=== PATIENT | female | born 1965 | race Two or more races ===

== ENCOUNTER 2024-10-09 12:30 | Inpatient (IN) | payer OTHER, SELFPAY ==
[2024-10-09] VITALS (8 sets, daily range): BP systolic 124–156; BP diastolic 83–106; PULSE 78–151; RESP 18–26; TEMP 36.9–38.3; O2SAT 92–97; BMI 77.2; BMI 66.6
--- NOTE | 2024-10-09 12:59 | XR_ITS ---
Examination: Foot, left, 3 views Technique: AP, oblique, lateral views foot, 3 views Date and time of exam: 4 1337 hrs. Indications: Foot pain this week no trauma Findings: Moderate osteopenia The films are severely overpenetrated No fracture No cortical bone destruction Mild to moderate osteoarthritis first metatarsophalangeal joint Prominent soft tissue swelling dorsum of the foot 4 mm plantar bony calcaneal spur Impression: Prominent soft tissue swelling dorsum of the foot No cortical bone obstruction or foreign body
--- NOTE | 2024-10-09 12:59 | XR_ITS ---
Examination: Duplex scan of the lower extremity, unilateral left complete Date and time of exam: October 09, 2024 1415 hrs. Indications: Left leg swelling and pain beginning 3 days ago Technique: Duplex scan of the extremity veins using B-mode/grayscale imaging and Doppler spectral analysis and color flow Attention is directed to internal echogenicity, compression and augmentation involving these veins, color flow assessment, spectral analysis Findings: Major deep venous structures in the extremity demonstrate normal course and caliber. There is no evidence of deep vein thrombosis. Normal color flow and spectral analysis Impression: Negative for DVT..
--- NOTE | 2024-10-09 12:59 | PD.EDRME ---
Rapid Medical Screening Exam RME Arrival date/time: 10/09/24 12:30 Chief Complaint: Extremity Problem,Nontraumatic Time Seen by Provider: 10/09/24 12:36 Vital signs: Vital Signs Temperature 98.6 F 10/09/24 12:32 Pulse Rate 122 H 10/09/24 12:32 Respiratory Rate 18 10/09/24 12:32 Blood Pressure 126/89 H 10/09/24 12:32 Pulse Oximetry (%) 96 10/09/24 12:32 Oxygen Delivery Method Room Air 10/09/24 12:32 RME Narrative: LLE pain, redness, swelling x3 days. Hx lymphedema BLE
[2024-10-09 13:36] LABS: Basophils # (Auto) 0.1 Thou/mm3 (0.0-0.2); Basophils % (Auto) 1 % (0-2.5); Eosinophils % (Auto) 0 % (0-10); Hematocrit 38.6 % (36.0-46.0); Hemoglobin 12.7 g/dL (12.0-16.0); Immature Granulocytes % (Auto) 1 % (0-0); Immature Granulocytes Auto 0.25 Thou/mm3 (0.00-0.00); Lymphocytes # (Auto) 1.8 Thou/mm3 (1.0-4.8); Lymphocytes % (Auto) 9 % (10-50); Mean Corpuscular HGB Conc 32.9 g/dl (31.0-37.0); Mean Corpuscular Hemoglobin 29.5 pg (25.0-35.0); Mean Corpuscular Volume 90 fL (80-100); Monocytes # (Auto) 0.8 Thou/mm3 (0.0-0.8); Monocytes % (Auto) 4 % (0-12); Neutrophils # (Auto) 17.7 Thou/mm3 (1.8-7.7); Neutrophils % (Auto) 86 % (37-80); Nucleated Red Blood Cell # 0.04 Thou/mm3 (0.00-0.00); Nucleated Red Blood Cell % 0 /100 WBC (0); Platelet Count 152 Thou/mm3 (140-440); RDW Standard Deviation 43.7 fL (36.4-46.3); Red Blood Count 4.31 Miln/mm3 (4.00-5.20); White Blood Count 20.7 Thou/mm3 (3.6-11.0)
[2024-10-09 13:42] LABS: B-Type Natriuretic Peptide 227 pg/mL (0-100)
[2024-10-09 13:43] LABS: Alanine Aminotransferase 25 U/L (10-49); Albumin, Serum 4.2 gm/dL (3.5-5.0); Albumin/Globulin Ratio 1.4 (1.2-2.2); Alkaline Phosphatase 127 U/L (46-116); Anion Gap 4 (7-16); Aspartate Amino Transferase 21 U/L (0-34); BUN/Creatinine Ratio 14 Ratio (12-20); Blood Urea Nitrogen 13 mg/dL (9-23); C-Reactive Protein 28.3 mg/dL (0.0-0.9); Calcium 9.1 mg/dL (8.3-10.6); Calcium (Corrected) 9.1 mg/dL (8.5-10.1); Carbon Dioxide 28.5 mMol/L (20.0-31.0); Chloride 96 mMol/L (98-107); Creatinine (Component) 0.9 mg/dL (0.6-1.3); Estimated Creatinine Clearance 121.6 mL/min (>60); Globulin 2.9 gm/dL (2.3-3.5); Glucose 203 mg/dL (74-106); Osmolality,Calculated 263 (275-295); Potassium 3.8 mMol/L (3.4-5.1); Sed Rate (ESR) 93 mm/hr (0-30); Sodium 128 mMol/L (136-145); Total Protein 7.1 gm/dL (5.7-8.2); eGFR > 60 See Note
--- NOTE | 2024-10-09 15:02 | PD.EDEXREM ---
ED Extremity Problem RME/HPI General Chief complaint: Extremity Problem,Nontraumatic Stated complaint: LEFT LEG PAIN/SWELLING x 3 DAYS, DENIES INJURY Time Seen by Provider: 10/09/24 12:36 Arrival date/time: 10/09/24 12:30 RME / HPI RME / HPI Narrative: 58-year-old female patient with significant history of bilateral lymphedema, congestive heart failure, hypertension, came in with family for evaluation regarding sudden onset of worsening right lower leg swelling and redness for the last 3 days, getting worse for the last 2 days. Patient also complained of worsening cough, dyspnea on exertion, and orthopnea,. Patient denies any trauma to the leg. Denies any other complaints except for pain also. No medications taken prior to arrival. Related Data Allergies Allergy/AdvReac Type Severity Reaction Status Date / Time No Known Allergies Allergy Verified 10/09/24 12:33 Review of Systems Review of Systems Narrative Review of Systems: Review of system reviewed and within normal limits except mentioned in HPI ED Exam Narrative Physical exam: VITAL SIGNS: Reviewed. GENERAL APPEARANCE: Alert and interactive, follows commands, no acute distress, HEAD AND FACE: Non-traumatic. ENT: PERRL, pink conjunctivitis, eyelid no trauma, Mucous membrane moist. NECK: Supple, nontender, no nuchal rigidity. CHEST: No tenderness, no crepitus, no paradoxical movement, no retractions. LUNGS: Clear, well ventilated, symmetric, no rales, no wheezing, no ronchi, no stridor, good breath sounds bilaterally. HEART: Regular rate, regular rhythm, no murmur, no gallops. ABDOMEN: Soft, positive bowel sounds, nondistended, no guarding, nontender, no rebound, no masses, RECTAL: Deferred. GENITAL: Deferred. NEUROLOGICAL: Gross motor function intact sensory function intact, Appropriate for age. MUSCULOSKELETAL: low back nontender, full range of motion. EXTREMITIES: Right lower leg swelling, redness, tenderness no skin breakdown noted no cyanosis noted, +3 edema bilateral lower extremity SKIN: Color pink, dry, no rash, no lacerations, no abrasions, no contusions. LYMPHATICS: Deferred. Course Quality Measures none Orders Category Date Time Status Bedside COVID-19 Antigen Test NOW Care 10/09/24 17:12 Active COVID-19 Screening Questionnaire NOW Care 10/09/24 15:46 Active Decision to Admit X1 Care 10/09/24 15:[address] lower leg LT wo con Stat Exams 10/09/24 16:31 Completed US venous duplex LE LT Stat Exams 10/09/24 12:59 Completed XR foot comp LT min 3V Stat Exams 10/09/24 12:59 Completed BNP [B-Type Natriuretic Peptide] Stat Lab 10/09/24 13:16 Completed Blood Culture (Lab) Stat Lab 10/09/24 15:30 Received CBC Stat Lab 10/09/24 13:16 Completed CMP [Comprehensive Metabolic Panel] Stat Lab 10/09/24 13:16 Completed CRP [C-Reactive Protein] Stat Lab 10/09/24 13:16 Completed ESR [Sed Rate (ESR)] Stat Lab 10/09/24 13:16 Completed Lactate (Lactic Acid) Stat Lab 10/09/24 15:27 Completed Procalcitonin Stat Lab 10/09/24 15:27 Completed Vancomycin,Trough Timed Lab 10/11/24 09:00 Ordered Furosemide Inj [Lasix Inj] Med 10/09/24 15:01 Discontinued 40 mg IVP X1 ONE Piper/Tazo 3.375 gm [Zosyn] Med 10/09/24 15:02 Discontinued 3.375 gm in 50 ml IV X1 Vancomycin Inj 1,000 mg Med 10/09/24 17:09 Discontinued Sodium Chloride 0.9% 250 ml [Ns] 250 ml IV X1 Vancomycin Inj 1,000 mg Med 10/10/24 10:00 Active Vancomycin Inj 750 mg Sodium Chloride 0.9% 500 ml [Ns] 500 ml IV Q12H Vancomycin Inj 2,000 mg Med 10/09/24 17:45 Discontinued Sodium Chloride 0.9% 500 ml [Ns] 500 ml IV X1 Vancomycin Pharmacy to Dose Med 10/10/24 09:00 Active 1 each IV QDAY PRN Vital Signs Vital signs: Vital Signs Temperature 98.6 F 10/09/24 12:32 Pulse Rate 122 H 10/09/24 12:32 Respiratory Rate 18 10/09/24 12:32 Blood Pressure 126/89 H 10/09/24 12:32 Pulse Oximetry (%) 96 10/09/24 12:32 Oxygen Delivery Method Room Air 10/09/24 12:32 Extremity Problem MDM Narrative MDM Narrative:: 58-year-old female patient with significant history of bilateral lymphedema, congestive heart failure, hypertension, came in with family for evaluation regarding sudden onset of worsening right lower leg swelling and redness for the last 3 days, getting worse for the last 2 days. Patient also complained of worsening cough, dyspnea on exertion, and orthopnea,. Patient denies any trauma to the leg. Denies any other complaints except for pain also. No medications taken prior to arrival. Laboratory workup is significant for leukocytosis of 20.7. Sodium was noted to be 128, CT scan of the lower extremity showed Extensive edema in the left lower extremity Soft tissue defect lower leg adjacent to the distal fibula with periosteal new bone involving the fibula at this site consistent with early osteomyelitis Recommend MRI lower leg without contrast follow-up Patient ultrasound of the lower extremities negative for DVT Patient received IV Zosyn. Spoke with Dr. Hall, hospitalist, admitted the patient. Patient data External records reviewed:: None Clinical information provided by:: patient and family Social determinants that could affect healthcare access:: none Patient has the following chronic illnesses:: Hypertension, chronic lymphedema bilateral lower extremity How is presenting disease/condition affected by chronic disease/condition?: exacerbated by Evaluation data The following diagnostics were reviewed and interpreted by me:: lab results and radiology exam(s) Lab and/or radiology exams considered but not ordered:: None Interpretation Summary: CT scan of the lower extremity showed Extensive edema in the left lower extremity Soft tissue defect lower leg adjacent to the distal fibula with periosteal new bone involving the fibula at this site consistent with early osteomyelitis Recommend MRI lower leg without contrast follow-up CBC significant for leukocytosis. Pro-Ryan was noted to be 0.72. Ultrasound of the lower extremity negative for DVT. Medications / Prescriptions Medications or Prescriptions considered but not ordered:: None Medication administrations:: Medication Administration History Acetaminophen (Acetaminophen 325 Mg Tablet) 650 mg PO Q6H PRN PRN Reason: Fever >101.5 Stop: 11/08/24 18:28 Last Admin: 10/09/24 19:45 Dose: 650 mg Documented By: MATTHEW Enoxaparin Sodium (Enoxaparin Sod Inj 60 Mg/0.6 Ml Syringe) 60 mg SC BID [facility] Stop: 10/23/24 20:59 Last Admin: 10/09/24 21:21 Dose: 60 mg Documented By: MATTHEW Vancomycin HCl 1,000 mg/Vancomycin HCl 750 mg/ Sodium Chloride 500 mls @ 172 mls/hr IV Q12H [facility] Stop: 10/17/24 09:59 Piperacillin/Tazobactam/Dextrose (Zosyn) 50 mls @ 12.5 mls/hr IV Q8HR [facility] Stop: 10/17/24 05:59 Sodium Chloride (Ns) 1,000 mls @ 100 mls/hr IV .Q10H ONE Stop: 10/10/24 06:02 Last Admin: 10/09/24 20:46 Dose: 100 mls/hr Documented By: MATTHEW Magnesium Hydroxide (Milk Of Magnesia Susp 30 Ml Udc) 30 ml PO QDAY PRN; Protocol PRN Reason: CONSTIPATION Stop: 11/08/24 18:28 Ondansetron HCl (Ondansetron Inj 2 Mg/Ml Inj 2 Ml) 4 mg IV Q6H PRN; Protocol PRN Reason: NAUSEA OR VOMITING Stop: 11/08/24 18:28 Pharmacy Consult (Vancomycin Pharmacy To Dose 1 Each Each) 1 each IV QDAY PRN PRN Reason: PROTOCOL Stop: 11/09/24 08:59 Discontinued Medications Furosemide (Furosemide Inj 10 Mg/Ml 4ml Vial) 40 mg IVP X1 ONE Stop: 10/09/24 15:02 Last Admin: 10/09/24 17:12 Dose: 40 mg Documented By: NOAH Piperacillin/Tazobactam/Dextrose (Zosyn) 3.375 gm in 50 mls @ 100 mls/hr IV X1 ONE Stop: 10/09/24 15:31 Last Infusion: 10/09/24 19:22 Dose: Infused Documented By: Admin: 10/09/24 17:12 Dose: 100 mls/hr Documented By: NOAH Vancomycin HCl 1,000 mg/ (Sodium Chloride) 250 mls @ 150 mls/hr IV X1 ONE Stop: 10/09/24 18:48 Last Admin: 10/09/24 19:25 Dose: Not Given Documented By: MATTHEW Non-Admin Reason: Cancelled by Provider Vancomycin HCl 2,000 mg/ (Sodium Chloride) 500 mls @ 150 mls/hr IV X1 ONE Stop: 10/09/24 21:04 Last Admin: 10/09/24 20:06 Dose: 10 mg/min, 150 mls/hr Documented By: MATTHEW Sodium Chloride (Ns) 1,000 mls @ 125 mls/hr IV .Q8H [facility] Stop: 11/08/24 19:07 Last Admin: 10/09/24 19:22 Dose: Not Given Documented By: DB Non-Admin Reason: Cancelled by Provider Patient received vancomycin, IV Zosyn, Consultations Consultation(s) initiated? (list below): No Diagnosis Extremity Problem Differential Diagnosis: cellulitis, deep venous thrombosis of upper extremity and lower extremity edema Most likely diagnosis given after review of the tests above:: Lower leg cellulitis Admission Indicated Admission indicated?: indicated Admission Request Was there a request for admission?: Yes Admission Attestation Admission request attestation: Discussed case with [hall] from Hospitalist service regarding admission. Discussed patients ED course, exam findings, labs, and radiology results. The Hospitalist [agrees, to accept the patient for admission. Disposition Plan Disposition Plan: Admit Discharge Plan Plan Patient Disposition: Admit Acute Care w/in Hospital Problem List Clinical Impression: Lower extremity edema, Cellulitis
[2024-10-09 15:54] LABS: Lactate (Lactic Acid) 1.6 mMol/L (0.4-2.0)
[2024-10-09 16:22] LABS: Procalcitonin 0.72 ng/ml (0.0-0.49)
--- NOTE | 2024-10-09 16:31 | XR_ITS ---
Examination: CT left lower today, without contrast. 2-D sagittal reconstructions. 2-D coronal reconstructions. 3-D reconstructions. Date and time of exam:October 09, 2024 1953 hrs. Indications: Left leg swelling and pain beginning 3 days ago CTDI: vol (mGy):15.6 DLP: (mGycm):1022 Technique: Multiple 1.25 mm axial sections of the left lower leg without intravenous contrast have been obtained. 2-D sagittal and coronal reconstructions have been obtained. 3-D reconstructions have been obtained. Low dose protocols were performed. One or more of the following dose reduction techniques were used; automated exposure control, adjustment of the mA and/or KV according to patient size, use of iterative reconstruction technique. Findings: Edema in the subcutaneous fatty tissue No patellar dislocation Moderate osteopenia No cortical bone destruction Skin thickening No soft tissue abscess Soft tissue defect adjacent to the distal fibula with periosteal new bone at this site, axial image 197 Impression: Extensive edema in the left lower extremity Soft tissue defect lower leg adjacent to the distal fibula with periosteal new bone involving the fibula at this site consistent with early osteomyelitis Recommend MRI lower leg without contrast follow-up
[2024-10-09] MEDS: FUROSEMIDE INJ 10 MG/ML 4ML VIAL 40 MG IVP (17:12)
[2024-10-09] MEDS: PIPER/TAZO 3.375 GM 3.375 GM/50 ML BAG IV (17:12)
--- NOTE | 2024-10-09 18:31 | ECHO_ITS ---
Transthoracic Echo Report Ht (in): 64 Wt (lb): 450 Exam Location: Echo Lab Status: Emergency [employer] Service Attendant: Leigh Ann Treviño Indications: Procedure Performed: BP: / HR: Technical Quality: Technically difficult study MEASUREMENTS (Male / Female) Normal Values 2D ECHO LV Diastolic Diameter PLAX 5.9 cm 4.2 - 5.9 / 3.9 - 5.3 cm LV Systolic Diameter PLAX 4.2 cm IVS Diastolic Thickness 1.3 cm 0.6 - 1.0 / 0.6 - 0.9 cm LVPW Diastolic Thickness 1.1 cm 0.6 - 1.0 / 0.6 - 0.9 cm LV Relative Wall Thickness 0.4 LVOT Diameter 1.9 cm M-MODE Aortic Root Diameter MM 2.3 cm LA Systolic Diameter MM 4.6 cm LA Ao Ratio MM 2.0 AV Cusp Separation MM 1.7 cm DOPPLER AV Peak Velocity 122.0 cm/s AV Peak Gradient 6.0 mmHg AV Mean Gradient 3.0 mmHg AV Velocity Time Integral 21.7 cm LVOT Peak Velocity 107.0 cm/s LVOT Peak Gradient 4.6 mmHg LVOT Velocity Time Integral 18.1 cm AV Area Cont Eq vti 2.4 cm? AV Area Cont Eq pk 2.5 cm? MR Peak Velocity 461.5 cm/s MR Peak Gradient 85.2 mmHg LV E' Lateral Velocity 9.1 cm/s LV E' Septal Velocity 6.7 cm/s TR Peak Velocity 296.5 cm/s TR Peak Gradient 35.2 mmHg FINDINGS Left Ventricle Normal left ventricular size, wall thickness, systolic function with no obvious regional wall motion abnormalities. Normal left ventricular diastolic filling pattern for age. The ejection fraction is v isually estimated at 55 %. Right Ventricle The right ventricle is normal in size and systolic function. The estimated right ventricular systoli c pressure, 47 mmHg. RAP 5. Left Atrium The left atrium is normal by two-dimensional, color flow and Doppler imaging with no structural abnormalities, no thrombus formation present. Right Atrium The right atrium is normal by two-dimensional imaging, color flow and Doppler imaging with no struct ural abnormalities, no thrombus formation present. Atrial Septum The interatrial septum appears normal with no evidence of a shunt. Aorta The aorta is normal by two-dimensional, color flow and Doppler interrogation. Mitral Valve The mitral valve is normal by two-dimensional, color flow and Doppler interrogation. There is modera te mitral valve regurgitation, stenosis or prolapse. Aortic Valve The aortic valve is trileaflet and normal by two-dimensional, color flow and Doppler interrogation. There is no significant aortic valve regurgitation. Tricuspid Valve The tricuspid valve is normal by two-dimensional, color flow and Doppler interrogation. There is mod erate tricuspid valve regurgitation. Pulmonic Valve The pulmonic valve is not well visualized. There is no significant pulmonic valve regurgitation. Vessels The pulmonary artery appears normal. The inferior vena cava pulmonary and hepatic veins appear gucci l. Pericardium The pericardium is normal by two-dimensional imaging. There is no significant pericardial effusion. CONCLUSIONS Indication: Hypertension Suboptimal images due to body habitus. Normal LV size and function with an estimated EF of 50 to 55%. Mild LVH Diastolic dysfunction indeterminate Normal RV size and function. Estimated RVSP, 47 mmHg. RAP 5. At least moderate PAH Mild MR and moderate TR. Rest of the valve structures not visualized appropriately well. Luis Valdezumansoniaa (Electronically Signed) Final Date: 12 October 2024 21:41
--- NOTE | 2024-10-09 18:33 | ESHP_ITS ---
Documentation for date of: 10/09/24 [facility] History of Present Illness Chief complaint: Pain and swelling of left leg History of present illness: A 58-year-old female who is morbidly obese, history of hypertension on losartan and hydrochlorothiazide presented to the hospital with chief complaints of pain, swelling and redness of left lower extremity since 1 week. Patient was apparently normal 1 week back, then noticed mild pain in the left toes but despite that patient was going to her work. Later after 3 days, patient noticed redness and swelling of left great, second and third toe which gradually extended up to the knee over last 3 days and she was unable to ambulate and go to work. Patient could not get to the hospital as she was unable to ambulate by herself and she did not get a ride. On the day of admission, she called his son who came by and drove her to the hospital. Patient had history of chronic on and off ulcerations of lower extremities that heals on its own without any intervention. Denies fever, shortness of breath, abdominal pain, burning micturition, no swelling noted in the other extremity, trauma. Reported that she is having shortness of breath without orthopnea, PND and cough over years from now. ED Course: -Initial vitals were blood pressure 126/89 mmHg, pulse rate 122 bpm, respiratory rate 18/min, temperature 98.6 ?F, SpO2 96% with room air. -Labs significant for WBC 20.7, Hb 12.7, platelets 152. ESR is 93, sodium 128, BUN 13, creatinine 0.9, lactate 1.6, CRP 28.3, BNP 227, procalcitonin 0.72. -Venous Doppler done is negative for DVT. Foot x-ray showed prominent swelling without any bony destruction noted. -In the ED, patient was given 40 Mg of Lasix, Zosyn. -Patient was admitted for sepsis secondary to cellulitis. Past medical history: Hypertension Past surgical history: Left leg fracture at the age of 1 Social history: Denies smoking, alcohol, other illicit drug abuse. Review of Systems Review of Systems Narrative Review of Systems: Constitutional: No Weight Change, No Fever, No Chills, No Night Sweats, Fatigue, Malaise ENT/Mouth: No Hearing Changes, No Ear Pain, No Nasal Congestion, No Sinus Pain, No Hoarseness, No sore throat, No Rhinorrhea, No Swallowing Difficulty Eyes: No Eye Pain, No Swelling, No Redness, No Foreign Body, No Discharge, No Vision Changes Cardiovascular: No Chest Pain, SOB, No PND, No Dyspnea on Exertion, No Orthopnea, No Edema, No Palpitations Respiratory: Cough, No Sputum, No Wheezing, Dyspnea Gastrointestinal: No Nausea, No Vomiting, No Diarrhea, No Constipation, No Pain, No Heartburn, No Anorexia, No Dysphagia, No Hematochezia, No Melena, No Flatulence, No Jaundice Genitourinary: No Dysuria, No Urinary Frequency, No Hematuria, No Urinary Incontinence, No Urgency, No Flank Pain, No Urinary Flow Changes, No Hesitancy Musculoskeletal: No Arthralgias, No Myalgias, No Joint Swelling, No Joint Stiffness, No Back Pain, No Neck Pain, No Injury History Skin: Skin Lesions -multiple small ulcers noted on bilateral lower extremities, Pruritis, swelling and erythema noted on left lower extremity Neuro: No Weakness, No Numbness, No Paresthesias, No Loss of Consciousness, No Syncope, No Dizziness, No Headache, No Coordination Changes, No Recent Falls Exam Vital Signs Temp Pulse Resp BP Pulse Ox O2 Del Method 100.6 F H 151 H 20 156/106 H 97 Room Air 10/09/24 16:04 10/09/24 17:12 10/09/24 16:04 10/09/24 17:12 10/09/24 16:04 10/09/24 16:04 Narrative Exam General: Awake. Morbidly obese HEENT: Normocephalic, atraumatic, mucous membranes moist. Heart: Regular rate and rhythm, no murmurs. Lungs: Clear to auscultation with no wheezing or crackles. Abdomen: Soft, nondistended, nontender, positive bowel sounds. ?No guarding or rebound tenderness. Neurologic: Alert and oriented x3, no gross neurological deficit, and patient able to move all 4 extremities. Extremities: Swelling and erythema noted on left lower extremity. Multiple ulcers noted on bilateral lower extremity Skin: No rash or ecchymoses. Results: Labs 10/10/24 04:38 10/10/24 13:40 Labs: Short CBC 10/09/24 Range/Units 13:16 WBC 20.7 H (3.6-11.0) Thou/mm3 Hgb 12.7 (12.0-16.0) g/dL Hct 38.6 (36.0-46.0) % Plt Count 152 (140-440) Thou/mm3 BMP 10/09/24 13:16 Sodium 128 L Potassium 3.8 Chloride 96 L Carbon Dioxide 28.5 BUN 13 Creatinine 0.9 Glucose 203 H Calcium 9.1 Liver Function 10/09/24 Range/Units 13:16 Total Bilirubin 1.0 (0.3-1.2) mg/dL AST 21 (0-34) U/L ALT 25 (10-49) U/L Alkaline Phosphatase 127 H (46-116) U/L Albumin 4.2 (3.5-5.0) gm/dL Quality Measures Quality Measures VTE prophylaxis Medications Home Medications and Allergies Home Medications ?Medication ?Instructions ?Recorded ?Confirmed ?Type losartan 100 1 tab PO QDAY 10/09/24 10/09/24 History mg-hydrochlorothiazide 12.5 mg tablet Allergies Allergy/AdvReac Type Severity Reaction Status Date / Time No Known Allergies Allergy Verified 10/09/24 12:33 Visit Medications Acetaminophen (Acetaminophen 325 Mg Tablet) 650 mg PO Q6H PRN PRN Reason: Fever >101.5 Stop: 11/08/24 18:28 Enoxaparin Sodium (Enoxaparin Sod Inj 40 Mg/0.4 Ml Syringe) 60 mg SC QDAY CASSY Stop: 10/24/24 08:59 Vancomycin HCl 2,000 mg/ (Sodium Chloride) 500 mls @ 150 mls/hr IV X1 ONE Stop: 10/09/24 21:04 Vancomycin HCl 1,000 mg/Vancomycin HCl 750 mg/ Sodium Chloride 500 mls @ 172 mls/hr IV Q12H CASSY Stop: 10/17/24 09:59 Magnesium Hydroxide (Milk Of Magnesia Susp 30 Ml Udc) 30 ml PO QDAY PRN; Protocol PRN Reason: CONSTIPATION Stop: 11/08/24 18:28 Ondansetron HCl (Ondansetron Inj 2 Mg/Ml Inj 2 Ml) 4 mg IV Q6H PRN; Protocol PRN Reason: NAUSEA OR VOMITING Stop: 11/08/24 18:28 Pharmacy Consult (Vancomycin Pharmacy To Dose 1 Each Each) 1 each IV QDAY PRN PRN Reason: PROTOCOL Stop: 11/09/24 08:59 Discontinued Medications Furosemide (Furosemide Inj 10 Mg/Ml 4ml Vial) 40 mg IVP X1 ONE Stop: 10/09/24 15:02 Last Admin: 10/09/24 17:12 Dose: 40 mg Piperacillin/Tazobactam/Dextrose (Zosyn) 3.375 gm in 50 mls @ 100 mls/hr IV X1 ONE Stop: 10/09/24 15:31 Last Admin: 10/09/24 17:12 Dose: 100 mls/hr Vancomycin HCl 1,000 mg/ (Sodium Chloride) 250 mls @ 150 mls/hr IV X1 ONE Stop: 10/09/24 18:48 Assessment & Plan Plan A 58-year-old female who is morbidly obese, history of hypertension on losartan and hydrochlorothiazide presented to the hospital with chief complaints of pain, swelling and redness of left lower extremity since 1 week and admitted in the hospital for sepsis secondary to left lower extremity cellulitis. # Sepsis # Secondary to left lower extremity cellulitis # To rule out abscess # Leukocytosis -Came with complaint of lower extremity swelling, pain, redness since 5 days. -At the time of admission patient is found to have a temperature of 101 ?F, blood pressure 156/106 mmHg, pulse rate 150 bpm. SpO2 97% with room air -On examination, tenderness, localized rise of temperature with induration is noted in left lower extremity extending up to the knee. -Bilateral peripheral pulses are felt. -Labs showed WBC 20.7, ESR 93, CRP 28.3. Procalcitonin is 0.72 -Patient fits into sepsis criteria = fever 101 ?F, WBC 20.7, pulse rate 150+ cellulitis -Venous Doppler of bilateral lower extremity is negative for DVT -Foot x-ray showed soft tissue swelling without signs of osteomyelitis. Plan -Bolus is not given as the patient appears to be euvolemic, mucous membranes are moist with good capillary refill -started on maintenance fluids @ 100ml/hr -Blood cultures were sent. -Vancomycin and zosyn is started [10/09 - -HbA1c, TSH is ordered. -CT of bilateral lower extremities is ordered. -Acetaminophen as needed is added # Hyponatremia Likely due to decreased oral intake vs thiazide -Sodium at the time of admission is 128 and osmolality is 263 -Patient is using losartan and hydrochlorothiazide combination. -Patient appears euvolemic as of now plan -Stopped Hydrochlorthiazide -Ordered urine sodium -Will continue to monitor electrolytes and replete accordingly. # History of hypertension -Patient is using losartan and hydrochlorothiazide combination -Will monitor blood pressures for now and add medications as needed Hospital Maintenance: Dispo: MedSurg DVT ppx: Lovenox 60 Mg subcutaneous twice daily in view of high BMI GI ppx: Not needed Diet: Regular IV lines: Peripheral Code status: Full code Patient plan of care was discussed with the attending physician, Dr. Isabel Zamudio, PGY1 Attending Provider Attestation/Addendum I, Marlen Hall DO, attest that I was physically present for the almazan portions of the service and evaluated the patient with the resident and I reviewed and discussed the case with the resident and agree with the resident's findings and plans of care as documented above Patient is a 58-year-old female with past medical history of class III obesity, hypertension, CHF who presented to the ED with worsening lower extremity swelling and pain that began about 1 week ago. Patient states that the pain had woken her up in the middle the night last week initially starting in her third toe on the left foot with numbness and tingling radiating upwards. Patient suffers from lymphedema in bilateral lower extremities. 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 Patient has some excoriations that are healing at various stages on her distal vazquez with some weeping due to scratching of her lower extremity. Patient also had some well- healed excoriations on her right lower extremity. Left lower extremity is visibly much more edematous than the right. Her foot and vazquez area has about 3+ pitting edema. There is erythema that is ascending up to her medial thigh region. There is a well-healed scar on the lateral region of the distal extremity due to a fracture in her childhood. Patient reports having some subjective chills, but denies any fevers. She also denies any shortness of breath, chest pain, nausea, vomiting, dysuria, diarrhea. She denies any recent trauma of her lower extremity prior to the start of her symptoms. 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 She does take losartan HCTZ at home otherwise. In the ED, patient was found to have a blood pressure 126/89, tachycardia with heart rate of 122, for Tmax of 100.6. Labs reveal leukocytosis to 20.7, ESR 93, sodium 128, glucose 203, CRP at 28.3 and procalcitonin 0.72. The posterior aspect of her lower extremity is significantly tender, edematous, warm. Patient is unable to lift her left leg due to pain and swelling. There is no crepitus noted on her legs or hyperpigmentation. It is noted that there are some popped blisters on the dorsal aspect of her left foot. There is significant edema around her ankles of the left lower extremity. A venous Doppler ultrasound was done of the left lower extremity that shows no evidence of DVT. A foot x-ray shows prominent soft tissue swelling of the dorsum of the foot. There is low suspicion for necrotizing fasciitis at this time as lactic acid is 1.6 and patient is hemodynamically stable. She had gone Lasix in the ED due to significant lower extremity swelling. However, patient is septic secondary to cellulitis. Will give her gentle IV fluids, started on vancomycin and Zosyn. Will follow-up on blood cultures. Will admit to med/telemetry for further workup and medical management of the sepsis of her left lower extremity. A CT of the left lower extremity has been ordered and pending to rule out any abscesses. However, patient reports no purulent drainage, only water from the excoriations. Will check an A1c as patient is noted to have a glucose of 200. Patient denies any history of diabetes. Will monitor volume status closely due to reported CHF. Will order an echocardiogram. Patient denies any symptoms of sleep apnea. Patient might have heart failure with preserved ejection fraction secondary to her morbid obesity. Patient will need wound care due to her wounds. Ultimately, patient needs to have compression wrapping due to significant lymphedema.
--- NOTE | 2024-10-09 19:09 | PD.ADDCONS ---
Documented by User: Lorie Caceres 10/09/24 19:21 Addendum Consultation Addendum Date of report being addended: 10/09/24 Narrative: 58 year old female with past medical history significant for bilateral lymphedema, congestive heart failure, and hypertension presents to the Emergency Department with complaint of right lower leg pain, swelling and redness for the last 3 days, getting worse for the last 2 days. Please refer to the emergency department record for history and examination from initial visit.? 1900: I got called to do procedure, 20 G IV placement in right AC (see procedure note below). ED Procedures Procedure Comment Ultrasound-guided placement of 20-gauge intravenous catheter in the right antecubital vein (AC) Indication: Need for intravenous access for medication administration/fluid resuscitation. Informed Consent: The procedure was explained to the patient, including risks such as bleeding, infection, and vascular injury. Verbal consent was obtained. Complications: None noted during the procedure. Documented by User: Tanna Rodriguez MD 10/29/24 07:06 Addendum Consultation Addendum Narrative: 58 year old female with past medical history significant for bilateral lymphedema, congestive heart failure, and hypertension presents to the Emergency Department with complaint of right lower leg pain, swelling and redness for the last 3 days, getting worse for the last 2 days. Please refer to the emergency department record for history and examination from initial visit.? 1900: IV access unobtainable after multiple attempts. Plan for US guided peripheral IV placement by me. (see procedure note below). ED Procedures Procedure Comment Ultrasound-guided placement of peripheral IV catheter Indication: Need for intravenous access for medication administration/fluid resuscitation. Identified vein using US 20-gauge intravenous catheter placed in right antecubital vein (AC) Informed Consent: The procedure was explained to the patient, including risks such as bleeding, infection, and vascular injury. Verbal consent was obtained. Complications: Tolerated well. No complications.
[2024-10-09] MEDS: ACETAMINOPHEN 325 MG TABLET 650 MG PO (19:45)
--- NOTE | 2024-10-09 20:02 | XR_ITS ---
Examination: AP chest single view Technique one AP portable upright chest single view Exam date and time: October 09, 2024 2019 hrs. Indications: Fluid overload with shortness of breath today. Findings: Mild to moderate CHF Moderate enlargement cardiac contour Prominent vascular congestion with perihilar edema Impression: Mild to moderate CHF
[2024-10-09] MEDS: Vancomycin Inj 2,000 MG in SODIUM CHLORIDE 0.9% 500 ML 500 ML 150 MG IV (20:06)
[2024-10-09] MEDS: SODIUM CHLORIDE 0.9% 1000 ML 1,000 ML 100 ML IV (20:46)
[2024-10-09 21:02] LABS: INR 1.1 (0.9-1.3); Partial Thromboplastin Time 28.5 Seconds (22.0-36.0)
[2024-10-09] MEDS: ENOXAPARIN SOD INJ 60 MG/0.6 ML SYRINGE SC (21:21)
[2024-10-10] VITALS (13 sets, daily range): BP systolic 94–130; BP diastolic 71–87; PULSE 89–152; RESP 13–23; TEMP 36.3–37.2; O2SAT 91–98; BMI 66.6
--- NOTE | 2024-10-10 02:48 | PC.NURSE ---
Dr morris notified of pts HR sustaining in the 150's for 1 minute then dropping and sustaining in the 120's. All other vital signs stable and patient asymptomatic. No new orders at this time
--- NOTE | 2024-10-10 03:30 | PC.NURSE ---
Dr morris notified of pt Hr to the 150's again, pt still asymptomatic and other vital signs stable. Baldomero states she will place order for a fluid bolus
[2024-10-10] MEDS: SODIUM CHLORIDE 0.9% 500 ML 500 ML 999 ML IV (03:40)
[2024-10-10] MEDS: PIPER/TAZO 3.375 GM 50 ML IV ×3 (05:10→22:05)
[2024-10-10 06:19] LABS: Basophils # (Auto) 0.1 Thou/mm3 (0.0-0.2); Basophils % (Auto) 1 % (0-2.5); Eosinophils % (Auto) 0 % (0-10); Hemoglobin 12.1 g/dL (12.0-16.0); Immature Granulocytes % (Auto) 2 % (0-0); Immature Granulocytes Auto 0.45 Thou/mm3 (0.00-0.00); Lymphocytes # (Auto) 2.2 Thou/mm3 (1.0-4.8); Lymphocytes % (Auto) 10 % (10-50); Mean Corpuscular HGB Conc 32.7 g/dl (31.0-37.0); Mean Corpuscular Hemoglobin 29.3 pg (25.0-35.0); Mean Corpuscular Volume 90 fL (80-100); Monocytes # (Auto) 0.9 Thou/mm3 (0.0-0.8); Monocytes % (Auto) 4 % (0-12); Neutrophils % (Auto) 84 % (37-80); Nucleated Red Blood Cell # 0.02 Thou/mm3 (0.00-0.00); Nucleated Red Blood Cell % 0 /100 WBC (0); Platelet Count 172 Thou/mm3 (140-440); RDW Standard Deviation 43.8 fL (36.4-46.3); Red Blood Count 4.13 Miln/mm3 (4.00-5.20); White Blood Count 22.7 Thou/mm3 (3.6-11.0)
[2024-10-10 06:34] LABS: Sodium,Urine Random < 10.0 mMol/L (20.0-110.0)
[2024-10-10 06:41] LABS: Alanine Aminotransferase 19 U/L (10-49); Albumin, Serum 3.8 gm/dL (3.5-5.0); Albumin/Globulin Ratio 1.3 (1.2-2.2); Alkaline Phosphatase 143 U/L (46-116); Anion Gap 10 (7-16); Aspartate Amino Transferase 19 U/L (0-34); BUN/Creatinine Ratio 13 Ratio (12-20); Bilirubin,Total 0.9 mg/dL (0.3-1.2); Blood Urea Nitrogen 10 mg/dL (9-23); Calcium 8.7 mg/dL (8.3-10.6); Calcium (Corrected) 8.9 mg/dL (8.5-10.1); Carbon Dioxide 27.2 mMol/L (20.0-31.0); Cardiac Risk Estimate 4.2 RATIO (3.7-5.6); Chloride 97 mMol/L (98-107); Cholesterol 96 mg/dL (132-200); Creatinine (Component) 0.8 mg/dL (0.6-1.3); Estimated Creatinine Clearance 123.4 mL/min (>60); Globulin 2.9 gm/dL (2.3-3.5); Glucose 128 mg/dL (74-106); HDL Cholesterol 23 mg/dL (40-60); LDL Cholesterol,Calculated 58 mg/dL (0-130); Magnesium 1.7 mg/dL (1.6-2.6); Osmolality,Calculated 269 (275-295); Sodium 134 mMol/L (136-145); Thyroid Stimulating Hormone 2.22 uIU/mL (0.55-4.78); Total Protein 6.7 gm/dL (5.7-8.2); Triglycerides 75 mg/dL (30-150); eGFR > 60 See Note
[2024-10-10 06:48] LABS: Glucose Estimated Average 151 mg/dL (80-131); Hemoglobin A1C 6.9 % Hgb (4.8-6.0)
--- NOTE | 2024-10-10 09:28 | EKG_ITS ---
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
[2024-10-10] MEDS: POTASSIUM CHLORIDE 20 mEq TABCR 40 MEQ PO (10:15)
[2024-10-10] MEDS: LOSARTAN POTASSIUM 25 MG TABLET 50 MG PO (10:15)
[2024-10-10] MEDS: FUROSEMIDE INJ 10 MG/ML 4ML VIAL 40 MG IVP (10:16)
[2024-10-10] MEDS: ACETAMINOPHEN 325 MG TABLET 650 MG PO (10:16)
[2024-10-10] MEDS: Magnesium Sulfate 2 GM Ivpb 2 GM/50 ML BAG IV (10:17)
[2024-10-10] MEDS: ENOXAPARIN SOD INJ 60 MG/0.6 ML SYRINGE SC ×2 (10:17→20:31)
[2024-10-10] MEDS: Vancomycin Inj 1,000 MG, Vancomycin Inj 750 MG in SODIUM CHLORIDE 0.9% 500 ML 500 ML 172 MG IV ×2 (10:45→21:45)
--- NOTE | 2024-10-10 11:29 | XR_ITS ---
Examination: CTA chest with intravenous contrast 2-D reconstructions 3-D reconstructions, vascular Date and time of exam: October 10, 2024 1651 hrs. Indications: Shortness of breath chest pain onset today CTDI: vol (mGy) 59.1 DLP: (mGycm) 571 Technique: Multiple axial sections of the thorax have been obtained. 3 mm slice thickness, from below the hemidiaphragms to above the apices of the lungs. Mediastinal and lung density settings have been obtained. 2-D sagittal and coronal reconstructions. 3-D angiographic renderings, 3-D volume renderings, 3D post processing, vascular maximum intensity projections obtained. Contrast administered is 100 cc Isovue-370 intravenous. Low dose protocols were performed. One or more of the following dose reduction techniques were used; automated exposure control, adjustment of the mA and/or KV according to patient size, use of iterative reconstruction technique. Findings: No thoracic aortic aneurysmal dilatation Pulmonary artery segments are not enlarged No pulmonary artery emboli No paratracheal tracheobronchial or bronchopulmonary adenopathy Prominent vascular congestion with subtle pulmonary edema in the lung bowen Fatty liver Spleen is not enlarged Suspicious for gallstones Impression: Negative for pulmonary artery emboli Mild CHF Recommend hepatobiliary sonography follow-up to confirm gallstones
[2024-10-10] MEDS: INSULIN LISPRO (AdmeLOG) 1 UNIT/0.01 ML UNIT SC ×2 (11:54→20:32)
[2024-10-10] MEDS: POTASSIUM CHLORIDE 20 mEq TABCR PO (11:54)
--- NOTE | 2024-10-10 12:06 | PC.SS ---
Zahra Heath is 24-year-old female admitted to Med-Surg for Cellulitis. SS conducted bedside contact with the patient to complete initial assessment and to discuss discharge planning. Patient confirmed demographic information. Patient identifies her son Reji Heath [phone] as her surrogate decision maker her other son Steve Coughlin as her POC [phone]. Patient resides at home with alone. Pt states she is able to complete all ADL?s independently, no need for any source of DME but has a walker and cane. Pts PCP is Dr. Upton (last visit was 3 weeks ago) and her pharmacy of choice is [facility] [place]. DC options discussed and pt wishes to return home. Pts family will provide transportation upon DC. No further intervention required at this time, sr. social media & mobile manager would be available to address any further concerns. DC Plan: Home PCP: Won
--- NOTE | 2024-10-10 12:59 | ESPR_ITS ---
Documentation for date of: 10/10/24 Subjective Subjective Interval history: Patient seen at bedside. Ordered CTA Chest to r/o PE as patient is tachycardic. DVT ruled on on LE US. On Vanc+Zosyn for LE cellulitis, WBC 20 -> 22, fever documented yesterday 101, no fevers over the last 24 hours Counseled on imaging finding of osteomyelitis. Will consult orthopedic surgery for further evaluation. Exam Vital Signs Temp Pulse Resp BP Pulse Ox O2 Del Method O2 Flow Rate 97.3 F 122 H 16 121/73 96 Nasal Cannula 2 10/10/24 11:52 10/10/24 11:52 10/10/24 11:52 10/10/24 11:52 10/10/24 11:52 10/10/24 11:52 10/10/24 11:52 Narrative Exam Constitutional Alert, oriented x4, obese (BMI 66) HEENT Vision grossly intact. Patent nares. Trachea midline. Respiratory Chest normal on inspection, soft crackles on auscultation bilaterally. Cardiovascular S1 and S2 audible, RRR. No murmurs or carotid bruit. No gross JVD. Abdominal Soft and non tender to palpation in all quadrants. BS + Genitourinary No bladder tenderness, no flank pain. Normal to palpation. Musculoskeletal Extremities tone within normal limits. B/L LE edema upto knees, LT LE cellulitis Neurological CN II - XII grossly intact. Unable to assess LE motor, sensation grossly intact. Normal UE Skin Warm, dry and intact. B/L crusted lesions on the distal LE, L>R Psychiatric Patient has a good affect, is cooperative. Objective Labs 10/10/24 04:38 10/10/24 13:40 Labs: Laboratory Results - last 24 hr 10/09/24 10/09/24 10/10/24 13:16 15:27 04:38 WBC 20.7 H 22.7 H RBC 4.31 4.13 Hgb 12.7 12.1 Hct 38.6 37.0 MCV 90 90 MCH 29.5 29.3 MCHC 32.9 32.7 RDW Std Deviation 43.7 43.8 Plt Count 152 172 Neut % (Auto) 86 H 84 H Lymph % (Auto) 9 L 10 [place] % (Auto) 4 4 Eos % (Auto) 0 0 Baso % (Auto) 1 1 Neut # (Auto) 17.7 H 19.0 H Lymph # (Auto) 1.8 2.2 [place] # (Auto) 0.8 0.9 H Eos # (Auto) 0.0 0.0 Baso # (Auto) 0.1 0.1 Immature Gran # (Auto) 0.25 H 0.45 H Absolute Nucleated RBC 0.04 H 0.02 H Immature Gran % 1 H 2 H Nucleated RBC % 0 0 ESR 93 H PT 12.0 INR 1.1 APTT 28.5 Sodium 128 L 134 L Potassium 3.8 3.0 L D Chloride 96 L 97 L Carbon Dioxide 28.5 27.2 Anion Gap 4 L 10 BUN 13 10 Creatinine 0.9 0.8 Estim Creat Clear Calc 121.6 123.4 eGFR > 60 > 60 BUN/Creatinine Ratio 14 13 Glucose [address] H [address] Glu mg/dL 151 H Hemoglobin A1c 6.9 H Calculated Osmolality 263 L 269 L Lactic Acid 1.6 Calcium 9.1 8.7 Corrected Calcium 9.1 8.9 Magnesium 1.7 Total Bilirubin 1.0 0.9 AST 21 19 ALT 25 19 Alkaline Phosphatase 127 H 143 H C-Reactive Prot, Quant 28.3 H B-Natriuretic Peptide 227 H Total Protein 7.1 6.7 Albumin 4.2 3.8 Globulin 2.9 2.9 Albumin/Globulin Ratio 1.4 1.3 Triglycerides 75 Cholesterol 96 L LDL Cholesterol, Calc 58 HDL Cholesterol 23 L Cholesterol/HDL Ratio 4.2 Procalcitonin 0.72 H TSH 2.22 Ur Random Sodium 10/10/24 06:00 WBC RBC Hgb Hct MCV MCH MCHC RDW Std Deviation Plt Count Neut % (Auto) Lymph % (Auto) [place] % (Auto) Eos % (Auto) Baso % (Auto) Neut # (Auto) Lymph # (Auto) [place] # (Auto) Eos # (Auto) Baso # (Auto) Immature Gran # (Auto) Absolute Nucleated RBC Immature Gran % Nucleated RBC % ESR PT INR APTT Sodium Potassium Chloride Carbon Dioxide Anion Gap BUN Creatinine Estim Creat Clear Calc eGFR BUN/Creatinine Ratio Glucose Estimated Ave Glu mg/dL Hemoglobin A1c Calculated Osmolality Lactic Acid Calcium Corrected Calcium Magnesium Total Bilirubin AST ALT Alkaline Phosphatase C-Reactive Prot, Quant B-Natriuretic Peptide Total Protein Albumin Globulin Albumin/Globulin Ratio Triglycerides Cholesterol LDL Cholesterol, Calc HDL Cholesterol Cholesterol/HDL Ratio Procalcitonin TSH Ur Random Sodium < 10.0 L Quality Measures Quality Measures none Assessment & Plan Assessment Current Active Medications: Generic Name Dose Route Start Last Admin Trade Name Freq PRN Reason Stop Dose Admin Acetaminophen 650 mg 10/10/24 09:29 10/10/24 10:16 Acetaminophen 325 Mg Tablet PO 11/08/24 18:28 650 mg Q6H PRN Administration Fever >100.1 Dextrose 50 ml 10/10/24 09:23 Dextrose 50%-Water Inj 50 Ml Syringe IV 11/09/24 09:22 Q15MIN PRN BG <50 OR BG <70 & pt unresponsive Enoxaparin Sodium 60 mg 10/09/24 21:00 10/10/24 10:17 Enoxaparin Sod Inj 60 Mg/0.6 Ml Syringe SC 10/23/24 20:59 60 mg BID CASSY Administration Glucagon 1 mg 10/10/24 09:23 Glucagon Inj 1 Mg Vial IM Q15MIN PRN BG <70, and no IV access Vancomycin HCl 1,000 mg/ 500 mls @ 172 mls/hr 10/10/24 10:00 10/10/24 10:45 Vancomycin HCl 750 mg/ Sodium IV 10/17/24 09:59 172 mls/hr Chloride Q12H CASSY Administration Piperacillin/Tazobactam/Dextrose 50 mls @ 12.5 mls/hr 10/10/24 06:00 10/10/24 05:10 Zosyn IV 10/17/24 05:59 12.5 mls/hr Q8HR CASSY Administration Insulin Human Lispro 0 unit 10/10/24 11:30 10/10/24 11:54 Insulin Lispro (Admelog) 1 Unit/0.01 Ml Unit SC 11/09/24 11:29 2 unit AC CASSY Administration Protocol Losartan Potassium 50 mg 10/10/24 09:30 10/10/24 10:15 Losartan Potassium 25 Mg Tablet PO 11/09/24 09:29 50 mg QDAY CASSY Administration Magnesium Hydroxide 30 ml 10/09/24 18:29 Milk Of Magnesia Susp 30 Ml Udc PO 11/08/24 18:28 QDAY PRN CONSTIPATION Protocol Morphine Sulfate 2 mg 10/10/24 11:29 Morphine Sulf Inj 10 Mg/Ml Vial IVP 10/15/24 11:28 Q4HR PRN PAIN SCALE 7-10 (Severe Ondansetron HCl 4 mg 10/09/24 18:29 Ondansetron Inj 2 Mg/Ml Inj 2 Ml IV 11/08/24 18:28 Q6H PRN NAUSEA OR VOMITING Protocol Oxycodone/Acetaminophen 1 tab 10/10/24 11:26 Oxycodone/Apap 5/325 Tablet PO 10/15/24 11:25 Q6HR PRN Pain 4-6 Pharmacy Consult 1 each 10/10/24 09:00 Vancomycin Pharmacy To Dose 1 Each Each IV 11/09/24 08:59 QDAY PRN PROTOCOL Plan Ms Heath is a 58-year-old female who is morbidly obese, history of hypertension on losartan and hydrochlorothiazide presented to the hospital with chief complaints of pain, swelling and redness of left lower extremity since 1 week and admitted in the hospital for sepsis secondary to left lower extremity cellulitis. 1. LT distal fibula osteomyelitis 2. LT lower extremity cellulitis 3. Leukocytosis - Came with complaint of lower extremity swelling, pain, redness x 5 days. Labs : WBC 20.7 -> 22.7 - ESR 93, CRP 28.3, Procal 0.72 - At admission : temperature 101 ?F, HR 150 bpm - On examination, tenderness, localized rise of temperature with induration is noted in left lower extremity extending up to the knee. Bilateral peripheral pulses are felt. - Patient fits into sepsis criteria = fever 101 ?F, WBC 20.7, pulse rate 150+ cellulitis - Foot x-ray LT LE: LT leg soft tissue swelling without signs of osteomyelitis. - CT of bilateral lower extremities: Extensive edema in the left lower extremity. Soft tissue defect lower leg adjacent to the distal fibula with periosteal new bone involving the fibula at this site consistent with early osteomyelitis. - Venous Doppler of B/L lower extremity: negative for DVT Plan: - C/n IV Vancomycin and Zosyn [10/09 - - PRN Acetaminophen q6H for fever >100.3 - Blood cultures sent, follow up results - Pain control: Tylenol (1-3) + Oxycodone 10/325 q4H (4-6) + IV Morphine 2 mg (7-10) - Consulted orthopedics Dr Lucia, pending recommendations 4. A.Fib w/ RVR, new onset 5. PE pending r/o 6. Primary hypertension - Patient is using losartan and hydrochlorothiazide combination - Home meds include losartan and hydrochlorothiazide combination - EKG: A. Fib with RVR , HR 140-160s - Type: New onset, paroxysmal - Intermittent episodes of palpitations with spontaneous return to sinus - CHADsVASc score = 4 ; 4.8% stroke risk annually - HASBLED score = 1 ; Low risk of major bleeding - Venous Doppler of B/L lower extremity: negative for DVT Plan: - Cardiology consulted, pending recommendations - Rate control: Diltiazem gtt 10 mg/hr (10/10 - - Anticoagulation: Lovenox 60 mg SC BID - CTA Chest ordered to r/o PE, patient is on therapeutic dose Lovenox at this time 7. Possible new onset CHF 8. Hypotonic Hyponatremia - improving - Likely due to decreased oral intake vs thiazide - Na 126 -> 134 , Osm 269 Plan: - Continue to HOLD Hydrochlorthiazide - Hold off on IVF - Received Lasix 40mg x2 since admission - ECHO ordered for further evaluation - Follow up urine sodium - Will consult cardiology if needed 9. T2 DM HbA1c = 6.9% on 10/10 Plan: Started on moderate SSI + Glargine 15 Units HS 10. Morbid Obesity 11. Obesity hypoventilation 12. Hx of smoking - BMI 66.6 , Wt 175.9 kg - Smoked for >20 pack years, quit 10 years ago Plan: - Patient will benefit from GLP1 therapy outpatient - Will need outpatient polysomnography for OHS eval and CPAP Hospital Maintenance: Dispo: MedSurg DVT ppx: Lovenox 60 Mg SC twice daily GI ppx: Not needed Diet: Regular IV lines: Peripheral Code status: Full code Plan of care discussed with attending Jordan Pastrana MD, PGY 2 Attending Provider Attestation/Addendum I have discussed and was present for the essential components of the history, physical examination, diagnosis, and treatment plan with the resident. I agree with the patient's care as documented by the resident and amended herein by me. Lauro Brewer DO.: Although this document has been carefully reviewed, there may still be some phonetic and other typographical errors. These errors are purely grammatical due to imperfections in the software program and should not be construed in any way to compromise the substance of the patient's medical care during this visit.
[2024-10-10 14:29] LABS: Potassium 3.7 mMol/L (3.4-5.1)
--- NOTE | 2024-10-10 15:52 | PC.SS ---
Rounding: Pending ID consult for cellulitis, on IV ABX
--- NOTE | 2024-10-10 18:22 | PC.NURSE ---
Pt just arrived to Tele unit to room 269 report received at bedside
[2024-10-10] MEDS: DILTIAZEM in D5W 125 MG 125 MG/125 ML BAG 10 MG IV (18:29)
[2024-10-10] MEDS: INSULIN GLARGINE (Lantus) 5 UNIT/0.05 ML (PER 5 UNITS) 10 UNIT SC (20:31)
--- NOTE | 2024-10-10 21:05 | ESCONSULT_ITS ---
HPI Consult details Reason for consultation narrative: Pain swelling left leg History of present illness: Patient is a 58-year-old who has had chronic lymphedema both lower extremities. She says her legs are like her mother's. She has had recurrent itching pruritus small ulcers both lower legs for quite some time. Approximately 5 days ago she developed pain in her left foot rapidly spreading to the left leg with marked increased swelling heat erythema Past Medical History Past Medical History NEUROLOGIC: Negative Neurological Disorders CARDIAC: Positive Cardiac Disorders (CHF), Congestive Heart Failure and Hypertension; Negative Hypercholesterolemia RESPIRATORY: Positive Asthma (SOB); Negative Respiratory Disorders or Chronic Obstructive Pulmonary Disease (COPD) GASTROINTESTINAL: Positive Gastrointestinal Disorders and Obesity; Negative Hepatitis GENITOURINARY: Negative Genitourinary Disorders or Renal Disease REPRODUCTIVE: Negative Pelvic Inflammatory Disease MUSCULOSKELETAL: Positive Musculoskeletal Disorders ENT: Negative History of ENT Problems ENDOCRINE: Negative Endocrine Disorders, Diabetes Mellitus Type 1 or Diabetes Mellitus Type 2 (pt denies h/x of diabetes) HEMATOLOGIC: Negative Blood Disorders or Sickle Cell Disease OTHER HISTORY: Negative Hospitalization, Autoimmune Disease, Down Syndrome, Developmental Delay, Shingles, Falls, Blood Transfusions, Blood Transfusion Reaction, Anesthesia Reactions, Organ Transplant, Chemotherapy, Radiation Therapy, Hyperbaric Therapy, MRSA, VRSA, Vancomycin-Resistant Enterococci, Human Immunodeficiency Virus (HIV), Chicken Pox, Measles, Mumps, Rubella ([place] Measles), Pertussis, Clostridium Difficile or Cancer Family History FAMILY HISTORY: Positive Family Cardiac Disorders and Family Endocrine Disorders; Negative Family Psychiatric Problems, Family Respiratory Disorders, Family Gastrointestinal Problems, Family Reproductive Disorders, Family Musculoskeletal Disorders, Family Cancer, Family Surgery or Family Anesthesia Reaction Surgical History SURGICAL: Negative Cardiac Surgery, Open Heart Surgery, Coronary Artery Bypass Graft, Valve Replacement, Vascular Surgery, Coronary Stent, Pacemaker, Angiogram, Auto Implanted Cardiovert Defib, Carotid Endarterectomy, Thyroidectomy, Ear Surgery, Abdominal Surgery, Nephrectomy, Joint Replacement, Neurologic Surgery, Brain Shunt, Mastectomy, Lumpectomy, Hysterectomy, Tubal Ligation, Section or Organ Transplant Social History SMOKING STATUS: Former smoker Meds Home Medications and Allergies Home Medications ?Medication ?Instructions ?Recorded ?Confirmed ?Type losartan 100 1 tab PO QDAY 10/09/24 10/09/24 History mg-hydrochlorothiazide 12.5 mg tablet Allergies Allergy/AdvReac Type Severity Reaction Status Date / Time No Known Allergies Allergy Verified 10/09/24 12:33 Exam Vital Signs Temp Pulse Resp BP Pulse Ox O2 Del Method O2 Flow Rate 97.6 F 122 H 23 H 94/74 98 Nasal Cannula 2 10/10/24 20:00 10/10/24 20:00 10/10/24 20:00 10/10/24 20:00 10/10/24 20:00 10/10/24 20:00 10/10/24 20:00 Temperature 97.6 pulse 122 Narrative Exam Patient is a very pleasant alert female who has extremely large legs present bilaterally. Marked edema present left lower extremity compared to right lower extremity with small superficial ulcers marked increase heat line of demarcation just below knee unable to feel pulses. Results - Ortho Labs 10/10/24 04:38 10/10/24 13:40 Labs: Short CBC 10/10/24 Range/Units 04:38 WBC 22.7 H (3.6-11.0) Thou/mm3 Hgb 12.1 (12.0-16.0) g/dL Hct 37.0 (36.0-46.0) % Plt Count 172 (140-440) Thou/mm3 BMP 10/10/24 10/10/24 04:38 13:40 Sodium 134 L Potassium 3.0 L D 3.7 D Chloride 97 L Carbon Dioxide 27.2 BUN 10 Creatinine 0.8 Glucose 128 H D Calcium 8.7 Liver Function 10/10/24 Range/Units 04:38 Total Bilirubin 0.9 (0.3-1.2) mg/dL AST 19 (0-34) U/L ALT 19 (10-49) U/L Alkaline Phosphatase 143 H (46-116) U/L Albumin 3.8 (3.5-5.0) gm/dL White count 22,000 Assessment & Plan Additional Assessment Additional comments: Severe cellulitis left lower extremity. Plan With this rapid advance I am concerned about strep. Will put in consult for Dr. Mcginnis, Dr. Bowman. Does have a dog at home. Family notes that every time they come over to see her she is itching and scratching. Both legs pruritic. I told him this could be a big deal. She has great blanca in [employer] and we prayed that he would give us wisdom. I told her we would get to other doctors involved. She does not have a family doctor. I asked her why she did not and she told me she goes to the emergency room or to walk-in clinics. I told her that after she is successfully through that she does need to get a family doctor.
[2024-10-10 22:06] LABS: Lactate (Lactic Acid) 1.2 mMol/L (0.4-2.0)
[2024-10-10] MEDS: oxyCODONE/APAP 5/325 TABLET 1 TAB PO (23:14)
[2024-10-11] VITALS (9 sets, daily range): BP systolic 120–141; BP diastolic 64–91; PULSE 74–104; RESP 16–24; TEMP 35.9–36.4; O2SAT 94–99; BMI 66.2
[2024-10-11] MEDS: DILTIAZEM in D5W 125 MG 125 MG/125 ML BAG 10 MG IV ×2 (05:06→17:43)
[2024-10-11] MEDS: PIPER/TAZO 3.375 GM 50 ML IV (05:12)
[2024-10-11 06:01] LABS: Basophils # (Auto) 0.1 Thou/mm3 (0.0-0.2); Basophils % (Auto) 0 % (0-2.5); Eosinophils # (Auto) 0.1 Thou/mm3 (0.0-0.5); Eosinophils % (Auto) 1 % (0-10); Hematocrit 37.3 % (36.0-46.0); Hemoglobin 11.7 g/dL (12.0-16.0); Immature Granulocytes % (Auto) 5 % (0-0); Immature Granulocytes Auto 1.02 Thou/mm3 (0.00-0.00); Lymphocytes % (Auto) 14 % (10-50); Mean Corpuscular HGB Conc 31.4 g/dl (31.0-37.0); Mean Corpuscular Hemoglobin 29.1 pg (25.0-35.0); Mean Corpuscular Volume 93 fL (80-100); Monocytes % (Auto) 5 % (0-12); Neutrophils # (Auto) 15.9 Thou/mm3 (1.8-7.7); Neutrophils % (Auto) 76 % (37-80); Nucleated Red Blood Cell % 0 /100 WBC (0); Platelet Count 248 Thou/mm3 (140-440); RDW Standard Deviation 46.2 fL (36.4-46.3); Red Blood Count 4.02 Miln/mm3 (4.00-5.20); White Blood Count 21.1 Thou/mm3 (3.6-11.0)
[2024-10-11 06:23] LABS: Alanine Aminotransferase 20 U/L (10-49); Albumin, Serum 3.5 gm/dL (3.5-5.0); Albumin/Globulin Ratio 1.1 (1.2-2.2); Alkaline Phosphatase 164 U/L (46-116); Anion Gap 6 (7-16); Aspartate Amino Transferase 15 U/L (0-34); BUN/Creatinine Ratio 18 Ratio (12-20); Bilirubin,Total 0.6 mg/dL (0.3-1.2); Blood Urea Nitrogen 14 mg/dL (9-23); Calcium 8.9 mg/dL (8.3-10.6); Calcium (Corrected) 9.3 mg/dL (8.5-10.1); Carbon Dioxide 30.1 mMol/L (20.0-31.0); Chloride 102 mMol/L (98-107); Creatinine (Component) 0.8 mg/dL (0.6-1.3); Estimated Creatinine Clearance 123.3 mL/min (>60); Globulin 3.1 gm/dL (2.3-3.5); Glucose 131 mg/dL (74-106); Osmolality,Calculated 278 (275-295); Potassium 3.8 mMol/L (3.4-5.1); Sodium 138 mMol/L (136-145); Total Protein 6.6 gm/dL (5.7-8.2); eGFR > 60 See Note
[2024-10-11] MEDS: INSULIN LISPRO (AdmeLOG) 1 UNIT/0.01 ML UNIT SC ×4 (07:41→21:28)
[2024-10-11] MEDS: FUROSEMIDE INJ 10 MG/ML 4ML VIAL 40 MG IVP (09:22)
[2024-10-11] MEDS: ENOXAPARIN SOD INJ 60 MG/0.6 ML SYRINGE SC ×2 (09:22→21:28)
--- NOTE | 2024-10-11 10:05 | PD.IDPROG ---
Subjective Subjective Interval history: asked to see. L leg cellulitis. edema. Exam Vital Signs Temp Pulse Resp BP Pulse Ox O2 Del Method O2 Flow Rate 97.5 F 86 18 128/84 96 Nasal Cannula 2 10/11/24 04:00 10/11/24 09:22 10/11/24 04:00 10/11/24 09:22 10/11/24 04:00 10/11/24 04:00 10/11/24 04:00 Narrative Exam lymphedema noted. on O2. newly started by staff no significant hypoxemia noted. Objective - Internal Medicine Labs 10/11/24 05:33 10/11/24 05:33 Labs: Laboratory Results - last 24 hr 10/10/24 10/10/24 10/11/24 13:40 21:40 05:33 WBC 21.1 H RBC 4.02 Hgb 11.7 L Hct 37.3 MCV 93 MCH 29.1 MCHC 31.4 RDW Std Deviation 46.2 Plt Count 248 D Neut % (Auto) 76 Lymph % (Auto) 14 [place] % (Auto) 5 Eos % (Auto) 1 Baso % (Auto) 0 Neut # (Auto) 15.9 H Lymph # (Auto) 3.0 [place] # (Auto) 1.0 H Eos # (Auto) 0.1 Baso # (Auto) 0.1 Immature Gran # (Auto) 1.02 H Absolute Nucleated RBC 0.00 Immature Gran % 5 H Nucleated RBC % 0 Sodium 138 Potassium 3.7 D 3.8 Chloride 102 Carbon Dioxide 30.1 Anion Gap 6 L BUN 14 Creatinine 0.8 Estim Creat Clear Calc 123.3 eGFR > 60 BUN/Creatinine Ratio 18 Glucose 131 H Calculated Osmolality 278 Lactic Acid 1.2 Calcium 8.9 Corrected Calcium 9.3 Total Bilirubin 0.6 AST 15 ALT 20 Alkaline Phosphatase 164 H D C-Reactive Prot, Quant 29.0 H Total Protein 6.6 Albumin 3.5 Globulin 3.1 Albumin/Globulin Ratio 1.1 L Assessment & Plan A&P Narrative L leg cellulitis hx of L leg surgery as a young woman hx of dm II, new hx of htn hx of lymphedema and obesity, BMI 66.2 noted control dm. use lymphedema prevention as best she can. support stockings bilaterally with athlete's foot cream to feet before stockings no rocephin 2 gm iv daily and po doxy 100 mg po bid for now. will check in again later this week. dx of osteo less clear as surgery on L leg was yrs ago. Time Spent With Patient Time: Total time spent is greater than 50% in coordination of care (as documented) at patient's floor/unit and/or counseling patient:
[2024-10-11 10:32] LABS: Vancomycin,Trough 13.6 mcg/mL (5.0-10.0)
--- NOTE | 2024-10-11 11:10 | ESCONSULT_ITS ---
HPI Data of Consult Requesting Physician: Clinton Brewer DO Admitting Provider: Marlen Hall DO Attending Provider: Clinton Brewer DO Primary Care Provider: Joe Upton MD Consult Narrative Reason for consult: A-fib with RVR and CHF exacerbation History of present illness: 58-year-old female with past medical history of essential hypertension, congestive heart failure, obesity, and chronic ulcers of lower extremities was admitted to hospital on 10/09/2024 due to sepsis likely secondary to left lower extremity cellulitis and A-fib with RVR. In ED patient came in with complaints of worsening left lower extremity swelling and redness for the last 3 days prior to admission. Initially patient was tachycardic, mildly hypertensive, and afebrile. Initial labs showed WBC 20.7, Hgb 12.7, sodium 128, potassium 3.8, chloride 96, BUN 13, creatinine 0.9, BNP 227, CRP 28.3, and procalcitonin 0.72. Initial imaging included left foot x-ray which showed soft tissue swelling, venous Doppler which was negative for any DVT, lower extremity CT which showed findings consistent with early osteomyelitis, chest x-ray which showed mild to moderate CHF. EKG which showed A-fib with RVR. During my assessment patient stated that her primary care physician with referred her to get a sleep study in October as well as a service learning coordinator referral in October. Patient stated that she has been short of breath since 3 years ago when she was diagnosed with COVID and since then she has been very short of breath. She also endorsed some orthopnea, palpitations, and lower extremity swelling on and off. Patient denies any chest pain at this time or any chest pain associated with the shortness of breath. Patient does not recall ever being told that she had A-fib. There is no echo on file as patient is new to our hospital. Patient was started on diltiazem drip. Cardiology was consulted due to A-fib with RVR and possible heart failure exacerbation. PMH: Essential hypertension, congestive heart failure, obesity, chronic ulcers of lower extremities FMH: Mother had an enlarged heart, father had bypass surgery Social Hx denies any drugs or alcohol, admits to smoking for 17 years and quit 20 years ago. 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 cc:: cc: Clinton Brewer, Review of Systems Review of Systems Narrative Review of Systems: Constitutional: Denies sweats, Denies weight loss/gain, Denies fever, Denies chills. HEENT: Denies hearing loss, Denies ear pain, Denies postnasal drip, Denies double vision, Denies blurry vision. Respiratory: Admits shortness of breath, Denies cough, Denies wheezing. Cardiovascular: Denies chest pain, Admits palpitations, Denies sudden loss of consciousness. GI: Denies blood in stool, Denies constipation, Denies abdominal pain, Denies difficulty swallowing, Denies nausea/vomit. : Denies urinary incontinence, Denies pain while urinating, Denies increased urinary frequency. MSK: Denies joint pain, Denies joint swelling, Denies numbness, Admits lower extremity swelling. Skin: Denies rash, Denies itching, Denies easy bruising. Neuro: Denies headaches, Denies dizziness, Denies seizures. Past Medical History Past Medical History Comments PMH COMMENT: PMH: Essential hypertension, congestive heart failure, obesity, chronic ulcers of lower extremities FMH: Mother had an enlarged heart, father had bypass surgery Social Hx denies any drugs or alcohol, admits to smoking for 17 years and quit 20 years ago. 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 Exam Vital Signs Temp Pulse Resp BP Pulse Ox O2 Del Method O2 Flow Rate 96.9 F 86 20 128/84 97 Nasal Cannula 2 10/11/24 08:00 10/11/24 09:22 10/11/24 08:00 10/11/24 09:22 10/11/24 08:00 10/11/24 08:00 10/11/24 08:00 Narrative Exam General: A/O x3, no acute distress, obese Eyes: PERRL, EOMI. Anicteric, vision grossly intact. Ears: No ear pain, no ear discharge, Hearing grossly intact. Nose: No nasal discharge. Mouth/Throat: Moist mucous membranes, no redness, no lesions. Neck: Neck supple, non-tender, no cervical lymphadenopathy. Lungs: Clear STEVE in upper lobes and decreased in Lower lobes likely due to body habitus, No accessory muscle use. Cardio: Normal S1/S2, regular rhythm, no murmurs, no JVD Abdomen: Soft, non-tender, no palpable masses, peristalsis present, no guarding or rebound. Extremities: Symmetrical, no significant deformities, 3+ peripheral edema , non-tender, peripheral pulses presents. Skin: No rashes, no lesions, warm to touch. multiple lesions in R and L LE. L LE swollen greater than R LE, L LE erythematous. Neuro: No focal neurological deficits. motor and sensory intact. Psych: Cooperative, appropriate mood and effect. Results Labs 10/11/24 05:33 10/11/24 05:33 Labs: Short CBC 10/11/24 Range/Units 05:33 WBC 21.1 H (3.6-11.0) Thou/mm3 Hgb 11.7 L (12.0-16.0) g/dL Hct 37.3 (36.0-46.0) % Plt Count 248 D (140-440) Thou/mm3 BMP 10/10/24 10/11/24 13:40 05:33 Sodium 138 Potassium 3.7 D 3.8 Chloride 102 Carbon Dioxide 30.1 BUN 14 Creatinine 0.8 Glucose 131 H Calcium 8.9 Liver Function 10/11/24 Range/Units 05:33 Total Bilirubin 0.6 (0.3-1.2) mg/dL AST 15 (0-34) U/L ALT 20 (10-49) U/L Alkaline Phosphatase 164 H D (46-116) U/L Albumin 3.5 (3.5-5.0) gm/dL Quality Measures Quality Measures none Medications Home Medications and Allergies Home Medications ?Medication ?Instructions ?Recorded ?Confirmed ?Type losartan 100 1 tab PO QDAY 10/09/24 10/09/24 History mg-hydrochlorothiazide 12.5 mg tablet Allergies Allergy/AdvReac Type Severity Reaction Status Date / Time No Known Allergies Allergy Verified 10/09/24 12:33 Visit Medications Acetaminophen (Acetaminophen 325 Mg Tablet) 650 mg PO Q6H PRN PRN Reason: Fever >100.1 Stop: 11/08/24 18:28 Last Admin: 10/10/24 10:16 Dose: 650 mg Dextrose (Dextrose 50%-Water Inj 50 Ml Syringe) 50 ml IV Q15MIN PRN PRN Reason: BG <50 OR BG <70 & pt unresponsive Stop: 11/09/24 09:22 Dextrose (Dextrose 50%-Water Inj 50 Ml Syringe) 50 ml IV Q15MIN PRN PRN Reason: BG <50 OR BG <70 & pt unresponsive Stop: 11/09/24 13:37 Enoxaparin Sodium (Enoxaparin Sod Inj 60 Mg/0.6 Ml Syringe) 60 mg SC BID [facility] Stop: 10/23/24 20:59 Last Admin: 10/11/24 09:22 Dose: 60 mg Glucagon (Glucagon Inj 1 Mg Vial) 1 mg IM Q15MIN PRN PRN Reason: BG <70, and no IV access Vancomycin HCl 1,000 mg/Vancomycin HCl 750 mg/ Sodium Chloride 500 mls @ 172 mls/hr IV Q12H [facility]; Protocol Stop: 10/17/24 09:59 Last Infusion: 10/11/24 01:30 Dose: Infused Piperacillin/Tazobactam/Dextrose (Zosyn) 50 mls @ 12.5 mls/hr IV Q8HR [facility] Stop: 10/17/24 05:59 Last Admin: 10/11/24 05:12 Dose: 12.5 mls/hr Diltiazem HCl (Diltiazem In D5w 125 Mg) 125 mg in 125 mls @ 10 mls/hr IV .[id number] [facility] Stop: 11/09/24 13:14 Last Admin: 10/11/24 05:06 Dose: 10 mg/hr, 10 mls/hr Insulin Glargine (Insulin Glargine (Lantus) 5 Unit/0.05 Ml (Per 5 Units)) 10 unit SC [facility] Stop: 11/09/24 20:59 Last Admin: 10/10/24 20:31 Dose: 10 unit Insulin Human Lispro (Insulin Lispro (Admelog) 1 Unit/0.01 Ml Unit) 0 unit SC [facility]; Protocol Stop: 11/09/24 16:59 Last Admin: 10/11/24 07:41 Dose: 2 unit Losartan Potassium (Losartan Potassium 25 Mg Tablet) 50 mg PO QDAY [facility] Stop: 11/09/24 09:29 Last Admin: 10/10/24 10:15 Dose: 50 mg Magnesium Hydroxide (Milk Of Magnesia Susp 30 Ml Udc) 30 ml PO QDAY PRN; Protocol PRN Reason: CONSTIPATION Stop: 11/08/24 18:28 Morphine Sulfate (Morphine Sulf Inj 10 Mg/Ml Vial) 2 mg IVP Q4HR PRN PRN Reason: PAIN SCALE 7-10 (Severe Stop: 10/15/24 11:28 Ondansetron HCl (Ondansetron Inj 2 Mg/Ml Inj 2 Ml) 4 mg IV Q6H PRN; Protocol PRN Reason: NAUSEA OR VOMITING Stop: 11/08/24 18:28 Oxycodone/Acetaminophen (Oxycodone/Apap 5/325 Tablet) 1 tab PO Q6HR PRN PRN Reason: Pain 4-6 Stop: 10/15/24 11:25 Last Admin: 10/10/24 23:14 Dose: 1 tab Pharmacy Consult (Vancomycin Pharmacy To Dose 1 Each Each) 1 each IV QDAY PRN PRN Reason: PROTOCOL Stop: 11/09/24 08:59 Discontinued Medications Acetaminophen (Acetaminophen 325 Mg Tablet) 650 mg PO Q6H PRN PRN Reason: Fever >101.5 Stop: 11/08/24 18:28 Last Admin: 10/09/24 19:45 Dose: 650 mg Furosemide (Furosemide Inj 10 Mg/Ml 4ml Vial) 40 mg IVP X1 ONE Stop: 10/09/24 15:02 Last Admin: 10/09/24 17:12 Dose: 40 mg Furosemide (Furosemide Inj 10 Mg/Ml 4ml Vial) 40 mg IVP X1 ONE Stop: 10/10/24 09:27 Last Admin: 10/10/24 10:16 Dose: 40 mg Furosemide (Furosemide Inj 10 Mg/Ml 4ml Vial) 40 mg IVP X1 ONE Stop: 10/11/24 08:43 Last Admin: 10/11/24 09:22 Dose: 40 mg Piperacillin/Tazobactam/Dextrose (Zosyn) 3.375 gm in 50 mls @ 100 mls/hr IV X1 ONE Stop: 10/09/24 15:31 Last Infusion: 10/09/24 19:22 Dose: Infused Vancomycin HCl 1,000 mg/ (Sodium Chloride) 250 mls @ 150 mls/hr IV X1 ONE Stop: 10/09/24 18:48 Last Admin: 10/09/24 19:25 Dose: Not Given Vancomycin HCl 2,000 mg/ (Sodium Chloride) 500 mls @ 150 mls/hr IV X1 ONE Stop: 10/09/24 21:04 Last Admin: 10/09/24 20:06 Dose: 10 mg/min, 150 mls/hr Sodium Chloride (Ns) 1,000 mls @ 125 mls/hr IV .Q8H [facility] Stop: 11/08/24 19:07 Last Admin: 10/09/24 19:22 Dose: Not Given Sodium Chloride (Ns) 1,000 mls @ 100 mls/hr IV .Q10H ONE Stop: 10/10/24 06:02 Last Infusion: 10/11/24 01:31 Dose: Infused Sodium Chloride (Ns) 500 mls @ 999 mls/hr IV .Q31M ONE Stop: 10/10/24 03:59 Last Infusion: 10/11/24 01:31 Dose: Infused Magnesium Sulfate (Magnesium Sulfate Ivpb) 2 gm in 50 mls @ 25 mls/hr IV X1 ONE Stop: 10/10/24 11:26 Last Infusion: 10/11/24 01:31 Dose: Infused Insulin Human Lispro (Insulin Lispro (Admelog) 1 Unit/0.01 Ml Unit) 0 unit SC AC [facility]; Protocol Stop: 11/09/24 11:29 Last Admin: 10/10/24 11:54 Dose: 2 unit Potassium Chloride (Potassium Chloride 20 Meq Tabcr) 40 meq PO X1 ONE Stop: 10/10/24 09:23 Last Admin: 10/10/24 10:15 Dose: 40 meq Potassium Chloride (Potassium Chloride 20 Meq Tabcr) 20 meq PO X1 ONE Stop: 10/10/24 11:31 Last Admin: 10/10/24 11:54 Dose: 20 meq Assessment & Plan Plan 58-year-old female with past medical history of essential hypertension, congestive heart failure, obesity, and chronic ulcers of lower extremities was admitted to hospital on 10/09/2024 due to sepsis likely secondary to left lower extremity cellulitis and A-fib with RVR. 1. A-fib with RVR ?Patient stated that she has been having some palpitations as of recently ? EKG showed A-fib with RVR ?[id number] score of 4 points indicating 4.8% risk of stroke per year. ?HAS-BLED score of 0, relatively low risk of major bleeding Plan: ?Recommend repeat EKG ?Recommend to start patient on metoprolol XL 100 mg daily if blood pressure allows and stop diltiazem drip 2 hours after starting metoprolol XL. ?Recommend to start patient on Eliquis 5 mg twice daily ?Recommend to keep potassium and magnesium above 4 and 2 respectively to avoid any further arrhythmias 2. Acute decompensated heart failure exacerbation? 3. Essential hypertension ?Patient has been experiencing shortness of breath, orthopnea, and lower extremity swelling ? Patient does have a history of CHF, but there is no echo on file as patient is new to the hospital ?BNP was 227 on admission Plan: ?Will hold off on diuresis for now until echo is back as patient is septic ?Will follow-up on echo ordered ? Strict ROBERTO's ? Low-sodium diet ? Daily weights ? Fluid restrictions ?Recommend to keep potassium and magnesium above 4 and 2 respectively to avoid any further arrhythmias 4. Sepsis likely secondary to left lower extremity cellulitis versus osteomyelitis ? Continue current management as per primary care team 5. DM2, newly diagnosed ? Continue current management as per primary care team 6. Hyponatremia ? Continue current management as per primary care team Continue rest of management as per primary team. We are grateful to be able to participate in Mrs. Heath's care. Thank you for the consult Plan of care discussed with attending Vice President Quality Improvement, Dr Sophie Mckeon MD PGY-1 Attending Provider Attestation/Addendum I have personally seen and examined the patient separately on the above date of service and discussed the plan of care with the resident. I reviewed the resident Dr. South consultation progress note and agree with the resident findings and plan in the note above and have also edited the documentation to reflect my findings and plan. 58-year-old female with morbid obesity with BMI greater than 66, chronic bilateral leg swelling with possible lymphedema along with chronic ulcers of bilateral lower extremities with active ulcers of the left foot now, history of congestive heart failure, questionable sleep apnea, history of COVID in 2021 presented to the emergency department for further evaluation of bilateral leg swelling along with redness of her left leg and also was found to be in atrial fibrillation with RVR. Patient does have atrial fibrillation with RVR on admission and was started on diltiazem drip. The rate is well-controlled 10 mg/h and recommend to start multiple XL 100 mg and stop the diltiazem drip in 2 hours after that. Continue Brilinta for anticoagulation and patient should be placed on Xarelto for anticoagulation as outpatient rather than Eliquis given weight is greater than 150 kg if no further procedures are planned. Recommend to repeat EKG to reevaluate the rhythm. Patient explained the need to lose weight as obesity is an independent risk factor for the atrial fibrillation Patient also presented with bilateral leg swelling and some shortness of breath which has been chronic. BNP was elevated at 226 and also patient has congestion noted on the CTA with possible CHF pattern. Recommend to continue diuresis with IV Lasix for now if blood pressure permissible. Strict input of recommend elevation and 2 g odium diet. Echocardiogram ordered to evaluate LV function RV function as well as diastolic function. Of note patient has already been ordered for a sleep test to rule out any sleep apnea and also has service learning coordinator appointment for next month in October and recommended to make sure to follow-up with cardiology for her A-fib as well as her CHF. Patient does have left lower extremity with small skin breaks or wounds and with left leg redness noted. CT of the lower leg was done which showed possible osteomyelitis of the fibula. Patient has WBC elevated and primary team started patient on IV antibiotics and further workup as per the primary team. 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 Luis Barrios M.D. Interventional Cardiology
[2024-10-11] MEDS: Vancomycin Inj 1,000 MG, Vancomycin Inj 750 MG in SODIUM CHLORIDE 0.9% 500 ML 500 ML 172 MG IV ×2 (11:46→22:56)
[2024-10-11] MEDS: oxyCODONE/APAP 5/325 TABLET 1 TAB PO (12:01)
[2024-10-11] MEDS: Milk Of Magnesia Susp 30 ML UDC PO (12:01)
--- NOTE | 2024-10-11 13:14 | ESCONSULT_ITS ---
RE: SARI TRUONG : 1965 DATE OF CONSULTATION: 10/11/2024 REFERRING PHYSICIAN: Clinton Brewer DO REASON FOR CONSULTATION: Cellulitis left leg and newly discovered diabetic who is heavyset. HISTORY OF PRESENT ILLNESS: The patient is a 58-year-old woman who does not have a primary. She plans to see the resident doctor who saw her in the ER, but that will only be temporary as those people usually move on. Her medical problems include newly discovered diabetes, hypertension, and denies other health problems. Her A1c is 6.9 on admission despite taking no medications other than losartan and hydrochlorothiazide for her hypertension. She has chronic lower extremity edema. She had surgery on her left leg as a child where her fibula was removed. It is described by radiology as having osteomyelitis in it, but it is really more of a cellulitis at this point, but it is not that impressive. She had a much red left leg according to family previously. She is rather heavyset at 58 years of age and 387 pounds with a BMI of 66.2. She is 5 feet 4 inches tall. ALLERGIES: VARIOUS TOPICAL TREATMENTS. IMMUNIZATIONS: Last tetanus is unknown. 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 She does not take flu shot every year, does not have COVID vaccination, does not have pneumococcal vaccines. FAMILY HISTORY: Positive for diabetes, hypertension, heart disease, or cancer. SOCIAL HISTORY: She lives alone. She is a director business systems, quit smoking 21 to 27 years ago and works as a director business systems. She also works at the [employer], she may be a director business systems for the [employer]. PHYSICAL EXAMINATION: The patient has mildly red left leg. There is no sinus tract draining from the prior surgery of the fibula, which usually would be at this point in time. Her labs are as noted. There looks more likely resolving cellulitis at this point in time. ASSESSMENT: 1. Cellulitis, left lower extremity. 2. Morbid obesity. 3. Diabetes, newly discovered. RECOMMENDATIONS: The patient may have diabetes more familial because it does run in the family and her left leg surgery as a child would tend to result in a sinus tract rather than a cellulitis. I am going to repeat her CRP tomorrow noting that it went up from 28 to 29 from the 14th to the 15th, but tomorrow would be the 17th if it is down sharply to single digits or less, then we are probably on the right track. In the meantime, therapy can be changed from vancomycin and Zosyn to a more typical approach of Rocephin 2 g a day and doxycycline 100 mg twice a day. Vancomycin and Zosyn is oddly more nephrotoxic than vancomycin alone, so not recommended for more than a couple of days, so I will try to get her off that as soon as she can. I will check on her superficially on Friday. DT: 10:: TT: 12:20:00 Ref: [id number] - TID: [id number] MTDD
--- NOTE | 2024-10-11 13:30 | ESCONSULT_ITS ---
<Statement entered by Eliseo Mcginnis MD - 10/13/24 09:30> pt seen with resident. all findings confirmed, see additional notes for details HPI Data of Consult Requesting Physician: Clinton Brewer DO Admitting Provider: Marlen Hall DO Attending Provider: Clinton Brewer DO Primary Care Provider: Joe Upton MD Consult Narrative Reason for consult: Left leg cellulitis History of present illness: Patient is a 58 year old female with history of morbid obesity and hypertension who presented to the ED with concerns of swelling and redness of left lower extremity for 1 week, was found to have leukocytosis of 20.7, CRP 28.3, and lactate 1.6, was admitted for sepsis secondary to left leg cellulitis. Left lower extremity CT was completed, revealing soft tissue defect adjacent to distal fibula with periosteal new bone involving the fibula consistent with early osteomyelitis. Given these findings and cellulitis, infectious disease team was consulted. Patient examined bedside, does not appear to be in acute distress but does endorse occasional chills that began roughly 1 week prior. Since admission, patient does report feeling better, endorsing improvement to the left leg erythema after undergoing antibiotic treatment. Patient endorses history of surgery to her left leg around age 1 following a fracture, also endorses chronic lower extremity edema but does not follow with a primary care provider stating she will go to urgent clinics when needed. PMH: morbid obesity, hypertension FH: T2DM, hypertension Social hx: Denies tobacco, alcohol, or illicit drug use. History of ~8 pack year history, quit 20+ years ago. 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 Last tetanus shot 15+ years, unsure of date. cc:: cc: Clinton Brewer DO Review of Systems Review of Systems Narrative Review of Systems: GENERAL: Denies fevers/chills or diaphoresis. HEENT: Denies headache or visual/hearing changes NEURO: Denies unusual weakness or difficulty speaking. CARDIO: Denies chest pain or palpitations. PULM: Denies SOB, coughing, or wheezing. GI: Denies abdominal pain, nausea, vomiting, diarrhea MSK/EXT/SKIN: Endorses mild pain on left leg Past Medical History Past Medical History Comments PMH COMMENT: PMH: morbid obesity, hypertension FH: T2DM, hypertension Social hx: Denies tobacco, alcohol, or illicit drug use. History of ~8 pack year history, quit 20+ years ago. 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 Last tetanus shot 15+ years, unsure of date. Exam Vital Signs Temp Pulse Resp BP Pulse Ox O2 Del Method O2 Flow Rate 96.9 F 86 20 128/84 97 Nasal Cannula 2 10/11/24 08:00 10/11/24 09:22 10/11/24 08:00 10/11/24 09:22 10/11/24 08:00 10/11/24 08:00 10/11/24 08:00 Narrative Exam General: AOx3, cooperative, morbidly obese HEENT: Atraumatic/normocephalic, TOYA, neck supple without masses Heart: RRR, S1 and S2 without clicks or murmurs Lungs: Clear on auscultation bilaterally Abdomen: Soft, nontender. Skin: Left leg more warm than right. Crusted lesions more present on left leg compared to right, erythema improved compared to pen margin markings, erythema noted on left foot dorsal region. Neuro: No focal neurological deficits noted Results Labs 10/11/24 05:33 10/11/24 05:33 Labs: Short CBC 10/11/24 Range/Units 05:33 WBC 21.1 H (3.6-11.0) Thou/mm3 Hgb 11.7 L (12.0-16.0) g/dL Hct 37.3 (36.0-46.0) % Plt Count 248 D (140-440) Thou/mm3 BMP 10/10/24 10/11/24 13:40 05:33 Sodium 138 Potassium 3.7 D 3.8 Chloride 102 Carbon Dioxide 30.1 BUN 14 Creatinine 0.8 Glucose 131 H Calcium 8.9 Liver Function 10/11/24 Range/Units 05:33 Total Bilirubin 0.6 (0.3-1.2) mg/dL AST 15 (0-34) U/L ALT 20 (10-49) U/L Alkaline Phosphatase 164 H D (46-116) U/L Albumin 3.5 (3.5-5.0) gm/dL Quality Measures Quality Measures VTE prophylaxis (Lovenox) Medications Home Medications and Allergies Home Medications ?Medication ?Instructions ?Recorded ?Confirmed ?Type losartan 100 1 tab PO QDAY 10/09/24 10/09/24 History mg-hydrochlorothiazide 12.5 mg tablet Allergies Allergy/AdvReac Type Severity Reaction Status Date / Time No Known Allergies Allergy Verified 10/09/24 12:33 Visit Medications Acetaminophen (Acetaminophen 325 Mg Tablet) 650 mg PO Q6H PRN PRN Reason: Fever >100.1 Stop: 11/08/24 18:28 Last Admin: 10/10/24 10:16 Dose: 650 mg Dextrose (Dextrose 50%-Water Inj 50 Ml Syringe) 50 ml IV Q15MIN PRN PRN Reason: BG <50 OR BG <70 & pt unresponsive Stop: 11/09/24 09:22 Dextrose (Dextrose 50%-Water Inj 50 Ml Syringe) 50 ml IV Q15MIN PRN PRN Reason: BG <50 OR BG <70 & pt unresponsive Stop: 11/09/24 13:37 Enoxaparin Sodium (Enoxaparin Sod Inj 60 Mg/0.6 Ml Syringe) 60 mg SC BID [facility] Stop: 10/23/24 20:59 Last Admin: 10/11/24 09:22 Dose: 60 mg Glucagon (Glucagon Inj 1 Mg Vial) 1 mg IM Q15MIN PRN PRN Reason: BG <70, and no IV access Vancomycin HCl 1,000 mg/Vancomycin HCl 750 mg/ Sodium Chloride 500 mls @ 172 mls/hr IV Q12H [facility]; Protocol Stop: 10/17/24 09:59 Last Admin: 10/11/24 11:46 Dose: 172 mls/hr Piperacillin/Tazobactam/Dextrose (Zosyn) 50 mls @ 12.5 mls/hr IV Q8HR [facility] Stop: 10/17/24 05:59 Last Admin: 10/11/24 05:12 Dose: 12.5 mls/hr Diltiazem HCl (Diltiazem In D5w 125 Mg) 125 mg in 125 mls @ 10 mls/hr IV .[id number] [facility] Stop: 11/09/24 13:14 Last Admin: 10/11/24 05:06 Dose: 10 mg/hr, 10 mls/hr Insulin Glargine (Insulin Glargine (Lantus) 5 Unit/0.05 Ml (Per 5 Units)) 10 unit SC HS [facility] Stop: 11/09/24 20:59 Last Admin: 10/10/24 20:31 Dose: 10 unit Insulin Human Lispro (Insulin Lispro (Admelog) 1 Unit/0.01 Ml Unit) 0 unit SC ACHS [facility]; Protocol Stop: 11/09/24 16:59 Last Admin: 10/11/24 11:46 Dose: 2 unit Losartan Potassium (Losartan Potassium 25 Mg Tablet) 50 mg PO QDAY [facility] Stop: 11/09/24 09:29 Last Admin: 10/10/24 10:15 Dose: 50 mg Magnesium Hydroxide (Milk Of Magnesia Susp 30 Ml Udc) 30 ml PO QDAY PRN; Protocol PRN Reason: CONSTIPATION Stop: 11/08/24 18:28 Last Admin: 10/11/24 12:01 Dose: 30 ml Morphine Sulfate (Morphine Sulf Inj 10 Mg/Ml Vial) 2 mg IVP Q4HR PRN PRN Reason: PAIN SCALE 7-10 (Severe Stop: 10/15/24 11:28 Ondansetron HCl (Ondansetron Inj 2 Mg/Ml Inj 2 Ml) 4 mg IV Q6H PRN; Protocol PRN Reason: NAUSEA OR VOMITING Stop: 11/08/24 18:28 Oxycodone/Acetaminophen (Oxycodone/Apap 5/325 Tablet) 1 tab PO Q6HR PRN PRN Reason: Pain 4-6 Stop: 10/15/24 11:25 Last Admin: 10/11/24 12:01 Dose: 1 tab Pharmacy Consult (Vancomycin Pharmacy To Dose 1 Each Each) 1 each IV QDAY PRN PRN Reason: PROTOCOL Stop: 11/09/24 08:59 Discontinued Medications Acetaminophen (Acetaminophen 325 Mg Tablet) 650 mg PO Q6H PRN PRN Reason: Fever >101.5 Stop: 11/08/24 18:28 Last Admin: 10/09/24 19:45 Dose: 650 mg Furosemide (Furosemide Inj 10 Mg/Ml 4ml Vial) 40 mg IVP X1 ONE Stop: 10/09/24 15:02 Last Admin: 10/09/24 17:12 Dose: 40 mg Furosemide (Furosemide Inj 10 Mg/Ml 4ml Vial) 40 mg IVP X1 ONE Stop: 10/10/24 09:27 Last Admin: 10/10/24 10:16 Dose: 40 mg Furosemide (Furosemide Inj 10 Mg/Ml 4ml Vial) 40 mg IVP X1 ONE Stop: 10/11/24 08:43 Last Admin: 10/11/24 09:22 Dose: 40 mg Piperacillin/Tazobactam/Dextrose (Zosyn) 3.375 gm in 50 mls @ 100 mls/hr IV X1 ONE Stop: 10/09/24 15:31 Last Infusion: 10/09/24 19:22 Dose: Infused Vancomycin HCl 1,000 mg/ (Sodium Chloride) 250 mls @ 150 mls/hr IV X1 ONE Stop: 10/09/24 18:48 Last Admin: 10/09/24 19:25 Dose: Not Given Vancomycin HCl 2,000 mg/ (Sodium Chloride) 500 mls @ 150 mls/hr IV X1 ONE Stop: 10/09/24 21:04 Last Admin: 10/09/24 20:06 Dose: 10 mg/min, 150 mls/hr Sodium Chloride (Ns) 1,000 mls @ 125 mls/hr IV .Q8H [facility] Stop: 11/08/24 19:07 Last Admin: 10/09/24 19:22 Dose: Not Given Sodium Chloride (Ns) 1,000 mls @ 100 mls/hr IV .Q10H ONE Stop: 10/10/24 06:02 Last Infusion: 10/11/24 01:31 Dose: Infused Sodium Chloride (Ns) 500 mls @ 999 mls/hr IV .Q31M ONE Stop: 10/10/24 03:59 Last Infusion: 10/11/24 01:31 Dose: Infused Magnesium Sulfate (Magnesium Sulfate Ivpb) 2 gm in 50 mls @ 25 mls/hr IV X1 ONE Stop: 10/10/24 11:26 Last Infusion: 10/11/24 01:31 Dose: Infused Insulin Human Lispro (Insulin Lispro (Admelog) 1 Unit/0.01 Ml Unit) 0 unit SC [facility]; Protocol Stop: 11/09/24 11:29 Last Admin: 10/10/24 11:54 Dose: 2 unit Potassium Chloride (Potassium Chloride 20 Meq Tabcr) 40 meq PO X1 ONE Stop: 10/10/24 09:23 Last Admin: 10/10/24 10:15 Dose: 40 meq Potassium Chloride (Potassium Chloride 20 Meq Tabcr) 20 meq PO X1 ONE Stop: 10/10/24 11:31 Last Admin: 10/10/24 11:54 Dose: 20 meq Assessment & Plan Plan Patient is a 58 year old female with history of morbid obesity and hypertension who presented to the ED with concerns of swelling and redness of left lower extremity for 1 week, was found to have leukocytosis of 20.7, CRP 28.3, and lactate 1.6, was admitted for sepsis secondary to left leg cellulitis. Left lower extremity CT was completed, revealing soft tissue defect adjacent to distal fibula with periosteal new bone involving the fibula consistent with early osteomyelitis. Given these findings and cellulitis, infectious disease team was consulted. Patient examined bedside, does not appear to be in acute distress but does endorse occasional chills that began roughly 1 week prior. Since admission, patient does report feeling better, endorsing improvement to the left leg erythema after undergoing antibiotic treatment. Patient endorses history of surgery to her left leg around age 1 following a fracture, also endorses chronic lower extremity edema but does not follow with a primary care provider stating she will go to urgent clinics when needed. #Left lower extremity cellulitis #Soft tissue defect #New-onset Diabetes Mellitus #History of morbid obesity and lymphedema - Left lower extremity CT: soft tissue defect adjacent to distal fibula with periosteal new bone involving the fibula consistent with early osteomyelitis - IV Vancomyzin and IV zoysn (10/09 - present) - Blood cultures negative on 24 hour prelminary read (10/09) - ESR 93 and CRP 28.3 (10/09) - A1c 6.9 Plan: - Imaging reviewed, soft tissue defect appears to be more consistent with cellulitis, possibly related to history of surgery on left lower extremity - Repeat CRP for 10/12 - Advise stopping vancomycin/zosyn and starting IV rocephin 2g qday with PO doxycycline 100mg BID - HIV and hepatitis panel ordered - Advise support stockings bilaterally with athletes foot cream - Advise close diabetes mellitus management #Atrial fibrillation with RvR #Primary hypertension #T2 Diabetes mellitus #Hx of morbid obesity - Management per primary team Patient case discussed with attending physician Dr. Rahel Padilla, DO PGY-3
[2024-10-11] MEDS: DOXYCYCLINE 100 MG TABLET PO (14:26)
--- NOTE | 2024-10-11 15:43 | ESPR_ITS ---
<Statement entered by Akanksha Junior MD - 10/11/24 20:16> Patient was seen and examined by me personally. I agree with most of the assessment and plan as discussed with the music intern physician, and my attending, Dr. Emmanuel. Vitals, labs reviewed. WBC mildly decreased; FBG acceptable on lantus/SSI. ID recs appreciated, patient currently on rocephin & doxycycline. May need PICC for buttermaker continuous churn abx on DC. MRI foot pending. Ortho, Gen Surg consulted for osteomyelitis, appreciate recs. Patient remains in a fib although RVR resolved while on diltiazem drip. Will discuss with cardiology on possibly changing to p.o. Akanksha Junior MD, PGY-3 Documentation for date of: 10/11/24 Subjective Subjective Interval history: Patient was seen and examined bedside. Reported that her pain and swelling of left lower extremity is declining. Continued on diltiazem drip for A-fib. [id number] score is 3 Dr Mcginnis was consulted and recommended ceftriaxone 2 g IV once daily and doxycycline 100 Mg twice daily MRI was ordered Exam Vital Signs Temp Pulse Resp BP Pulse Ox O2 Del Method O2 Flow Rate 96.7 F L 96 24 H 141/91 H 95 Nasal Cannula 2 10/11/24 12:00 10/11/24 12:00 10/11/24 12:00 10/11/24 12:00 10/11/24 12:00 10/11/24 12:00 10/11/24 12:00 Narrative Exam General: Awake. Morbidly obese HEENT: Normocephalic, atraumatic, mucous membranes moist. Heart: Regular rate and rhythm, no murmurs. Lungs: Clear to auscultation with no wheezing or crackles. Abdomen: Soft, nondistended, nontender, positive bowel sounds. ?No guarding or rebound tenderness. Neurologic: Alert and oriented x3, no gross neurological deficit, and patient able to move all 4 extremities. Extremities: Swelling and erythema decreased from the time of admission on left lower extremity. Multiple ulcers noted on bilateral lower extremity Skin: No rash or ecchymoses. Objective Labs 10/12/24 05:39 10/12/24 05:39 Labs: Laboratory Results - last 24 hr 10/10/24 10/11/24 10/11/24 21:40 05:33 09:11 WBC 21.1 H RBC 4.02 Hgb 11.7 L Hct 37.3 MCV 93 MCH 29.1 MCHC 31.4 RDW Std Deviation 46.2 Plt Count 248 D Neut % (Auto) 76 Lymph % (Auto) 14 [place] % (Auto) 5 Eos % (Auto) 1 Baso % (Auto) 0 Neut # (Auto) 15.9 H Lymph # (Auto) 3.0 [place] # (Auto) 1.0 H Eos # (Auto) 0.1 Baso # (Auto) 0.1 Immature Gran # (Auto) 1.02 H Absolute Nucleated RBC 0.00 Immature Gran % 5 H Nucleated RBC % 0 Sodium 138 Potassium 3.8 Chloride 102 Carbon Dioxide 30.1 Anion Gap 6 L BUN 14 Creatinine 0.8 Estim Creat Clear Calc 123.3 eGFR > 60 BUN/Creatinine Ratio 18 Glucose 131 H Calculated Osmolality 278 Lactic Acid 1.2 Calcium 8.9 Corrected Calcium 9.3 Total Bilirubin 0.6 AST 15 ALT 20 Alkaline Phosphatase 164 H D C-Reactive Prot, Quant 29.0 H Total Protein 6.6 Albumin 3.5 Globulin 3.1 Albumin/Globulin Ratio 1.1 L Vancomycin Trough 13.6 H Quality Measures Quality Measures VTE prophylaxis (Lovenox) Assessment & Plan Assessment Current Active Medications: Generic Name Dose Route Start Last Admin Trade Name Freq PRN Reason Stop Dose Admin Acetaminophen 650 mg 10/10/24 09:29 10/10/24 10:16 Acetaminophen 325 Mg Tablet PO 11/08/24 18:28 650 mg Q6H PRN Administration Fever >100.1 Dextrose 50 ml 10/10/24 09:23 Dextrose 50%-Water Inj 50 Ml Syringe IV 11/09/24 09:22 Q15MIN PRN BG <50 OR BG <70 & pt unresponsive Dextrose 50 ml 10/10/24 13:38 Dextrose 50%-Water Inj 50 Ml Syringe IV 11/09/24 13:37 Q15MIN PRN BG <50 OR BG <70 & pt unresponsive Doxycycline Hyclate 100 mg 10/11/24 14:15 10/11/24 14:26 Doxycycline 100 Mg Tablet PO 10/18/24 14:14 100 mg BID [facility] Administration Enoxaparin Sodium 60 mg 10/09/24 21:00 10/11/24 09:22 Enoxaparin Sod Inj 60 Mg/0.6 Ml Syringe SC 10/23/24 20:59 60 mg BID [facility] Administration Glucagon 1 mg 10/10/24 13:38 Glucagon Inj 1 Mg Vial IM Q15MIN PRN BG <70, and no IV access Vancomycin HCl 1,000 mg/ 500 mls @ 172 mls/hr 10/10/24 10:00 10/11/24 11:46 Vancomycin HCl 750 mg/ Sodium IV 10/17/24 09:59 172 mls/hr Chloride Q12H [facility] Administration Protocol Diltiazem HCl 125 mg in 125 mls @ 10 mls/hr 10/10/24 13:15 10/11/24 05:06 Diltiazem In D5w 125 Mg IV 11/09/24 13:14 10 mg/hr .[id number] [facility] 10 mls/hr Administration 10 MG/HR Ceftriaxone Sodium 2 gm/ 50 mls @ 100 mls/hr 10/11/24 21:00 Sodium Chloride IV 10/18/24 20:59 Q12HR [facility] Insulin Glargine 10 unit 10/10/24 21:00 10/10/24 20:31 Insulin Glargine (Lantus) 5 Unit/0.05 Ml (Per 5 Units) SC 11/09/24 20:59 10 unit HS [facility] Administration Insulin Human Lispro 0 unit 10/10/24 17:00 10/11/24 11:46 Insulin Lispro (Admelog) 1 Unit/0.01 Ml Unit SC 11/09/24 16:59 2 unit ACHS [facility] Administration Protocol Losartan Potassium 50 mg 10/10/24 09:30 10/10/24 10:15 Losartan Potassium 25 Mg Tablet PO 11/09/24 09:29 50 mg QDAY [facility] Administration Magnesium Hydroxide 30 ml 10/09/24 18:29 10/11/24 12:01 Milk Of Magnesia Susp 30 Ml Udc PO 11/08/24 18:28 30 ml QDAY PRN Administration CONSTIPATION Protocol Morphine Sulfate 2 mg 10/10/24 11:29 Morphine Sulf Inj 10 Mg/Ml Vial IVP 10/15/24 11:28 Q4HR PRN PAIN SCALE 7-10 (Severe Ondansetron HCl 4 mg 10/09/24 18:29 Ondansetron Inj 2 Mg/Ml Inj 2 Ml IV 11/08/24 18:28 Q6H PRN NAUSEA OR VOMITING Protocol Oxycodone/Acetaminophen 1 tab 10/10/24 11:26 10/11/24 12:01 Oxycodone/Apap 5/325 Tablet PO 10/15/24 11:25 1 tab Q6HR PRN Administration Pain 4-6 Plan A 58-year-old female who is morbidly obese, history of hypertension on losartan and hydrochlorothiazide presented to the hospital with chief complaints of pain, swelling and redness of left lower extremity since 1 week and admitted in the hospital for sepsis secondary to left lower extremity cellulitis. # Sepsis, resolved # Secondary to left lower extremity cellulitis # To rule out Osteomyelitis # Leukocytosis -Came with complaint of lower extremity swelling, pain, redness since 5 days. -At the time of admission patient is found to have a temperature of 101 ?F, blood pressure 156/106 mmHg, pulse rate 150 bpm. SpO2 97% with room air -On examination, tenderness, localized rise of temperature with induration is noted in left lower extremity extending up to the knee. -Bilateral peripheral pulses are felt. -Labs showed WBC 20.7, ESR 93, CRP 28.3. Procalcitonin is 0.72 -Patient fits into sepsis criteria = fever 101 ?F, WBC 20.7, pulse rate 150+ cellulitis -Venous Doppler of bilateral lower extremity is negative for DVT -Foot x-ray showed soft tissue swelling without signs of osteomyelitis. -CT of bilateral lower extremity -Soft tissue defect lower leg adjacent to the distal fibula with periosteal new bone involving the fibula at this site consistent with early osteomyelitis -Blood cultures -no growth after 24 hours Plan -Vancomycin and zosyn is started [10/09 - 10/10] -Dr Mcginnis was consulted and recommended ceftriaxone 2 g IV daily and doxycycline 100 Mg twice daily instead of Vanco and Zosyn -Acetaminophen as needed is added -Dr. Lucia was consulted and recommended no surgery as of now in view of current patient condition -Dr. Bowman was consulted and will appreciate her recommendations. # New onset atrial fibrillation with rapid ventricular rate -- NSR #? New onset CHF -Presented with bilateral lower extremity swelling and shortness of breath for over months from now -Chest x-ray showed bilateral moderate vascular congestion with CHF pattern -[id number] score is 4 Plan -Patient was started on diltiazem drip -Consulted cardiology and appreciate recommendations. # Newly diagnosed diabetes mellitus -HbA1c is 6.9 -Started on insulin sliding scale -Hypoglycemia protocol in place # Hyponatremia, resolved Likely due to decreased oral intake vs thiazide -Sodium at the time of admission is 128 and osmolality is 263 -Patient is using losartan and hydrochlorothiazide combination. -Patient appears euvolemic as of now -Sodium levels are within normal limits after the hospital admission -Stopped Hydrochlorthiazide -Will continue to monitor electrolytes and replete accordingly. # History of hypertension -Patient is using losartan and hydrochlorothiazide combination -Will monitor blood pressures for now and add medications as needed Hospital Maintenance: Dispo: tele DVT ppx: Lovenox 60 Mg subcutaneous twice daily in view of high BMI GI ppx: Not needed Diet: low carb consistent IV lines: Peripheral Code status: Full code Patient plan of care was discussed with the attending physician, Dr. Emmanuel and senior resident Dr. Sandi Zamudio, PGY1 Attending Provider Attestation/Addendum I reviewed labs, imaging, EKG, home medications and prior available records. Face to face evaluation was performed by me. I have personally examined the patient and discussed assessment and plan with the IM team. I reviewed the resident note and agree with the plan with exceptions as below. Sepsis Left lower extremity osteomyelitis Cellulitis of left lower extremity Leukocytosis, nonspecific Atrial fibrillation with RVR Morbid obesity Changed to vancomycin/Zosyn to Rocephin and doxycycline per ID recommendations Follow-up MRI of the left lower extremity without contrast Trend WBC Received IV diltiazem. Cardiology consulted. Echocardiogram ordered. [id number]- VASc score is 3.
--- NOTE | 2024-10-11 17:13 | PD.SURCONS ---
HPI Consult details History of present illness: 58F with HTN, morbid obesity and lymphedema admitted 10/09 with LLE cellulitis. Pt has had WBC in 20s, CT showing extensive edema and possible osteomyelitis, MRI pending Review of Systems Review of Systems ROS Unobtainable: All systems reviewed & no additional complaints except as documented Meds Home Medications and Allergies Home Medications ?Medication ?Instructions ?Recorded ?Confirmed ?Type losartan 100 1 tab PO QDAY 10/09/24 10/09/24 History mg-hydrochlorothiazide 12.5 mg tablet Allergies Allergy/AdvReac Type Severity Reaction Status Date / Time No Known Allergies Allergy Verified 10/09/24 12:33 Exam Vital Signs Temp Pulse Resp BP Pulse Ox O2 Del Method O2 Flow Rate 96.7 F L 87 24 H 141/91 H 95 Nasal Cannula 2 10/11/24 12:00 10/11/24 16:00 10/11/24 12:00 10/11/24 12:00 10/11/24 12:00 10/11/24 12:00 10/11/24 12:00 Constitutional Constitutional: no acute distress Routine Respiratory Exam Respiratory: Present no resp distress Routine Extremities Exam Comments: lymphedema of both lower extremities more pronounced on left; left lower leg improved erythema compared to previously made markings, no fluctuance or crepitus Results Results: Laboratory Laboratory results: results reviewed Results: Imaging Imaging narrative: CT foot reviewed Assessment & Plan Plan 58F with HTN, obesity and lymphedema presenting with LLE celluitis which has improved with antibiotics. Pt has no abscess or signs of necrosis, not requiring any surgical intervention Continue abx Please reconsult as needed
[2024-10-11] MEDS: cefTRIAXone 2 GM in SODIUM CHLORIDE 0.9% (P) 50 ML IV (21:28)
[2024-10-11] MEDS: INSULIN GLARGINE (Lantus) 5 UNIT/0.05 ML (PER 5 UNITS) 10 UNIT SC (21:30)
--- NOTE | 2024-10-11 22:14 | CONPN_ITS ---
Subjective Subjective Brief History: Patient is a 58-year-old who has had chronic lymphedema both lower extremities. She says her legs are like her mother's. She has had recurrent itching pruritus small ulcers both lower legs for quite some time. Approximately 5 days ago she developed pain in her left foot rapidly spreading to the left leg with marked increased swelling heat erythema Narrative: Much improved with less pain in left lower extremity Exam Vital Signs Temp Pulse Resp BP Pulse Ox O2 Del Method O2 Flow Rate 96.7 F L 101 H 16 120/87 H 94 L Nasal Cannula 2 10/11/24 20:00 10/11/24 20:00 10/11/24 20:00 10/11/24 20:00 10/11/24 20:00 10/11/24 20:00 10/11/24 16:00 Pulse of 101 with A-fib, blood pressure 120/87 Narrative Exam Redness down considerably. Swelling also down. I did not appreciate the length of the incision she had at age 1 it really extends from the proximal aspect of tibia approaching me it is keloid again on expection the swelling is down to the point where I can see where she probably had the osteomyelitis at age 1 the skin is puckered she is always had a dimple over the distal fibula and her entire life. Objective - Ortho Labs 10/11/24 05:33 10/11/24 05:33 Labs: Laboratory Results - last 24 hr 10/10/24 10/11/24 10/11/24 21:40 05:33 09:11 WBC 21.1 H RBC 4.02 Hgb 11.7 L Hct 37.3 MCV 93 MCH 29.1 MCHC 31.4 RDW Std Deviation 46.2 Plt Count 248 D Neut % (Auto) 76 Lymph % (Auto) 14 [place] % (Auto) 5 Eos % (Auto) 1 Baso % (Auto) 0 Neut # (Auto) 15.9 H Lymph # (Auto) 3.0 [place] # (Auto) 1.0 H Eos # (Auto) 0.1 Baso # (Auto) 0.1 Immature Gran # (Auto) 1.02 H Absolute Nucleated RBC 0.00 Immature Gran % 5 H Nucleated RBC % 0 Sodium 138 Potassium 3.8 Chloride 102 Carbon Dioxide 30.1 Anion Gap 6 L BUN 14 Creatinine 0.8 Estim Creat Clear Calc 123.3 eGFR > 60 BUN/Creatinine Ratio 18 Glucose 131 H Calculated Osmolality 278 Lactic Acid 1.2 Calcium 8.9 Corrected Calcium 9.3 Total Bilirubin 0.6 AST 15 ALT 20 Alkaline Phosphatase 164 H D C-Reactive Prot, Quant 29.0 H Total Protein 6.6 Albumin 3.5 Globulin 3.1 Albumin/Globulin Ratio 1.1 L Vancomycin Trough 13.6 H C-reactive protein 29.8 Assessment & Plan Assessment Additional comments: Remarkable improvement overnight. Dr Mcginnis's RN change antibiotics to Rocephin and doxycycline. I think that is an excellent choice. Because of the marked obesity I am looking forward to how long he would recommend for therapy I am guessing that the amount of bacteria present would be considerable considering the edema the severe swelling skin ulceration. To me it would look better to go longer than short length of time. I do not see anything that would make me concerned about osteomyelitis. As Dr Mcginnis rightly pointed out we would expect a sinus track and the location of the swelling and pain started in the toes and then spread rapidly proximally. Plan Cellulitis is resolving. The question is how long she should stay here. I rather see a little bit longer because of the severe obesity weight of 380 pounds. She has been working 12-hour shifts just recently at the [employer]. I told her she really should look into Social Security disability. I cannot imagine keeping her legs dependent for 12 hours with a 40-minute break. Looks like she is going to need some time off. She would like the residents to follow her. Dr Mcginnis is right hospital resident staff here is limited and unless they join our medical community. I hope we can get her set up with somebody in the community. Newly diagnosed diabetic. I do not see anything that needs orthopedic intervention. The CT scan looks like she does have some arthritis in her knee. She says her left knee is painful. Right knee not painful. Still very nice to get MR scan left ankle left foot. I hope it can be done tomorrow. Will to continue to follow her. I told her we would be happy to help her apply for [employer]. Would be happy to see her in my office next week. I told her I would see her tomorrow Documentation for date of: 10/11/24
[2024-10-12] VITALS (8 sets, daily range): BP systolic 111–148; BP diastolic 77–102; PULSE 76–101; RESP 19–33; TEMP 35.8–36.1; O2SAT 93–96
[2024-10-12] MEDS: oxyCODONE/APAP 5/325 TABLET 1 TAB PO (04:11)
[2024-10-12] MEDS: DILTIAZEM in D5W 125 MG 125 MG/125 ML BAG 10 MG IV (05:45)
[2024-10-12 06:32] LABS: Basophils # (Auto) 0.1 Thou/mm3 (0.0-0.2); Basophils % (Auto) 1 % (0-2.5); Eosinophils # (Auto) 0.1 Thou/mm3 (0.0-0.5); Eosinophils % (Auto) 1 % (0-10); Hematocrit 37.3 % (36.0-46.0); Hemoglobin 11.7 g/dL (12.0-16.0); Immature Granulocytes % (Auto) 5 % (0-0); Immature Granulocytes Auto 0.76 Thou/mm3 (0.00-0.00); Lymphocytes # (Auto) 2.6 Thou/mm3 (1.0-4.8); Lymphocytes % (Auto) 17 % (10-50); Mean Corpuscular HGB Conc 31.4 g/dl (31.0-37.0); Mean Corpuscular Hemoglobin 28.7 pg (25.0-35.0); Mean Corpuscular Volume 91 fL (80-100); Monocytes # (Auto) 0.8 Thou/mm3 (0.0-0.8); Monocytes % (Auto) 5 % (0-12); Neutrophils # (Auto) 10.9 Thou/mm3 (1.8-7.7); Neutrophils % (Auto) 72 % (37-80); Nucleated Red Blood Cell % 0 /100 WBC (0); Platelet Count 254 Thou/mm3 (140-440); RDW Standard Deviation 46.3 fL (36.4-46.3); Red Blood Count 4.08 Miln/mm3 (4.00-5.20); White Blood Count 15.3 Thou/mm3 (3.6-11.0)
[2024-10-12 07:30] LABS: Alanine Aminotransferase 18 U/L (10-49); Albumin, Serum 3.7 gm/dL (3.5-5.0); Albumin/Globulin Ratio 1.2 (1.2-2.2); Alkaline Phosphatase 192 U/L (46-116); Anion Gap 8 (7-16); Aspartate Amino Transferase 12 U/L (0-34); BUN/Creatinine Ratio 19 Ratio (12-20); Bilirubin,Total 0.4 mg/dL (0.3-1.2); Blood Urea Nitrogen 17 mg/dL (9-23); C-Reactive Protein 18.5 mg/dL (0.0-0.9); Calcium 8.6 mg/dL (8.3-10.6); Calcium (Corrected) 8.8 mg/dL (8.5-10.1); Carbon Dioxide 30.3 mMol/L (20.0-31.0); Chloride 98 mMol/L (98-107); Creatinine (Component) 0.9 mg/dL (0.6-1.3); Estimated Creatinine Clearance 111.8 mL/min (>60); Glucose 134 mg/dL (74-106); Osmolality,Calculated 275 (275-295); Potassium 3.5 mMol/L (3.4-5.1); Sodium 136 mMol/L (136-145); Total Protein 6.7 gm/dL (5.7-8.2); eGFR > 60 See Note
[2024-10-12] MEDS: INSULIN LISPRO (AdmeLOG) 1 UNIT/0.01 ML UNIT SC ×4 (07:47→20:46)
[2024-10-12 07:53] LABS: Hepatitis C Antibody Non Reactive (Non React)
[2024-10-12] MEDS: ENOXAPARIN SOD INJ 60 MG/0.6 ML SYRINGE SC (08:28)
[2024-10-12] MEDS: DOXYCYCLINE 100 MG TABLET PO (08:28)
[2024-10-12] MEDS: cefTRIAXone 2 GM in SODIUM CHLORIDE 0.9% (P) 50 ML IV ×2 (08:28→20:45)
--- NOTE | 2024-10-12 09:59 | PD.RESPRO ---
Documentation for date of: 10/12/24 Subjective Subjective Interval history: Patient was seen at bedside this morning. No overnight events. Patient was still in A-fib with heart rate in the 80s to 90s and the highest 1 being in the 121's overnight upon extension educator review. Patient does not have any cardiac complaints at this time and states that her breathing is a lot better. Potassium 3.5 and no magnesium today, recommend to keep potassium magnesium above 4 and 2 respectively to avoid any further arrhythmias. Recommend to start patient on metoprolol XL 100 mg daily and to stop diltiazem drip 2 hours after starting metoprolol. Recommend to start patient on Xarelto for anticoagulation given weight Recommend to repeat EKG to reevaluate rhythm. Can give patient Lasix if blood pressure permissible. Will follow-up on echo ordered. Exam Vital Signs Temp Pulse Resp BP Pulse Ox O2 Del Method O2 Flow Rate 97.0 F 86 19 111/86 H 94 L Nasal Cannula 2 10/12/24 08:00 10/12/24 08:00 10/12/24 08:00 10/12/24 08:00 10/12/24 08:00 10/12/24 08:00 10/12/24 08:00 Narrative Exam General: A/O x3, no acute distress, obese Eyes: PERRL, EOMI. Anicteric, vision grossly intact. Ears: No ear pain, no ear discharge, Hearing grossly intact. Nose: No nasal discharge. Mouth/Throat: Moist mucous membranes, no redness, no lesions. Neck: Neck supple, non-tender, no cervical lymphadenopathy. Lungs: Clear STEVE in upper lobes and decreased in Lower lobes likely due to body habitus, No accessory muscle use. Cardio: Normal S1/S2, regular rhythm, no murmurs, no JVD Abdomen: Soft, non-tender, no palpable masses, peristalsis present, no guarding or rebound. Extremities: Symmetrical, no significant deformities, 3+ peripheral edema , non-tender, peripheral pulses presents. Skin: No rashes, no lesions, warm to touch. multiple lesions in R and L LE. L LE swollen greater than R LE, L LE erythematous, slight improvement. Neuro: No focal neurological deficits. motor and sensory intact. Psych: Cooperative, appropriate mood and effect. Objective Labs 10/12/24 05:39 10/12/24 05:39 Labs: Laboratory Results - last 24 hr 10/11/24 10/12/24 09:11 05:39 WBC 15.3 H D RBC 4.08 Hgb 11.7 L Hct 37.3 MCV 91 MCH 28.7 MCHC 31.4 RDW Std Deviation 46.3 Plt Count 254 Neut % (Auto) 72 Lymph % (Auto) 17 [place] % (Auto) 5 Eos % (Auto) 1 Baso % (Auto) 1 Neut # (Auto) 10.9 H Lymph # (Auto) 2.6 [place] # (Auto) 0.8 Eos # (Auto) 0.1 Baso # (Auto) 0.1 Immature Gran # (Auto) 0.76 H Absolute Nucleated RBC 0.00 Immature Gran % 5 H Nucleated RBC % 0 Sodium 136 Potassium 3.5 Chloride 98 Carbon Dioxide 30.3 Anion Gap 8 BUN 17 Creatinine 0.9 Estim Creat Clear Calc 111.8 eGFR > 60 BUN/Creatinine Ratio 19 Glucose 134 H Calculated Osmolality 275 Calcium 8.6 Corrected Calcium 8.8 Total Bilirubin 0.4 AST 12 ALT 18 Alkaline Phosphatase 192 H D C-Reactive Prot, Quant 18.5 H Total Protein 6.7 Albumin 3.7 Globulin 3.0 Albumin/Globulin Ratio 1.2 Vancomycin Trough 13.6 H Hepatitis C Antibody Non Reactive Quality Measures Quality Measures VTE prophylaxis (Lovenox) Assessment & Plan Assessment Current Active Medications: Generic Name Dose Route Start Last Admin Trade Name Freq PRN Reason Stop Dose Admin Acetaminophen 650 mg 10/10/24 09:29 10/10/24 10:16 Acetaminophen 325 Mg Tablet PO 11/08/24 18:28 650 mg Q6H PRN Administration Fever >100.1 Dextrose 50 ml 10/10/24 09:23 Dextrose 50%-Water Inj 50 Ml Syringe IV 11/09/24 09:22 Q15MIN PRN BG <50 OR BG <70 & pt unresponsive Dextrose 50 ml 10/10/24 13:38 Dextrose 50%-Water Inj 50 Ml Syringe IV 11/09/24 13:37 Q15MIN PRN BG <50 OR BG <70 & pt unresponsive Doxycycline Hyclate 100 mg 10/11/24 14:15 10/12/24 08:28 Doxycycline 100 Mg Tablet PO 10/18/24 14:14 100 mg BID CASSY Administration Enoxaparin Sodium 60 mg 10/09/24 21:00 10/12/24 08:28 Enoxaparin Sod Inj 60 Mg/0.6 Ml Syringe SC 10/23/24 20:59 60 mg BID CASSY Administration Glucagon 1 mg 10/10/24 13:38 Glucagon Inj 1 Mg Vial IM Q15MIN PRN BG <70, and no IV access Vancomycin HCl 1,000 mg/ 500 mls @ 172 mls/hr 10/10/24 10:00 10/11/24 22:56 Vancomycin HCl 750 mg/ Sodium IV 10/17/24 09:59 172 mls/hr Chloride Q12H CASSY Administration Protocol Diltiazem HCl 125 mg in 125 mls @ 10 mls/hr 10/10/24 13:15 10/12/24 05:45 Diltiazem In D5w 125 Mg IV 11/09/24 13:14 10 mg/hr .[id number] CASSY 10 mls/hr Administration 10 MG/HR Ceftriaxone Sodium 2 gm/ 50 mls @ 100 mls/hr 10/11/24 21:00 10/12/24 08:28 Sodium Chloride IV 10/18/24 20:59 100 mls/hr Q12HR CASSY Administration Insulin Glargine 10 unit 10/10/24 21:00 10/11/24 21:30 Insulin Glargine (Lantus) 5 Unit/0.05 Ml (Per 5 Units) SC 11/09/24 20:59 10 unit HS CASSY Administration Insulin Human Lispro 0 unit 10/10/24 17:00 10/12/24 07:47 Insulin Lispro (Admelog) 1 Unit/0.01 Ml Unit SC 11/09/24 16:59 2 unit ACHS CASSY Administration Protocol Losartan Potassium 50 mg 10/10/24 09:30 10/10/24 10:15 Losartan Potassium 25 Mg Tablet PO 11/09/24 09:29 50 mg QDAY CASSY Administration Magnesium Hydroxide 30 ml 10/09/24 18:29 10/11/24 12:01 Milk Of Magnesia Susp 30 Ml Udc PO 11/08/24 18:28 30 ml QDAY PRN Administration CONSTIPATION Protocol Morphine Sulfate 2 mg 10/10/24 11:29 Morphine Sulf Inj 10 Mg/Ml Vial IVP 10/15/24 11:28 Q4HR PRN PAIN SCALE 7-10 (Severe Ondansetron HCl 4 mg 10/09/24 18:29 Ondansetron Inj 2 Mg/Ml Inj 2 Ml IV 11/08/24 18:28 Q6H PRN NAUSEA OR VOMITING Protocol Oxycodone/Acetaminophen 1 tab 10/10/24 11:26 10/12/24 04:11 Oxycodone/Apap 5/325 Tablet PO 10/15/24 11:25 1 tab Q6HR PRN Administration Pain 4-6 Plan 58-year-old female with past medical history of essential hypertension, congestive heart failure, obesity, and chronic ulcers of lower extremities was admitted to hospital on 10/09/2024 due to sepsis likely secondary to left lower extremity cellulitis and A-fib with RVR. 1. A-fib with RVR ?Patient stated that she has been having some palpitations as of recently ? EKG showed A-fib with RVR ?[id number] score of 4 points indicating 4.8% risk of stroke per year. ?HAS-BLED score of 0, relatively low risk of major bleeding Plan: ?Recommend repeat EKG ?Recommend to start patient on metoprolol XL 100 mg daily if blood pressure allows and stop diltiazem drip 2 hours after starting metoprolol XL. ?Recommend to start patient on Xarelto for anticoagulation given weight ?Recommend to keep potassium and magnesium above 4 and 2 respectively to avoid any further arrhythmias 2. Acute decompensated heart failure exacerbation? 3. Essential hypertension ?Patient has been experiencing shortness of breath, orthopnea, and lower extremity swelling ? Patient does have a history of CHF, but there is no echo on file as patient is new to the hospital ?BNP was 227 on admission Plan: ?Can give patient Lasix if blood pressure permissible. ?Will follow-up on echo ordered ? Strict ROBERTO's ? Low-sodium diet ? Daily weights ? Fluid restrictions ?Recommend to keep potassium and magnesium above 4 and 2 respectively to avoid any further arrhythmias 4. Sepsis likely secondary to left lower extremity cellulitis versus osteomyelitis ? Continue current management as per primary care team 5. DM2, newly diagnosed ? Continue current management as per primary care team 6. Hyponatremia ? Continue current management as per primary care team Continue rest of management as per primary team. We are grateful to be able to participate in Mrs. Heath's care. Thank you for the consult Plan of care discussed with attending Gas Processing Plant Operator, Dr Sophie Mckeon MD PGY-1 Attending Provider Attestation/Addendum I have personally seen and examined the patient separately on the above date of service and discussed the plan of care with the resident. I reviewed the resident Dr. South consultation progress note and agree with the resident findings and plan in the note above and have also edited the documentation to reflect my findings and plan. 58-year-old female with morbid obesity with BMI greater than 66, chronic bilateral leg swelling with possible lymphedema along with chronic ulcers of bilateral lower extremities with active ulcers of the left foot now, history of congestive heart failure, questionable sleep apnea, history of COVID in 2021 presented to the emergency department for further evaluation of bilateral leg swelling along with redness of her left leg and also was found to be in atrial fibrillation with RVR. Patient does have atrial fibrillation with RVR on admission and was started on diltiazem drip. The rate is well-controlled 10 mg/h and recommend to start metoprolol XL 100 mg and stop the diltiazem drip in 2 hours after that. Continue Heparin drip for anticoagulation and patient should be placed on Xarelto for anticoagulation as outpatient rather than Eliquis given weight is greater than 150 kg if no further procedures are planned. Recommend to repeat EKG to reevaluate the rhythm. Patient explained the need to lose weight as obesity is an independent risk factor for the atrial fibrillation Patient also presented with bilateral leg swelling and some shortness of breath which has been chronic. BNP was elevated at 226 and also patient has congestion noted on the CTA with possible CHF pattern. Recommend to continue diuresis with IV Lasix for now if blood pressure permissible. Strict input of recommend elevation and 2 g odium diet. Echocardiogram ordered to evaluate LV function RV function as well as diastolic function. Of note patient has already been ordered for a sleep test to rule out any sleep apnea and also has cast associate appointment for next month in October and recommended to make sure to follow-up with cardiology for her A-fib as well as her CHF. Patient does have left lower extremity with small skin breaks or wounds and with left leg redness noted. CT of the lower leg was done which showed possible osteomyelitis of the fibula. Patient has WBC elevated and primary team started patient on IV antibiotics and further workup as per the primary team. 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 Luis Barrios M.D. Interventional Cardiology
[2024-10-12 10:40] LABS: Sed Rate (ESR) 89 mm/hr (0-30)
--- NOTE | 2024-10-12 10:54 | PC.SS ---
Addendum entered by Armida Mcdonald 10/12/24 11:59: Follow up note: Family called and wanted to speak re: d/c planning needs. Discussed differences between SNF vs HH. Patient states they are still deciding whether or not to do i.v.'s vs amputation. Patient is pending PT eval. Son and daughter were present and will be assisting patient. Patient confirmed her last appt. was at [facility] in [place] 3 weeks ago but does not remember with what physician. Patient states she has an upcoming appt with Pulmonology testing with [facility] for a sleep study in 2024. SS will continue to follow up with further planning. Original Note: rounding note: MRI of foot pending. Ortho rec's pending. I.v. antibiotics vs surgery
[2024-10-12] MEDS: METOPROLOL SUCCINATE XL 25 MG TABCR 100 MG PO (10:56)
[2024-10-12] MEDS: POTASSIUM CHLORIDE 20 mEq TABCR PO (10:57)
[2024-10-12] MEDS: ASPIRIN EC 81 MG TABEC PO (13:18)
--- NOTE | 2024-10-12 13:26 | ESPR_ITS ---
Documentation for date of: 10/12/24 Subjective Subjective Interval history: Patient was seen and examined bedside. Denies complaints. No acute overnight events. On physical examination, the cellulitis resolved Labs showed downtrending WBC, ESR, CRP Diltiazem drip was stopped and restarted on metoprolol 100 Mg XL, Xarelto as recommended by Dr. Barrios Pending MRI. Exam Vital Signs Temp Pulse Resp BP Pulse Ox O2 Del Method O2 Flow Rate 97.0 F 88 26 H 124/77 96 Nasal Cannula 2 10/12/24 12:00 10/12/24 12:00 10/12/24 12:00 10/12/24 12:00 10/12/24 12:00 10/12/24 12:00 10/12/24 12:00 Narrative Exam General: Awake. Morbidly obese HEENT: Normocephalic, atraumatic, mucous membranes moist. Heart: Irregular rate and rhythm, no murmurs. Lungs: Clear to auscultation with no wheezing or crackles. Abdomen: Soft, nondistended, nontender, positive bowel sounds. ?No guarding or rebound tenderness. Neurologic: Alert and oriented x3, no gross neurological deficit, and patient able to move all 4 extremities. Extremities: Swelling and erythema decreased from the time of admission on left lower extremity. Multiple ulcers noted on bilateral lower extremity Skin: No rash or ecchymoses. Objective Labs 10/13/24 05:11 10/13/24 05:11 Labs: Laboratory Results - last 24 hr 10/12/24 05:39 WBC 15.3 H D RBC 4.08 Hgb 11.7 L Hct 37.3 MCV 91 MCH 28.7 MCHC 31.4 RDW Std Deviation 46.3 Plt Count 254 Neut % (Auto) 72 Lymph % (Auto) 17 [place] % (Auto) 5 Eos % (Auto) 1 Baso % (Auto) 1 Neut # (Auto) 10.9 H Lymph # (Auto) 2.6 [place] # (Auto) 0.8 Eos # (Auto) 0.1 Baso # (Auto) 0.1 Immature Gran # (Auto) 0.76 H Absolute Nucleated RBC 0.00 Immature Gran % 5 H Nucleated RBC % 0 ESR 89 H Sodium 136 Potassium 3.5 Chloride 98 Carbon Dioxide 30.3 Anion Gap 8 BUN 17 Creatinine 0.9 Estim Creat Clear Calc 111.8 eGFR > 60 BUN/Creatinine Ratio 19 Glucose 134 H Calculated Osmolality 275 Calcium 8.6 Corrected Calcium 8.8 Total Bilirubin 0.4 AST 12 ALT 18 Alkaline Phosphatase 192 H D C-Reactive Prot, Quant 18.5 H Total Protein 6.7 Albumin 3.7 Globulin 3.0 Albumin/Globulin Ratio 1.2 Hepatitis C Antibody Non Reactive Quality Measures Quality Measures VTE prophylaxis (Lovenox) Assessment & Plan Assessment Current Active Medications: Generic Name Dose Route Start Last Admin Trade Name Freq PRN Reason Stop Dose Admin Acetaminophen 650 mg 10/10/24 09:29 10/10/24 10:16 Acetaminophen 325 Mg Tablet PO 11/08/24 18:28 650 mg Q6H PRN Administration Fever >100.1 Aspirin 81 mg 10/12/24 12:30 10/12/24 13:18 Aspirin Ec 81 Mg Tabec PO 11/11/24 12:29 81 mg QDAY CASSY Administration Dextrose 50 ml 10/10/24 09:23 Dextrose 50%-Water Inj 50 Ml Syringe IV 11/09/24 09:22 Q15MIN PRN BG <50 OR BG <70 & pt unresponsive Dextrose 50 ml 10/10/24 13:38 Dextrose 50%-Water Inj 50 Ml Syringe IV 11/09/24 13:37 Q15MIN PRN BG <50 OR BG <70 & pt unresponsive Glucagon 1 mg 10/10/24 13:38 Glucagon Inj 1 Mg Vial IM Q15MIN PRN BG <70, and no IV access Ceftriaxone Sodium 2 gm/ 50 mls @ 100 mls/hr 10/11/24 21:00 10/12/24 08:28 Sodium Chloride IV 10/18/24 20:59 100 mls/hr Q12HR CASSY Administration Doxycycline Hyclate 100 mg/ 100 mls @ 100 mls/hr 10/12/24 21:00 Sodium Chloride IV 10/19/24 20:59 BID CASSY Insulin Glargine 10 unit 10/10/24 21:00 10/11/24 21:30 Insulin Glargine (Lantus) 5 Unit/0.05 Ml (Per 5 Units) SC 11/09/24 20:59 10 unit HS CASSY Administration Insulin Human Lispro 0 unit 10/10/24 17:00 10/12/24 11:28 Insulin Lispro (Admelog) 1 Unit/0.01 Ml Unit SC 11/09/24 16:59 2 unit ACHS CASSY Administration Protocol Losartan Potassium 50 mg 10/10/24 09:30 10/10/24 10:15 Losartan Potassium 25 Mg Tablet PO 11/09/24 09:29 50 mg QDAY CASSY Administration Magnesium Hydroxide 30 ml 10/09/24 18:29 10/11/24 12:01 Milk Of Magnesia Susp 30 Ml Udc PO 11/08/24 18:28 30 ml QDAY PRN Administration CONSTIPATION Protocol Metoprolol Succinate 100 mg 10/13/24 09:00 Metoprolol Succinate Xl 25 Mg Tabcr PO 11/12/24 08:59 QDAY CASSY Morphine Sulfate 2 mg 10/10/24 11:29 Morphine Sulf Inj 10 Mg/Ml Vial IVP 10/15/24 11:28 Q4HR PRN PAIN SCALE 7-10 (Severe Ondansetron HCl 4 mg 10/09/24 18:29 Ondansetron Inj 2 Mg/Ml Inj 2 Ml IV 11/08/24 18:28 Q6H PRN NAUSEA OR VOMITING Protocol Oxycodone/Acetaminophen 1 tab 10/10/24 11:26 10/12/24 04:11 Oxycodone/Apap 5/325 Tablet PO 10/15/24 11:25 1 tab Q6HR PRN Administration Pain 4-6 Rivaroxaban 15 mg 10/12/24 12:30 Rivaroxaban 10 Mg Tablet PO 11/11/24 12:29 BID CASSY Plan A 58-year-old female who is morbidly obese, history of hypertension on losartan and hydrochlorothiazide presented to the hospital with chief complaints of pain, swelling and redness of left lower extremity since 1 week and admitted in the hospital for sepsis secondary to left lower extremity cellulitis. # Sepsis, resolved # Secondary to left lower extremity cellulitis # To rule out Osteomyelitis # Leukocytosis -Came with complaint of lower extremity swelling, pain, redness since 5 days. -At the time of admission patient is found to have a temperature of 101 ?F, blood pressure 156/106 mmHg, pulse rate 150 bpm. SpO2 97% with room air -On examination, tenderness, localized rise of temperature with induration is noted in left lower extremity extending up to the knee. -Bilateral peripheral pulses are felt. -Labs showed WBC 20.7, ESR 93, CRP 28.3. Procalcitonin is 0.72 -Patient fits into sepsis criteria = fever 101 ?F, WBC 20.7, pulse rate 150+ cellulitis -Venous Doppler of bilateral lower extremity is negative for DVT -Foot x-ray showed soft tissue swelling without signs of osteomyelitis. -CT of bilateral lower extremity -Soft tissue defect lower leg adjacent to the distal fibula with periosteal new bone involving the fibula at this site consistent with early osteomyelitis -Blood cultures -no growth after 48 hours Plan -Vancomycin and zosyn is started [10/09 - 10/10] -Dr Mcginnis was consulted and recommended ceftriaxone 2 g IV daily and doxycycline 100 Mg twice daily instead of Vanco and Zosyn -Acetaminophen as needed is added -Dr. Lucia was consulted and recommended no surgery as of now in view of current patient condition -Dr. Bowman was consulted and recommended no active intervention as of now -MRI is still pending -Physical therapy is ordered # New onset atrial fibrillation with rapid ventricular rate -- controlled ventricular rate #? New onset CHF -Presented with bilateral lower extremity swelling and shortness of breath for over months from now -Chest x-ray showed bilateral moderate vascular congestion with CHF pattern -[id number] score is 4 Plan -Patient was started on metoprolol 100mg XL and xarelto as recommended by Dr. Barrios # Newly diagnosed diabetes mellitus -HbA1c is 6.9 -Started on insulin sliding scale -Hypoglycemia protocol in place # Hyponatremia, resolved Likely due to decreased oral intake vs thiazide -Sodium at the time of admission is 128 and osmolality is 263 -Patient is using losartan and hydrochlorothiazide combination. -Patient appears euvolemic as of now -Sodium levels are within normal limits after the hospital admission -Stopped Hydrochlorthiazide -Will continue to monitor electrolytes and replete accordingly. # History of hypertension -Patient is using losartan and hydrochlorothiazide combination, continued losartan -Will monitor blood pressures for now and add medications as needed Hospital Maintenance: Dispo: tele DVT ppx: xarelto GI ppx: Not needed Diet: low carb consistent IV lines: Peripheral Code status: Full code Patient plan of care was discussed with the attending physician, Dr. Emmanuel and senior resident Dr. Sandi Zamudio, PGY1 Attending Provider Attestation/Addendum I reviewed labs, imaging, EKG, home medications and prior available records. Face to face evaluation was performed by me. I have personally examined the patient and discussed assessment and plan with the IM team. I reviewed the resident note and agree with the plan with exceptions as below. Sepsis Left lower extremity osteomyelitis Cellulitis of left lower extremity Leukocytosis, nonspecific Atrial fibrillation with RVR Morbid obesity Changed to vancomycin/Zosyn to Rocephin and doxycycline per ID recommendations Follow-up MRI of the left lower extremity without contrast. Orthopedic surgery is following. Trend WBC: Downtrending Received IV diltiazem. Cardiology consulted. Switch to p.o. metoprolol XL. Echocardiogram ordered. [id number] score is 3. Cardiology recommended Brilinta and Xarelto.
[2024-10-12 18:06] LABS: HIV (1&2) Antibody Rapid Non-Reactive
[2024-10-12] MEDS: INSULIN GLARGINE (Lantus) 5 UNIT/0.05 ML (PER 5 UNITS) 10 UNIT SC (20:45)
[2024-10-12] MEDS: RIVAROXABAN 10 MG TABLET 15 MG PO (20:45)
[2024-10-12] MEDS: DOXYCYCLINE INJ 100 MG in SODIUM CHLORIDE 0.9% (P) 100 ML IV (21:17)
--- NOTE | 2024-10-12 22:07 | PD.ORTHCONPN ---
Subjective Subjective Brief History: Patient is a 58-year-old who has had chronic lymphedema both lower extremities. She says her legs are like her mother's. She has had recurrent itching pruritus small ulcers both lower legs for quite some time. Approximately 5 days ago she developed pain in her left foot rapidly spreading to the left leg with marked increased swelling heat erythema Narrative: Swelling is coming down nicely. 2 bullae present measuring approximately 1.5 cm. Ulcer is looking much better Exam Vital Signs Temp Pulse Resp BP Pulse Ox O2 Del Method O2 Flow Rate 96.5 F L 82 21 H 116/85 H 95 Nasal Cannula 1 10/12/24 20:00 10/12/24 20:00 10/12/24 20:00 10/12/24 20:00 10/12/24 20:00 10/12/24 20:00 10/12/24 20:00 Heart rate 82 Narrative Exam Marked decrease in swelling. Has 2 bullae medial aspect left ankle left heel. I have not seen him before. Objective - Ortho Labs 10/12/24 05:39 10/12/24 05:39 Labs: Laboratory Results - last 24 hr 10/12/24 05:39 WBC 15.3 H D RBC 4.08 Hgb 11.7 L Hct 37.3 MCV 91 MCH 28.7 MCHC 31.4 RDW Std Deviation 46.3 Plt Count 254 Neut % (Auto) 72 Lymph % (Auto) 17 [place] % (Auto) 5 Eos % (Auto) 1 Baso % (Auto) 1 Neut # (Auto) 10.9 H Lymph # (Auto) 2.6 [place] # (Auto) 0.8 Eos # (Auto) 0.1 Baso # (Auto) 0.1 Immature Gran # (Auto) 0.76 H Absolute Nucleated RBC 0.00 Immature Gran % 5 H Nucleated RBC % 0 ESR 89 H Sodium 136 Potassium 3.5 Chloride 98 Carbon Dioxide 30.3 Anion Gap 8 BUN 17 Creatinine 0.9 Estim Creat Clear Calc 111.8 eGFR > 60 BUN/Creatinine Ratio 19 Glucose 134 H Calculated Osmolality 275 Calcium 8.6 Corrected Calcium 8.8 Total Bilirubin 0.4 AST 12 ALT 18 Alkaline Phosphatase 192 H D C-Reactive Prot, Quant 18.5 H Total Protein 6.7 Albumin 3.7 Globulin 3.0 Albumin/Globulin Ratio 1.2 Hepatitis C Antibody Non Reactive HIV 1&2 Antibody Rapid Non-Reactive White count 15,300 Assessment & Plan Assessment Additional comments: The left ankle was carefully prepped with ChloraPrep we waited 3 minutes the blisters were aspirated with an 18-gauge needle very thin purulent material not viscous at all sent for culture sensitivity Gram stain and possible cell count if enough fluid available Plan Fluid sent for culture and sensitivity and Gram stain and if enough left cell count Documentation for date of: 10/12/24
--- NOTE | 2024-10-12 22:20 | PD.ADDPROG ---
Addendum Progress Note Addendum Date of report being addended: 10/12/24 Narrative: I would like to get MRI scan tomorrow.
[2024-10-12 23:16] LABS: Synovial Fluid Color Straw
[2024-10-12 23:17] LABS: Synovial Fluid Appearance Cloudy; Synovial Fluid RBC 17760 /cmm; Synovial Fluid WBC 27840 /cmm
[2024-10-12 23:30] LABS: Synovial Fluid Mononuclear 10 %; Synovial Fluid Polynuclear 90 %
[2024-10-13] VITALS (7 sets, daily range): BP systolic 114–163; BP diastolic 27–90; PULSE 68–96; RESP 14–27; TEMP 35.6–36.3; O2SAT 91–97; BMI 69.2; BMI 13.0
--- NOTE | 2024-10-13 | XR_ITS ---
Examination: MRI left lower leg, without contrast Date and time of exam: October 13, 2024 1835 hrs. Indications: Redness swelling and pain involving the lower leg beginning 3 days ago Technique: Multiple axial sagittal and coronal images of the left lower leg without contrast have been obtained with the Siemens high-resolution 1.5 Vonda MRI scanner. Images obtained include T2-weighted fat-suppressed sagittal sections, TR 3500, TE 46, T2 weighted coronal fat suppressed images, TR 3050, TE 84, T2-weighted transverse fat suppressed images, TR 3260, TE 63, proton density transverse images, TR 4720 TE 46, and T1 weighted coronal images, TR 560, TE 13. Findings: In the subcutaneous tissue lower leg Large soft tissue defect ankle region at the lateral malleolus Early cortical bone destruction axial image 35 involving the lateral distal fibular shaft No endosteal scalloping No soft tissue abscess Impression: Early osteomyelitis distal lateral fibular shaft
[2024-10-13 06:03] LABS: Basophils # (Auto) 0.1 Thou/mm3 (0.0-0.2); Basophils % (Auto) 0 % (0-2.5); Eosinophils # (Auto) 0.1 Thou/mm3 (0.0-0.5); Eosinophils % (Auto) 1 % (0-10); Hematocrit 38.2 % (36.0-46.0); Hemoglobin 12.1 g/dL (12.0-16.0); Immature Granulocytes % (Auto) 3 % (0-0); Immature Granulocytes Auto 0.39 Thou/mm3 (0.00-0.00); Lymphocytes # (Auto) 2.4 Thou/mm3 (1.0-4.8); Lymphocytes % (Auto) 17 % (10-50); Mean Corpuscular HGB Conc 31.7 g/dl (31.0-37.0); Mean Corpuscular Hemoglobin 28.9 pg (25.0-35.0); Mean Corpuscular Volume 91 fL (80-100); Monocytes # (Auto) 0.8 Thou/mm3 (0.0-0.8); Monocytes % (Auto) 6 % (0-12); Neutrophils # (Auto) 10.5 Thou/mm3 (1.8-7.7); Neutrophils % (Auto) 74 % (37-80); Nucleated Red Blood Cell % 0 /100 WBC (0); Platelet Count 249 Thou/mm3 (140-440); RDW Standard Deviation 46.1 fL (36.4-46.3); Red Blood Count 4.18 Miln/mm3 (4.00-5.20); White Blood Count 14.2 Thou/mm3 (3.6-11.0)
[2024-10-13 06:24] LABS: Sed Rate (ESR) 98 mm/hr (0-30)
[2024-10-13 06:38] LABS: Anion Gap 4 (7-16); BUN/Creatinine Ratio 25 Ratio (12-20); Blood Urea Nitrogen 20 mg/dL (9-23); Calcium 9.1 mg/dL (8.3-10.6); Chloride 99 mMol/L (98-107); Creatinine (Component) 0.8 mg/dL (0.6-1.3); Estimated Creatinine Clearance 127.2 mL/min (>60); Glucose 128 mg/dL (74-106); Osmolality,Calculated 272 (275-295); Potassium 4.3 mMol/L (3.4-5.1); Sodium 134 mMol/L (136-145); eGFR > 60 See Note
[2024-10-13] MEDS: cefTRIAXone 2 GM in SODIUM CHLORIDE 0.9% (P) 50 ML IV ×2 (08:34→21:36)
[2024-10-13] MEDS: RIVAROXABAN 10 MG TABLET 15 MG PO ×2 (08:34→21:35)
[2024-10-13] MEDS: METOPROLOL SUCCINATE XL 25 MG TABCR 100 MG PO (08:35)
[2024-10-13] MEDS: ASPIRIN EC 81 MG TABEC PO (08:35)
[2024-10-13] MEDS: DOXYCYCLINE INJ 100 MG in SODIUM CHLORIDE 0.9% (P) 100 ML IV ×2 (09:45→21:36)
[2024-10-13] MEDS: oxyCODONE/APAP 5/325 TABLET 1 TAB PO ×2 (10:38→21:35)
--- NOTE | 2024-10-13 10:38 | PD.IMPROG ---
Documentation for date of: 10/13/24 Subjective Subjective Interval history: Patient was seen at bedside this morning. No overnight events. No new cardiac complaints and patient states her breath is better. Patient appears to be paroxysmal atrial fibrillation and has possible intermittent anasarca. Recommend to repeat an EKG to confirm A-fib versus NSR. Continue telemetry monitoring Rate is well-controlled on metoprolol XL 100 mg once daily and recommend to continue the same dose. Present Xarelto for anticoagulation as the rate is greater than 150 kg. Patient kidney function is stable and patient can be started on low-dose of Lasix-increase to 40 mg once daily orally as she does have some diastolic heart failure along with moderate PAH as noted below. Strict input output, daily weights and 2 g sodium diet. Potassium greater than 4 and magnesium greater than 2.0 at all times. Echo completed on 10/12/2024 showed Suboptimal images due to body habitus. Normal LV size and function with an estimated EF of 50 to 55%. Mild LVH Diastolic dysfunction indeterminate Normal RV size and function. Estimated RVSP, 47 mmHg. RAP 5. At least moderate PAH Mild MR and moderate TR. Rest of the valve structures not visualized appropriately well. Orthopedics, surgery as well as ID following the patient and patient does have questionable osteomyelitis of the left leg along with a cellulitis and is on IV antibiotics. Further management of cellulitis, osteomyelitis as per the primary team and the rest of the consultants. Exam Vital Signs Temp Pulse Resp BP Pulse Ox O2 Del Method O2 Flow Rate 96.6 F L 75 18 114/79 94 L Nasal Cannula 1 10/13/24 08:00 10/13/24 08:35 10/13/24 08:00 10/13/24 08:35 10/13/24 08:00 10/13/24 08:00 10/13/24 08:00 Narrative Exam General: A/O x3, no acute distress, obese Eyes: PERRL, EOMI. Anicteric, vision grossly intact. Ears: No ear pain, no ear discharge, Hearing grossly intact. Nose: No nasal discharge. Mouth/Throat: Moist mucous membranes, no redness, no lesions. Neck: Neck supple, non-tender, no cervical lymphadenopathy. Lungs: Clear STEVE in upper lobes and decreased in Lower lobes likely due to body habitus, No accessory muscle use. Cardio: Normal S1/S2, regular rhythm, no murmurs, no JVD Abdomen: Soft, non-tender, no palpable masses, peristalsis present, no guarding or rebound. Extremities: Symmetrical, no significant deformities, 3+ peripheral edema , non-tender, peripheral pulses presents. Skin: No rashes, no lesions, warm to touch. multiple lesions in R and L LE. L LE swollen greater than R LE, L LE erythematous, slight improvement. Neuro: No focal neurological deficits. motor and sensory intact. Psych: Cooperative, appropriate mood and effect. Objective Labs 10/14/24 04:15 10/14/24 04:15 Labs: Laboratory Results - last 24 hr 10/12/24 10/12/24 10/13/24 05:39 22:06 05:11 WBC 14.2 H RBC 4.18 Hgb 12.1 Hct 38.2 MCV 91 MCH 28.9 MCHC 31.7 RDW Std Deviation 46.1 Plt Count 249 Neut % (Auto) 74 Lymph % (Auto) 17 [place] % (Auto) 6 Eos % (Auto) 1 Baso % (Auto) 0 Neut # (Auto) 10.5 H Lymph # (Auto) 2.4 [place] # (Auto) 0.8 Eos # (Auto) 0.1 Baso # (Auto) 0.1 Immature Gran # (Auto) 0.39 H Absolute Nucleated RBC 0.00 Immature Gran % 3 H Nucleated RBC % 0 ESR 89 H 98 H Sodium 134 L Potassium 4.3 D Chloride 99 Carbon Dioxide 31.0 Anion Gap 4 L BUN 20 Creatinine 0.8 Estim Creat Clear Calc 127.2 eGFR > 60 BUN/Creatinine Ratio 25 H Glucose 128 H Calculated Osmolality 272 L Calcium 9.1 C-Reactive Prot, Quant 12.0 H Synovial Source Synovial Color Straw Synovial Appearance Cloudy Synovial WBC 77807 Synovial RBC 95580 Synov Polynuclear WBCs 90 Synov Mononuclear WBCs 10 HIV 1&2 Antibody Rapid Non-Reactive Assessment & Plan A&P Narrative 58-year-old female with past medical history of essential hypertension, congestive heart failure, obesity, and chronic ulcers of lower extremities was admitted to hospital on 10/09/2024 due to sepsis likely secondary to left lower extremity cellulitis and A-fib with RVR. 1. A-fib with RVR new onset 2. Acute on chronic HFpEF exacerbation 3. Moderate pulmonary hypertension 4. Sepsis likely secondary to left lower extremity cellulitis versus osteomyelitis 5. Essential hypertension 6. DM2, newly diagnosed 7. Morbid obesity with BMI greater than 66 8. Hyponatremia 9. Chronic lymphedema of bilateral legs 10. Chronic ulcers of bilateral lower extremities with active infection of the left foot right now 11. Sleep apnea 58-year-old female with morbid obesity with BMI greater than 66, chronic bilateral leg swelling with possible lymphedema along with chronic ulcers of bilateral lower extremities with active ulcers of the left foot now, history of congestive heart failure, questionable sleep apnea, history of COVID in 2021 presented to the emergency department for further evaluation of bilateral leg swelling along with redness of her left leg and also was found to be in atrial fibrillation with RVR. Patient does have atrial fibrillation with RVR on admission and was started on diltiazem drip. The rate is well-controlled 10 mg/h and recommend to start metoprolol XL 100 mg and stop the diltiazem drip in 2 hours after that. Continue Heparin drip for anticoagulation and patient should be placed on Xarelto for anticoagulation as outpatient rather than Eliquis given weight is greater than 150 kg if no further procedures are planned. Recommend to repeat EKG to reevaluate the rhythm. Patient explained the need to lose weight as obesity is an independent risk factor for the atrial fibrillation Patient also presented with bilateral leg swelling and some shortness of breath which has been chronic. BNP was elevated at 226 and also patient has congestion noted on the CTA with possible CHF pattern. Recommend to continue diuresis with IV Lasix for now if blood pressure permissible. Strict input of recommend elevation and 2 g odium diet. Echocardiogram ordered to evaluate LV function RV function as well as diastolic function. Of note patient has already been ordered for a sleep test to rule out any sleep apnea and also has end finder forming department appointment for next month in October and recommended to make sure to follow-up with cardiology for her A-fib as well as her CHF. Patient does have left lower extremity with small skin breaks or wounds and with left leg redness noted. CT of the lower leg was done which showed possible osteomyelitis of the fibula. Patient has WBC elevated and primary team started patient on IV antibiotics and further workup as per the primary team. 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 10/13/2024: No overnight events. No new cardiac complaints and patient states her breath is better. Patient appears to be paroxysmal atrial fibrillation and has possible intermittent anasarca. Recommend to repeat an EKG to confirm A-fib versus NSR. Continue telemetry monitoring Rate is well-controlled on metoprolol XL 100 mg once daily and recommend to continue the same dose. Present Xarelto for anticoagulation as the rate is greater than 150 kg. Patient kidney function is stable and patient can be started on low-dose of Lasix-increase to 40 mg once daily orally as she does have some diastolic heart failure along with moderate PAH as noted below. Strict input output, daily weights and 2 g sodium diet. Potassium greater than 4 and magnesium greater than 2.0 at all times. Echo completed on 10/12/2024 showed Suboptimal images due to body habitus. Normal LV size and function with an estimated EF of 50 to 55%. Mild LVH Diastolic dysfunction indeterminate Normal RV size and function. Estimated RVSP, 47 mmHg. RAP 5. At least moderate PAH Mild MR and moderate TR. Rest of the valve structures not visualized appropriately well. Orthopedics, surgery as well as ID following the patient and patient does have questionable osteomyelitis of the left leg along with a cellulitis and is on IV antibiotics. Further management of cellulitis, osteomyelitis as per the primary team and the rest of the consultants. Luis Barrios M.D. Interventional Cardiology Time Spent With Patient Time: Total time spent is greater than 50% in coordination of care (as documented) at patient's floor/unit and/or counseling patient:
[2024-10-13] MEDS: INSULIN LISPRO (AdmeLOG) 1 UNIT/0.01 ML UNIT SC ×3 (11:30→21:33)
--- NOTE | 2024-10-13 11:56 | ESPR_ITS ---
<Statement entered by Akanksha Junior MD - 10/13/24 15:38> Patient was seen and examined by me personally. I agree with most of the assessment and plan as discussed with the corporate strategy intern physician, and my attending, Dr. Emmanuel. Vitals, labs reviewed. Pending MRI. Will guide further care plan on whether patient will need PICC and long term care social worker abx. Continue abx for now. Cardio following, appreciate recs: changed dilt drip to metoprolol. Akanksha Junior MD, PGY-3 Documentation for date of: 10/13/24 Subjective Subjective Interval history: Patient was seen and examined bedside. Reported that last night Dr. Lucia aspirated fluid from the bleb on left ankle and sent the fluid for analysis. Denies any other overnight events. No complaints. Pending MRI. If MRI foot still shows osteomyelitis planning to insert a PICC line and send her home on antibiotics for 6 weeks. Exam Vital Signs Temp Pulse Resp BP Pulse Ox O2 Del Method O2 Flow Rate 96.6 F L 75 18 114/79 94 L Nasal Cannula 1 10/13/24 08:00 10/13/24 08:35 10/13/24 08:00 10/13/24 08:35 10/13/24 08:00 10/13/24 08:00 10/13/24 08:00 Narrative Exam General: Awake. Morbidly obese HEENT: Normocephalic, atraumatic, mucous membranes moist. Heart: Irregular rate and rhythm, no murmurs. Lungs: Clear to auscultation with no wheezing or crackles. Abdomen: Soft, nondistended, nontender, positive bowel sounds. ?No guarding or rebound tenderness. Neurologic: Alert and oriented x3, no gross neurological deficit, and patient able to move all 4 extremities. Extremities: Swelling and erythema decreased from the time of admission on left lower extremity. Multiple ulcers noted on bilateral lower extremity Skin: No rash or ecchymoses. Objective Labs 10/14/24 04:15 10/14/24 04:15 Labs: Laboratory Results - last 24 hr 10/12/24 10/12/24 10/13/24 05:39 22:06 05:11 WBC 14.2 H RBC 4.18 Hgb 12.1 Hct 38.2 MCV 91 MCH 28.9 MCHC 31.7 RDW Std Deviation 46.1 Plt Count 249 Neut % (Auto) 74 Lymph % (Auto) 17 [place] % (Auto) 6 Eos % (Auto) 1 Baso % (Auto) 0 Neut # (Auto) 10.5 H Lymph # (Auto) 2.4 [place] # (Auto) 0.8 Eos # (Auto) 0.1 Baso # (Auto) 0.1 Immature Gran # (Auto) 0.39 H Absolute Nucleated RBC 0.00 Immature Gran % 3 H Nucleated RBC % 0 ESR 98 H Sodium 134 L Potassium 4.3 D Chloride 99 Carbon Dioxide 31.0 Anion Gap 4 L BUN 20 Creatinine 0.8 Estim Creat Clear Calc 127.2 eGFR > 60 BUN/Creatinine Ratio 25 H Glucose 128 H Calculated Osmolality 272 L Calcium 9.1 C-Reactive Prot, Quant 12.0 H Synovial Source Synovial Color Straw Synovial Appearance Cloudy Synovial WBC 60011 Synovial RBC 15853 Synov Polynuclear WBCs 90 Synov Mononuclear WBCs 10 HIV 1&2 Antibody Rapid Non-Reactive Quality Measures Quality Measures VTE prophylaxis (Lovenox) Assessment & Plan Assessment Current Active Medications: Generic Name Dose Route Start Last Admin Trade Name Freq PRN Reason Stop Dose Admin Acetaminophen 650 mg 10/10/24 09:29 10/10/24 10:16 Acetaminophen 325 Mg Tablet PO 11/08/24 18:28 650 mg Q6H PRN Administration Fever >100.1 Aspirin 81 mg 10/12/24 12:30 10/13/24 08:35 Aspirin Ec 81 Mg Tabec PO 11/11/24 12:29 81 mg QDAY CASSY Administration Dextrose 50 ml 10/10/24 09:23 Dextrose 50%-Water Inj 50 Ml Syringe IV 11/09/24 09:22 Q15MIN PRN BG <50 OR BG <70 & pt unresponsive Dextrose 50 ml 10/10/24 13:38 Dextrose 50%-Water Inj 50 Ml Syringe IV 11/09/24 13:37 Q15MIN PRN BG <50 OR BG <70 & pt unresponsive Glucagon 1 mg 10/10/24 13:38 Glucagon Inj 1 Mg Vial IM Q15MIN PRN BG <70, and no IV access Ceftriaxone Sodium 2 gm/ 50 mls @ 100 mls/hr 10/11/24 21:00 10/13/24 08:34 Sodium Chloride IV 10/18/24 20:59 100 mls/hr Q12HR CASSY Administration Doxycycline Hyclate 100 mg/ 100 mls @ 100 mls/hr 10/12/24 21:00 10/13/24 09:45 Sodium Chloride IV 10/19/24 20:59 100 mls/hr BID CASSY Administration Insulin Glargine 10 unit 10/10/24 21:00 10/12/24 20:45 Insulin Glargine (Lantus) 5 Unit/0.05 Ml (Per 5 Units) SC 11/09/24 20:59 10 unit HS CASSY Administration Insulin Human Lispro 0 unit 10/10/24 17:00 10/13/24 11:30 Insulin Lispro (Admelog) 1 Unit/0.01 Ml Unit SC 11/09/24 16:59 4 unit ACHS CASSY Administration Protocol Losartan Potassium 50 mg 10/10/24 09:30 10/10/24 10:15 Losartan Potassium 25 Mg Tablet PO 11/09/24 09:29 50 mg QDAY CASSY Administration Magnesium Hydroxide 30 ml 10/09/24 18:29 10/11/24 12:01 Milk Of Magnesia Susp 30 Ml Udc PO 11/08/24 18:28 30 ml QDAY PRN Administration CONSTIPATION Protocol Metoprolol Succinate 100 mg 10/13/24 09:00 10/13/24 08:35 Metoprolol Succinate Xl 25 Mg Tabcr PO 11/12/24 08:59 100 mg QDAY CASSY Administration Morphine Sulfate 2 mg 10/10/24 11:29 Morphine Sulf Inj 10 Mg/Ml Vial IVP 10/15/24 11:28 Q4HR PRN PAIN SCALE 7-10 (Severe Ondansetron HCl 4 mg 10/09/24 18:29 Ondansetron Inj 2 Mg/Ml Inj 2 Ml IV 11/08/24 18:28 Q6H PRN NAUSEA OR VOMITING Protocol Oxycodone/Acetaminophen 1 tab 10/10/24 11:26 10/13/24 10:38 Oxycodone/Apap 5/325 Tablet PO 10/15/24 11:25 1 tab Q6HR PRN Administration Pain 4-6 Rivaroxaban 15 mg 10/12/24 12:30 10/13/24 08:34 Rivaroxaban 10 Mg Tablet PO 11/11/24 12:29 15 mg BID CASSY Administration Plan A 58-year-old female who is morbidly obese, history of hypertension on losartan and hydrochlorothiazide presented to the hospital with chief complaints of pain, swelling and redness of left lower extremity since 1 week and admitted in the hospital for sepsis secondary to left lower extremity cellulitis. # Sepsis, resolved # Secondary to left lower extremity cellulitis # To rule out Osteomyelitis # Leukocytosis, this provider however -Came with complaint of lower extremity swelling, pain, redness since 5 days. -At the time of admission patient is found to have a temperature of 101 ?F, blood pressure 156/106 mmHg, pulse rate 150 bpm. SpO2 97% with room air -On examination, tenderness, localized rise of temperature with induration is noted in left lower extremity extending up to the knee. -Bilateral peripheral pulses are felt. -Labs showed WBC 20.7, ESR 93, CRP 28.3. Procalcitonin is 0.72 -Patient fits into sepsis criteria = fever 101 ?F, WBC 20.7, pulse rate 150+ cellulitis -Venous Doppler of bilateral lower extremity is negative for DVT -Foot x-ray showed soft tissue swelling without signs of osteomyelitis. -CT of bilateral lower extremity -Soft tissue defect lower leg adjacent to the distal fibula with periosteal new bone involving the fibula at this site consistent with early osteomyelitis -Blood cultures -no growth after 48 hours Plan -Vancomycin and zosyn is started [10/09 - 10/10] -Dr Mcginnis was consulted and recommended ceftriaxone 2 g IV daily and doxycycline 100 Mg twice daily instead of Vanco and Zosyn -Acetaminophen as needed is added -Dr. Lucia was consulted and recommended no surgery as of now in view of current patient condition -Dr. Thomas was consulted and recommended no active intervention as of now -MRI is still pending -Physical therapy is ordered, recommended that patient is safe to go home on discharge # New onset atrial fibrillation with rapid ventricular rate -- controlled ventricular rate -Presented with bilateral lower extremity swelling and shortness of breath for over months from now -Chest x-ray showed bilateral moderate vascular congestion with CHF pattern -[id number] score is 4 -ECHO - Normal LV size and function with an estimated EF of 50 to 55%. Mild LVH. Diastolic dysfunction indeterminate Normal RV size and function. Estimated RVSP, 47 mmHg. RAP 5. At least moderate PAH Mild MR and moderate TR. Rest of the valve structures not visualized appropriately well. Plan -Patient was started on metoprolol 100mg XL and xarelto as recommended by Dr. Barrios # Moderate pulmonary arterial hypertension likely secondary to LAISHA/OHS -Echo was done in view of A-fib, multiple cardiovascular risk factors and found to have pulmonary hypertension -STOP BANG score is 5, suggestive of LAISHA Plan -Recommended to follow-up in outpatient basis to get a sleep study # Newly diagnosed diabetes mellitus -HbA1c is 6.9 -Started on insulin sliding scale -Hypoglycemia protocol in place # Hyponatremia, resolved Likely due to decreased oral intake vs thiazide -Sodium at the time of admission is 128 and osmolality is 263 -Patient is using losartan and hydrochlorothiazide combination. -Patient appears euvolemic as of now -Sodium levels are within normal limits after the hospital admission -Stopped Hydrochlorthiazide -Will continue to monitor electrolytes and replete accordingly. # History of hypertension -Patient is using losartan and hydrochlorothiazide combination, continued losartan -Will monitor blood pressures for now and add medications as needed #Metabolic syndrome Morbid obesity+Hypertension+Diabetes Hospital Maintenance: Dispo: tele DVT ppx: xarelto GI ppx: Not needed Diet: low carb consistent IV lines: Peripheral Code status: Full code Patient plan of care was discussed with the attending physician, Dr. Emmanuel and senior resident Dr. Sandi Zamudio, PGY1 Attending Provider Attestation/Addendum I reviewed labs, imaging, EKG, home medications and prior available records. Face to face evaluation was performed by me. I have personally examined the patient and discussed assessment and plan with the IM team. I reviewed the resident note and agree with the plan with exceptions as below. Sepsis Left lower extremity osteomyelitis Cellulitis of left lower extremity Leukocytosis, nonspecific Atrial fibrillation with RVR Morbid obesity Changed to vancomycin/Zosyn to Rocephin and doxycycline per ID recommendations Status post arthrocentesis and removal of small amount of joint fluid. Sent for analysis. Follow-up MRI of the left lower extremity without contrast. Orthopedic surgery is following. Trend WBC: Downtrending Received IV diltiazem. Cardiology consulted. Switch to p.o. metoprolol XL. Echocardiogram ordered: Preserved EF with no pertinent findings. [id number] score is 3. Cardiology recommended Brilinta and Xarelto.
--- NOTE | 2024-10-13 13:05 | ESPR_ITS ---
Subjective Subjective Interval history: remains in house on high dose rocephin rx (per primary team) with po doxy Exam Vital Signs Temp Pulse Resp BP Pulse Ox O2 Del Method O2 Flow Rate 96.6 F L 75 18 114/79 94 L Nasal Cannula 1 10/13/24 08:00 10/13/24 08:35 10/13/24 08:00 10/13/24 08:35 10/13/24 08:00 10/13/24 08:00 10/13/24 08:00 Narrative Exam minimal L leg discoloration. stable lymphedema Objective - Internal Medicine Labs 10/13/24 05:11 10/13/24 05:11 Labs: Laboratory Results - last 24 hr 10/12/24 10/12/24 10/13/24 05:39 22:06 05:11 WBC 14.2 H RBC 4.18 Hgb 12.1 Hct 38.2 MCV 91 MCH 28.9 MCHC 31.7 RDW Std Deviation 46.1 Plt Count 249 Neut % (Auto) 74 Lymph % (Auto) 17 [place] % (Auto) 6 Eos % (Auto) 1 Baso % (Auto) 0 Neut # (Auto) 10.5 H Lymph # (Auto) 2.4 [place] # (Auto) 0.8 Eos # (Auto) 0.1 Baso # (Auto) 0.1 Immature Gran # (Auto) 0.39 H Absolute Nucleated RBC 0.00 Immature Gran % 3 H Nucleated RBC % 0 ESR 98 H Sodium 134 L Potassium 4.3 D Chloride 99 Carbon Dioxide 31.0 Anion Gap 4 L BUN 20 Creatinine 0.8 Estim Creat Clear Calc 127.2 eGFR > 60 BUN/Creatinine Ratio 25 H Glucose 128 H Calculated Osmolality 272 L Calcium 9.1 C-Reactive Prot, Quant 12.0 H Synovial Source Synovial Color Straw Synovial Appearance Cloudy Synovial WBC 88387 Synovial RBC 54461 Synov Polynuclear WBCs 90 Synov Mononuclear WBCs 10 HIV 1&2 Antibody Rapid Non-Reactive Assessment & Plan A&P Narrative L leg cellulitis hx of L leg surgery as a young woman hx of dm II, new hx of htn hx of lymphedema and obesity, BMI 66.2 noted control dm. use lymphedema prevention as best she can. support stockings bilaterally with athlete's foot cream to feet before stockings no rocephin 2 gm iv daily and po doxy 100 mg po bid for now. dx of osteo less clear as surgery on L leg was yrs ago. but ok to treat as such for now so rx for 6 weeks (thru 11/20) Time Spent With Patient Time: Total time spent is greater than 50% in coordination of care (as documented) at patient's floor/unit and/or counseling patient:
[2024-10-13] MEDS: INSULIN GLARGINE (Lantus) 5 UNIT/0.05 ML (PER 5 UNITS) 10 UNIT SC (21:34)
--- NOTE | 2024-10-13 22:40 | CONPN_ITS ---
Subjective Subjective Brief History: Patient is a 58-year-old who has had chronic lymphedema both lower extremities. She says her legs are like her mother's. She has had recurrent itching pruritus small ulcers both lower legs for quite some time. Approximately 5 days ago she developed pain in her left foot rapidly spreading to the left leg with marked increased swelling heat erythema Narrative: Less swelling, less pain Exam Vital Signs Temp Pulse Resp BP Pulse Ox O2 Del Method O2 Flow Rate 96.9 F 96 27 H 163/27 H 97 Nasal Cannula 1 10/13/24 20:00 10/13/24 20:00 10/13/24 20:00 10/13/24 20:00 10/13/24 20:00 10/13/24 20:00 10/13/24 20:00 Blood pressure 163/27 sure that is in the air Narrative Exam Less swelling noted. Less redness. She does have 2 bright areas proximal medial leg left lower extremity papular in nature. Bullae seem to be smaller Objective - Ortho Labs 10/13/24 05:11 10/13/24 05:11 Labs: Laboratory Results - last 24 hr 10/12/24 10/13/24 22:06 05:11 WBC 14.2 H RBC 4.18 Hgb 12.1 Hct 38.2 MCV 91 MCH 28.9 MCHC 31.7 RDW Std Deviation 46.1 Plt Count 249 Neut % (Auto) 74 Lymph % (Auto) 17 [place] % (Auto) 6 Eos % (Auto) 1 Baso % (Auto) 0 Neut # (Auto) 10.5 H Lymph # (Auto) 2.4 [place] # (Auto) 0.8 Eos # (Auto) 0.1 Baso # (Auto) 0.1 Immature Gran # (Auto) 0.39 H Absolute Nucleated RBC 0.00 Immature Gran % 3 H Nucleated RBC % 0 ESR 98 H Sodium 134 L Potassium 4.3 D Chloride 99 Carbon Dioxide 31.0 Anion Gap 4 L BUN 20 Creatinine 0.8 Estim Creat Clear Calc 127.2 eGFR > 60 BUN/Creatinine Ratio 25 H Glucose 128 H Calculated Osmolality 272 L Calcium 9.1 C-Reactive Prot, Quant 12.0 H Synovial Source Synovial Color Straw Synovial Appearance Cloudy Synovial WBC 97209 Synovial RBC 31296 Synov Polynuclear WBCs 90 Synov Mononuclear WBCs 10 White count 14,000, CRP 12 down from 29. Cell count from fluid aspirated ankle last night showed white count of 27,090% polys I requested culture it was not done labs said there was no request for culture. Assessment & Plan Assessment Additional comments: Still elevated white count. From what I can see no position to go home. Needs IV antibiotics. Continued severe edema. Dr Mcginnis talks about compression stockings. I think it is going to be difficult to fit her considering the massive size of calves. I am reconsulting Dr. Bowman about the blisters, if she thinks stockings can be fit. I am also concerned about skin irritation left second toe swollen and a little bit cyanotic towards the tip Plan Reconsult [facility]. Needs continued IV antibiotics from my standpoint. Do not send her home too soon. MRI scan shows activity superficial lateral malleolus. Dr. Kumari talked about soft tissue defect. There is no soft tissue defect other than what occurred many years ago at the time of surgery this is a chronic dimpling of the skin. Unlikely she would develop osteomyelitis in a period of [address] Looking forward to Dr. Bowman's review Documentation for date of: 10/13/24
--- NOTE | 2024-10-13 23:35 | PD.SUROPNT ---
Date of Procedure 10/13/24 Pre Op Diagnosis Infected left ankle bullae Post Op Diagnosis Same Procedure Debridement bulla left ankle Findings 2 bulla medial left ankle Procedure Description Patient was seen last night and using sterile technique the 2 bullae were aspirated. I thought I sent it for culture. The labs said all I requested was cell count. I came back and explained to the patient I did not get the culture I told her since I was a happily man I took responsibility for the oversight. I told her I wanted to debride the ulcer and see what it looked like underneath. Patient's left ankle was placed on a VERNA and using sterile technique the medial aspect of the ankle was treated with ChloraPrep. After waiting 3 minutes an incision was made in the bulla and no fluid was encountered. Each bulla was totally unroofed again no fluid was encountered the base of the bulla was cultured and I made sure we had the appropriate culture slip in the bag with the specimen. Sterile dressing was applied using Kerlix sponges 4 inch Kerlix roll and secured with tape will see her tomorrow. I have asked Dr. Bowman to take a look tomorrow I was asking her about whether the bulla should be debrided I did it tonight she does have a little bit of cyanosis of toes and ankle there is capillary fill. Interestingly there is a constriction because of the edema of the lower left leg which is considerably better and the foot is certainly looks better than the first several days that I have been seeing her I am looking forward to Dr. Bowman's comment on the circulation again the left second toe is just a tiny bit cyanotic with excellent flexion and extension of all 5 toes Anesthesia none Pathology / specimen None Pathology comment: None IVF Infused 0 Urine Output 0 Estimated Blood Loss 0 Condition Stable Disposition floor Surgeon Laith Lucia MD
--- NOTE | 2024-10-13 23:43 | PD.ADDPROG ---
Addendum Progress Note Addendum Date of report being addended: 10/13/24 Narrative: I found out that there was no culture done last night. I returned to see the patient and the bulla were both debrided. No fluid encountered. Culture done. I am looking forward to Dr. Bowman's comment on her left ankle and her cellulitis. I do not see any more bulla at the present time that need to be debrided
[2024-10-14] VITALS (10 sets, daily range): BP systolic 110–149; BP diastolic 67–103; PULSE 71–102; RESP 12–23; TEMP 35.8–36.3; O2SAT 91–98; BMI 68.7
[2024-10-14 06:01] LABS: Basophils # (Auto) 0.1 Thou/mm3 (0.0-0.2); Basophils % (Auto) 0 % (0-2.5); Eosinophils # (Auto) 0.1 Thou/mm3 (0.0-0.5); Eosinophils % (Auto) 1 % (0-10); Hematocrit 38.5 % (36.0-46.0); Hemoglobin 12.1 g/dL (12.0-16.0); Immature Granulocytes % (Auto) 3 % (0-0); Immature Granulocytes Auto 0.49 Thou/mm3 (0.00-0.00); Lymphocytes # (Auto) 2.3 Thou/mm3 (1.0-4.8); Lymphocytes % (Auto) 14 % (10-50); Mean Corpuscular HGB Conc 31.4 g/dl (31.0-37.0); Mean Corpuscular Hemoglobin 29.1 pg (25.0-35.0); Mean Corpuscular Volume 93 fL (80-100); Monocytes # (Auto) 0.9 Thou/mm3 (0.0-0.8); Monocytes % (Auto) 6 % (0-12); Neutrophils # (Auto) 12.8 Thou/mm3 (1.8-7.7); Neutrophils % (Auto) 77 % (37-80); Nucleated Red Blood Cell % 0 /100 WBC (0); Platelet Count 340 Thou/mm3 (140-440); RDW Standard Deviation 45.8 fL (36.4-46.3); Red Blood Count 4.16 Miln/mm3 (4.00-5.20); White Blood Count 16.7 Thou/mm3 (3.6-11.0)
[2024-10-14 06:27] LABS: Anion Gap 7 (7-16); BUN/Creatinine Ratio 35 Ratio (12-20); Blood Urea Nitrogen 21 mg/dL (9-23); Carbon Dioxide 30.2 mMol/L (20.0-31.0); Chloride 100 mMol/L (98-107); Creatinine (Component) 0.6 mg/dL (0.6-1.3); Estimated Creatinine Clearance 168.8 mL/min (>60); Glucose 123 mg/dL (74-106); Osmolality,Calculated 277 (275-295); Potassium 4.1 mMol/L (3.4-5.1); Sodium 137 mMol/L (136-145); eGFR > 60 See Note
[2024-10-14] MEDS: METOPROLOL SUCCINATE XL 25 MG TABCR 100 MG PO (08:08)
[2024-10-14] MEDS: cefTRIAXone 2 GM in SODIUM CHLORIDE 0.9% (P) 50 ML IV (08:09)
[2024-10-14] MEDS: oxyCODONE/APAP 5/325 TABLET 1 TAB PO ×2 (08:10→20:45)
[2024-10-14] MEDS: DOXYCYCLINE INJ 100 MG in SODIUM CHLORIDE 0.9% (P) 100 ML IV ×2 (08:44→20:36)
--- NOTE | 2024-10-14 09:29 | XR_ITS ---
Examination: Ultrasound-guided needle placement right brachial vein. Dual-lumen central line placement (PICC line). Fluoroscopy AP chest, portable, single view Exam date and time:October 14, 2024 1029 hours INDICATIONS: Need for long-term intravenous antibiotic therapy for osteomyelitis A timeout was completed verifying correct patient, procedure, site, positioning Informed consent provided Technique: The patient's site was prepped and draped in sterile fashion. Maximum Sterile Barrier Technique used including cap, mask, sterile gown, sterile gloves, and sterile full body drape. If ultrasound technique used: sterile gel and sterile probe covers. Hand Hygiene performed using proper scrub, soap and water, or alcohol-based hand rub. Site right portable apparatus utilized to confirm patency of the right brachial vein Utilizing ultrasonographic guidance successful 21-gauge needle puncture into the right brachial vein Ultrasound images recorded and stored. 5 cc 1% lidocaine administered for local anesthetic. Successful micropuncture with a 21-gauge needle is performed. 0.18 wire guide is then introduced into the SVC under fluoroscopic guidance. Dual-lumen catheter dilator is then introduced, followed by the catheter in the SVC and proper position under fluoroscopic guidance. Successful aspiration of blood and flushing with heparinized saline is then performed in the 2 venous limbs. The catheter sutured in place. Findings: Under fluoroscopy, the tip of the catheter is in good position in the vena cava. Portable chest x-ray, post line placement is ordered. Estimated blood loss 3 cc The patient tolerated the procedure well and was in stable and satisfactory condition at completion of the procedure Impression: Successful ultrasound-guided needle placement right brachial vein Successful placement of dual lumen central line, percutaneous Fluoroscopy 0.1 minute radiation dose 10.59 milligray 1 spot fluoroscopic chest. AP chest completion procedure demonstrates satisfactory position central line. May use central line.
--- NOTE | 2024-10-14 09:43 | PD.RESPRO ---
Documentation for date of: 10/14/24 Subjective Subjective Interval history: Patient was seen at bedside this morning. No overnight events. Patient appears to still be in A-fib, but is rate controlled Still pending repeat EKG. Patient does not have any cardiac complaints at this time. Potassium 3.5 and no magnesium today, recommend to keep potassium magnesium above 4 and 2 respectively to avoid any further arrhythmias. Recommend to continue patient on metoprolol XL 100 mg daily Recommend to continue patient on Xarelto for anticoagulation given weight Recommend to start patient on Lasix 40 mg daily as kidney function is stable, if BP allows Echo completed on 10/12/2024 had the following finding: Suboptimal images due to body habitus. Normal LV size and function with an estimated EF of 50 to 55%. Mild LVH. Diastolic dysfunction indeterminate Normal RV size and function. Estimated RVSP, 47 mmHg. RAP 5. At least moderate PAH. Mild MR and moderate TR. Rest of the valve structures not visualized appropriately well. Exam Vital Signs Temp Pulse Resp BP Pulse Ox O2 Del Method O2 Flow Rate 97.3 F 77 17 125/95 H 98 Nasal Cannula 2 10/14/24 07:55 10/14/24 08:08 10/14/24 07:55 10/14/24 08:08 10/14/24 07:55 10/14/24 07:55 10/14/24 07:55 Narrative Exam General: A/O x3, no acute distress, obese Eyes: PERRL, EOMI. Anicteric, vision grossly intact. Ears: No ear pain, no ear discharge, Hearing grossly intact. Nose: No nasal discharge. Mouth/Throat: Moist mucous membranes, no redness, no lesions. Neck: Neck supple, non-tender, no cervical lymphadenopathy. Lungs: Clear STEVE in upper lobes and decreased in Lower lobes likely due to body habitus, No accessory muscle use. Cardio: Normal S1/S2, regular rhythm, no murmurs, no JVD Abdomen: Soft, non-tender, no palpable masses, peristalsis present, no guarding or rebound. Extremities: Symmetrical, no significant deformities, 3+ peripheral edema , non-tender, peripheral pulses presents. Skin: No rashes, no lesions, warm to touch. multiple lesions in R and L LE. L LE swollen greater than R LE, L LE erythematous, slight improvement. Neuro: No focal neurological deficits. motor and sensory intact. Psych: Cooperative, appropriate mood and effect. Objective Labs 10/14/24 04:15 10/14/24 04:15 Labs: Laboratory Results - last 24 hr 10/14/24 04:15 WBC 16.7 H RBC 4.16 Hgb 12.1 Hct 38.5 MCV 93 MCH 29.1 MCHC 31.4 RDW Std Deviation 45.8 Plt Count 340 D Neut % (Auto) 77 Lymph % (Auto) 14 [place] % (Auto) 6 Eos % (Auto) 1 Baso % (Auto) 0 Neut # (Auto) 12.8 H Lymph # (Auto) 2.3 [place] # (Auto) 0.9 H Eos # (Auto) 0.1 Baso # (Auto) 0.1 Immature Gran # (Auto) 0.49 H Absolute Nucleated RBC 0.00 Immature Gran % 3 H Nucleated RBC % 0 Sodium 137 Potassium 4.1 Chloride 100 Carbon Dioxide 30.2 Anion Gap 7 BUN 21 Creatinine 0.6 Estim Creat Clear Calc 168.8 eGFR > 60 BUN/Creatinine Ratio 35 H Glucose 123 H Calculated Osmolality 277 Calcium 9.0 Quality Measures Quality Measures VTE prophylaxis (Lovenox) Assessment & Plan Assessment Current Active Medications: Generic Name Dose Route Start Last Admin Trade Name Freq PRN Reason Stop Dose Admin Acetaminophen 650 mg 10/10/24 09:29 10/10/24 10:16 Acetaminophen 325 Mg Tablet PO 11/08/24 18:28 650 mg Q6H PRN Administration Fever >100.1 Dextrose 50 ml 10/10/24 09:23 Dextrose 50%-Water Inj 50 Ml Syringe IV 11/09/24 09:22 Q15MIN PRN BG <50 OR BG <70 & pt unresponsive Dextrose 50 ml 10/10/24 13:38 Dextrose 50%-Water Inj 50 Ml Syringe IV 11/09/24 13:37 Q15MIN PRN BG <50 OR BG <70 & pt unresponsive Glucagon 1 mg 10/10/24 13:38 Glucagon Inj 1 Mg Vial IM Q15MIN PRN BG <70, and no IV access Doxycycline Hyclate 100 mg/ 100 mls @ 100 mls/hr 10/12/24 21:00 10/14/24 08:44 Sodium Chloride IV 10/19/24 20:59 100 mls/hr BID CASSY Administration Ceftriaxone Sodium 2 gm/ 50 mls @ 100 mls/hr 10/15/24 09:00 Sodium Chloride IV 10/22/24 08:59 QDAY CASSY Insulin Glargine 10 unit 10/10/24 21:00 10/13/24 21:34 Insulin Glargine (Lantus) 5 Unit/0.05 Ml (Per 5 Units) SC 11/09/24 20:59 10 unit HS CASSY Administration Insulin Human Lispro 0 unit 10/10/24 17:00 10/13/24 21:33 Insulin Lispro (Admelog) 1 Unit/0.01 Ml Unit SC 11/09/24 16:59 2 unit ACHS CASSY Administration Protocol Losartan Potassium 50 mg 10/14/24 09:45 Losartan Potassium 25 Mg Tablet PO 11/13/24 09:44 QDAY CASSY Magnesium Hydroxide 30 ml 10/09/24 18:29 10/11/24 12:01 Milk Of Magnesia Susp 30 Ml Udc PO 11/08/24 18:28 30 ml QDAY PRN Administration CONSTIPATION Protocol Metoprolol Succinate 100 mg 10/13/24 09:00 10/14/24 08:08 Metoprolol Succinate Xl 25 Mg Tabcr PO 11/12/24 08:59 100 mg QDAY CASSY Administration Morphine Sulfate 2 mg 10/10/24 11:29 Morphine Sulf Inj 10 Mg/Ml Vial IVP 10/15/24 11:28 Q4HR PRN PAIN SCALE 7-10 (Severe Ondansetron HCl 4 mg 10/09/24 18:29 Ondansetron Inj 2 Mg/Ml Inj 2 Ml IV 11/08/24 18:28 Q6H PRN NAUSEA OR VOMITING Protocol Oxycodone/Acetaminophen 1 tab 10/10/24 11:26 10/14/24 08:10 Oxycodone/Apap 5/325 Tablet PO 10/15/24 11:25 1 tab Q6HR PRN Administration Pain 4-6 Plan 58-year-old female with past medical history of essential hypertension, congestive heart failure, obesity, and chronic ulcers of lower extremities was admitted to hospital on 10/09/2024 due to sepsis likely secondary to left lower extremity cellulitis and A-fib with RVR. 1. A-fib with RVR ?Patient stated that she has been having some palpitations as of recently ? EKG showed A-fib with RVR ?[id number] score of 4 points indicating 4.8% risk of stroke per year. ?HAS-BLED score of 0, relatively low risk of major bleeding Plan: ?Recommend repeat EKG ?Recommend to continue patient on metoprolol XL 100 mg daily if blood pressure allows and stop diltiazem drip 2 hours after starting metoprolol XL. ?Recommend to continue patient on Xarelto for anticoagulation given weight ?Recommend to keep potassium and magnesium above 4 and 2 respectively to avoid any further arrhythmias 2. Acute decompensated heart failure exacerbation? 3. Essential hypertension ?Patient has been experiencing shortness of breath, orthopnea, and lower extremity swelling ? Patient does have a history of CHF, but there is no echo on file as patient is new to the hospital ?BNP was 227 on admission Plan: ?Recommend to start patient on Lasix 40 mg daily as kidney function is stable, if BP allows ?Will follow-up on echo ordered ? Strict ROBERTO's ? Low-sodium diet ? Daily weights ? Fluid restrictions ?Recommend to keep potassium and magnesium above 4 and 2 respectively to avoid any further arrhythmias 4. Sepsis likely secondary to left lower extremity cellulitis versus osteomyelitis ? Continue current management as per primary care team 5. DM2, newly diagnosed ? Continue current management as per primary care team 6. Hyponatremia ? Continue current management as per primary care team Continue rest of management as per primary team. We are grateful to be able to participate in Mrs. Heath's care. Thank you for the consult Plan of care discussed with attending Suction Plate Carrier Cleaner, Dr Sophie Mckeon MD PGY-1 Attending Provider Attestation/Addendum I have personally seen and examined the patient separately on the above date of service and discussed the plan of care with the resident. I reviewed the resident Dr. South consultation progress note and agree with the resident findings and plan in the note above and have also edited the documentation to reflect my findings and plan. Luis Barrios M.D. Interventional Cardiology
--- NOTE | 2024-10-14 09:47 | XR_ITS ---
Examination: Arterial duplex lower extremity study. Date and time of exam: October 14, 2024 1432 hours INDICATIONS: Bilateral leg swelling and pain beginning one week ago Findings: Duplex sonographic imaging of the lower extremity arteries using B-mode/Diaz scale imaging and Doppler spectral analysis and color flow. Right common femoral artery demonstrates triphasic flow. Right superficial femoral artery demonstrates triphasic flow. Right popliteal artery demonstrates triphasic flow. Right posterior tibial artery demonstrated triphasic flow. Left common femoral artery demonstrates biphasic flow. Left superficial femoral artery demonstrates monophasic flow. Left popliteal artery demonstrates monophasic flow. Left posterior tibial artery demonstrated monophasic flow. Impression: Significant left lower extremity obstructive arterial disease, consider correlation with CTA abdominal aorta iliofemoral runoff post intravenous contrast
[2024-10-14] MEDS: HEPARIN SOD LOCK SYR 100 UNIT/ML 500 UNIT STFIELD (10:45)
[2024-10-14] MEDS: LIDOCAINE INJ PF 1% 5 ML VIAL 4 ML INFL (11:25)
[2024-10-14] MEDS: INSULIN LISPRO (AdmeLOG) 1 UNIT/0.01 ML UNIT SC (12:00)
[2024-10-14] MEDS: LOSARTAN POTASSIUM 25 MG TABLET 50 MG PO (12:01)
--- NOTE | 2024-10-14 12:02 | PC.NURSE ---
Patient transferred to tele unit via gurney post PICC line insertion. Report given to SHIRLEY Prescott. Dressing clean, dry, and intact.
--- NOTE | 2024-10-14 16:00 | PC.SS ---
Follow up note: Patient received picc line. SS discussed with patient and family d/c plans. First choice is SNF. SS sent off inquiry through [employer]. Still pending if patient will d/c with i.v. antibiotics and duration. Pending Ortho rec's.
--- NOTE | 2024-10-14 16:09 | ESPR_ITS ---
Documentation for date of: 10/14/24 Subjective Subjective Interval history: Patient was seen and examined bedside. No complaints as of now. As repeat MRI showed signs of osteomyelitis and Dr Mcginnis also recommended 6 weeks of antibiotics, patient was scheduled for PICC line placement tomorrow by Dr. Paz Planning to discharge tomorrow after the PICC line placement to home with home health Recommended to follow-up in outpatient basis for management of diabetes. Also consulted Dr. Bowman and recommended no further interventions from general surgery perspective. Exam Vital Signs Temp Pulse Resp BP Pulse Ox O2 Del Method O2 Flow Rate 96.9 F 85 14 135/87 H 91 L Nasal Cannula 2 10/14/24 12:00 10/14/24 12:01 10/14/24 12:00 10/14/24 12:01 10/14/24 12:00 10/14/24 12:00 10/14/24 12:00 Narrative Exam General: Awake. Morbidly obese HEENT: Normocephalic, atraumatic, mucous membranes moist. Heart: Irregular rate and rhythm, no murmurs. Lungs: Clear to auscultation with no wheezing or crackles. Abdomen: Soft, nondistended, nontender, positive bowel sounds. ?No guarding or rebound tenderness. Neurologic: Alert and oriented x3, no gross neurological deficit, and patient able to move all 4 extremities. Extremities: Swelling and erythema decreased from the time of admission on left lower extremity. Multiple ulcers noted on bilateral lower extremity. deroofing of blisters was done. Skin: No rash or ecchymoses. A scar is noted on left lateral side of leg. Objective Labs 10/15/24 04:43 10/15/24 04:43 Labs: Laboratory Results - last 24 hr 10/14/24 04:15 WBC 16.7 H RBC 4.16 Hgb 12.1 Hct 38.5 MCV 93 MCH 29.1 MCHC 31.4 RDW Std Deviation 45.8 Plt Count 340 D Neut % (Auto) 77 Lymph % (Auto) 14 [place] % (Auto) 6 Eos % (Auto) 1 Baso % (Auto) 0 Neut # (Auto) 12.8 H Lymph # (Auto) 2.3 [place] # (Auto) 0.9 H Eos # (Auto) 0.1 Baso # (Auto) 0.1 Immature Gran # (Auto) 0.49 H Absolute Nucleated RBC 0.00 Immature Gran % 3 H Nucleated RBC % 0 Sodium 137 Potassium 4.1 Chloride 100 Carbon Dioxide 30.2 Anion Gap 7 BUN 21 Creatinine 0.6 Estim Creat Clear Calc 168.8 eGFR > 60 BUN/Creatinine Ratio 35 H Glucose 123 H Calculated Osmolality 277 Calcium 9.0 Quality Measures Quality Measures VTE prophylaxis (Lovenox) Assessment & Plan Assessment Current Active Medications: Generic Name Dose Route Start Last Admin Trade Name Freq PRN Reason Stop Dose Admin Acetaminophen 650 mg 10/10/24 09:29 10/10/24 10:16 Acetaminophen 325 Mg Tablet PO 11/08/24 18:28 650 mg Q6H PRN Administration Fever >100.1 Dextrose 50 ml 10/10/24 09:23 Dextrose 50%-Water Inj 50 Ml Syringe IV 11/09/24 09:22 Q15MIN PRN BG <50 OR BG <70 & pt unresponsive Dextrose 50 ml 10/10/24 13:38 Dextrose 50%-Water Inj 50 Ml Syringe IV 11/09/24 13:37 Q15MIN PRN BG <50 OR BG <70 & pt unresponsive Glucagon 1 mg 10/10/24 13:38 Glucagon Inj 1 Mg Vial IM Q15MIN PRN BG <70, and no IV access Doxycycline Hyclate 100 mg/ 100 mls @ 100 mls/hr 10/12/24 21:00 10/14/24 08:44 Sodium Chloride IV 10/19/24 20:59 100 mls/hr BID CASSY Administration Ceftriaxone Sodium 2 gm/ 50 mls @ 100 mls/hr 10/15/24 09:00 Sodium Chloride IV 10/22/24 08:59 QDAY CASSY Insulin Glargine 10 unit 10/10/24 21:00 10/13/24 21:34 Insulin Glargine (Lantus) 5 Unit/0.05 Ml (Per 5 Units) SC 11/09/24 20:59 10 unit HS CASSY Administration Insulin Human Lispro 0 unit 10/10/24 17:00 10/14/24 12:00 Insulin Lispro (Admelog) 1 Unit/0.01 Ml Unit SC 11/09/24 16:59 2 unit ACHS CASSY Administration Protocol Losartan Potassium 50 mg 10/14/24 09:45 10/14/24 12:01 Losartan Potassium 25 Mg Tablet PO 11/13/24 09:44 50 mg QDAY CASSY Administration Magnesium Hydroxide 30 ml 10/09/24 18:29 10/11/24 12:01 Milk Of Magnesia Susp 30 Ml Udc PO 11/08/24 18:28 30 ml QDAY PRN Administration CONSTIPATION Protocol Metoprolol Succinate 100 mg 10/13/24 09:00 10/14/24 08:08 Metoprolol Succinate Xl 25 Mg Tabcr PO 11/12/24 08:59 100 mg QDAY CASSY Administration Morphine Sulfate 2 mg 10/10/24 11:29 Morphine Sulf Inj 10 Mg/Ml Vial IVP 10/15/24 11:28 Q4HR PRN PAIN SCALE 7-10 (Severe Ondansetron HCl 4 mg 10/09/24 18:29 Ondansetron Inj 2 Mg/Ml Inj 2 Ml IV 11/08/24 18:28 Q6H PRN NAUSEA OR VOMITING Protocol Oxycodone/Acetaminophen 1 tab 10/10/24 11:26 10/14/24 08:10 Oxycodone/Apap 5/325 Tablet PO 10/15/24 11:25 1 tab Q6HR PRN Administration Pain 4-6 Plan A 58-year-old female who is morbidly obese, history of hypertension on losartan and hydrochlorothiazide presented to the hospital with chief complaints of pain, swelling and redness of left lower extremity since 1 week and admitted in the hospital for sepsis secondary to left lower extremity cellulitis. # Sepsis, resolved # Secondary to left lower extremity cellulitis # To rule out Osteomyelitis # Leukocytosis, this provider however -Came with complaint of lower extremity swelling, pain, redness since 5 days. -At the time of admission patient is found to have a temperature of 101 ?F, blood pressure 156/106 mmHg, pulse rate 150 bpm. SpO2 97% with room air -On examination, tenderness, localized rise of temperature with induration is noted in left lower extremity extending up to the knee. -Bilateral peripheral pulses are felt. -Labs showed WBC 20.7, ESR 93, CRP 28.3. Procalcitonin is 0.72 -Patient fits into sepsis criteria = fever 101 ?F, WBC 20.7, pulse rate 150+ cellulitis -Venous Doppler of bilateral lower extremity is negative for DVT -Foot x-ray showed soft tissue swelling without signs of osteomyelitis. -CT of bilateral lower extremity -Soft tissue defect lower leg adjacent to the distal fibula with periosteal new bone involving the fibula at this site consistent with early osteomyelitis -Blood cultures -no growth after 48 hours -MRI of left lower extremity- Early osteomyelitis distal lateral fibular shaft Plan -Vancomycin and zosyn is started [10/09 - 10/10] -Dr Mcginnis was consulted and recommended ceftriaxone 2 g IV daily and doxycycline 100 Mg twice daily instead of Vanco and Zosyn -Acetaminophen as needed is added -Dr. Lucia was consulted and recommended no surgery as of now in view of current patient condition and did the zora of the blisters on medial aspect of left lower extremity. -Dr. Thomas was consulted and recommended no active intervention as of now -Physical therapy is ordered, recommended that patient is safe to go home on discharge # New onset atrial fibrillation with rapid ventricular rate -- controlled ventricular rate -Presented with bilateral lower extremity swelling and shortness of breath for over months from now -Chest x-ray showed bilateral moderate vascular congestion with CHF pattern -[id number]-MOLu score is 4 -ECHO - Normal LV size and function with an estimated EF of 50 to 55%. Mild LVH. Diastolic dysfunction indeterminate Normal RV size and function. Estimated RVSP, 47 mmHg. RAP 5. At least moderate PAH Mild MR and moderate TR. Rest of the valve structures not visualized appropriately well. Plan -Patient was started on metoprolol 100mg XL and xarelto as recommended by Dr. Barrios -Held Xarelto till tomorrow in view of PICC line placement. # Moderate pulmonary arterial hypertension likely secondary to LAISHA/OHS -Echo was done in view of A-fib, multiple cardiovascular risk factors and found to have pulmonary hypertension -STOP BANG score is 5, suggestive of LAISHA Plan -Recommended to follow-up in outpatient basis to get a sleep study # Newly diagnosed diabetes mellitus -HbA1c is 6.9 -Started on insulin sliding scale -Hypoglycemia protocol in place # Hyponatremia, resolved Likely due to decreased oral intake vs thiazide -Sodium at the time of admission is 128 and osmolality is 263 -Patient is using losartan and hydrochlorothiazide combination. -Patient appears euvolemic as of now -Sodium levels are within normal limits after the hospital admission -Stopped Hydrochlorthiazide -Will continue to monitor electrolytes and replete accordingly. # History of hypertension -Patient is using losartan and hydrochlorothiazide combination, continued losartan -Will monitor blood pressures for now and add medications as needed #Metabolic syndrome Morbid obesity+Hypertension+Diabetes Hospital Maintenance: Dispo: tele DVT ppx: xarelto, held GI ppx: Not needed Diet: low carb consistent IV lines: Peripheral Code status: Full code Patient plan of care was discussed with the attending physician, Dr. Emmanuel and senior resident Dr. Sandi Zamudio, PGY1 Attending Provider Attestation/Addendum I reviewed labs, imaging, EKG, home medications and prior available records. Face to face evaluation was performed by me. I have personally examined the patient and discussed assessment and plan with the IM team. I reviewed the resident note and agree with the plan with exceptions as below. Sepsis Left lower extremity osteomyelitis Cellulitis of left lower extremity Leukocytosis, nonspecific Atrial fibrillation with RVR Morbid obesity Changed to vancomycin/Zosyn to Rocephin and doxycycline per ID recommendations until 11/20. PICC line ordered. Status post arthrocentesis and removal of small amount of joint fluid. Sent for analysis. Status post debridement of left ankle bulla. Continue wound care. Follow-up MRI of the left lower extremity without contrast: Did show early osteomyelitis. Orthopedic surgery is following. Reconsulted Dr. Thomas: No indication for surgery. Trend WBC: Downtrending Continue metoprolol XL. Echocardiogram ordered: Preserved EF with no pertinent findings. [id number] score is 3. Cardiology recommended Brilinta and Xarelto.
--- NOTE | 2024-10-14 20:20 | PD.SURPROG ---
Documentation for date of: 10/14/24 Subjective Subjective Brief History: 58F with HTN, morbid obesity and lymphedema admitted 10/09 with LLE cellulitis. Pt has had WBC in 20s, CT showing extensive edema and possible osteomyelitis, MRI pending Narrative: Reports improved pain in LLE today, no new complaints Exam Vital Signs Temp Pulse Resp BP Pulse Ox O2 Del Method O2 Flow Rate 97.4 F 78 22 H 110/67 98 Nasal Cannula 1 10/14/24 20:00 10/14/24 20:00 10/14/24 20:00 10/14/24 20:00 10/14/24 20:00 10/14/24 20:00 10/14/24 20:00 Constitutional Constitutional: no acute distress Routine Respiratory Exam Respiratory: Present no resp distress Routine Extremities Exam Comments: significantly improved erythema of LLE, no abscess, no necrotic tissue Results Results: Laboratory Laboratory results: results reviewed Results: Imaging Imaging narrative: RACHEL PVR reviewed Assessment & Plan Plan 58F with HTN, obesity and lymphedema presenting with LLE celluitis and early osteomyelitis of the distal lateral fibular shaft, with improved erythema and no necrotic tissue not requiring amputation. RACHEL PVR showed PAD of LLE which should be addressed by a vascular surgeon No general surgery intervention required Procedures Procedures Debridement bulla left ankle
[2024-10-14] MEDS: INSULIN GLARGINE (Lantus) 5 UNIT/0.05 ML (PER 5 UNITS) 10 UNIT SC (20:37)
--- NOTE | 2024-10-14 22:56 | CONPN_ITS ---
Subjective Subjective Brief History: Patient is a 58-year-old who has had chronic lymphedema both lower extremities. She says her legs are like her mother's. She has had recurrent itching pruritus small ulcers both lower legs for quite some time. Approximately 5 days ago she developed pain in her left foot rapidly spreading to the left leg with marked increased swelling heat erythema Narrative: Patient is feeling better. She got the PICC line today. Exam Vital Signs Temp Pulse Resp BP Pulse Ox O2 Del Method O2 Flow Rate 97.4 F 78 22 H 110/67 98 Nasal Cannula 1 10/14/24 20:00 10/14/24 20:00 10/14/24 20:00 10/14/24 20:00 10/14/24 20:00 10/14/24 20:00 10/14/24 20:00 Vital signs temp 97.4. Blood pressure 110/67 Narrative Exam Swelling down the left lower extremity. Toes look better. Less swelling second toe Objective - Ortho Labs 10/14/24 04:15 10/14/24 04:15 Labs: Laboratory Results - last 24 hr 10/14/24 04:15 WBC 16.7 H RBC 4.16 Hgb 12.1 Hct 38.5 MCV 93 MCH 29.1 MCHC 31.4 RDW Std Deviation 45.8 Plt Count 340 D Neut % (Auto) 77 Lymph % (Auto) 14 [place] % (Auto) 6 Eos % (Auto) 1 Baso % (Auto) 0 Neut # (Auto) 12.8 H Lymph # (Auto) 2.3 [place] # (Auto) 0.9 H Eos # (Auto) 0.1 Baso # (Auto) 0.1 Immature Gran # (Auto) 0.49 H Absolute Nucleated RBC 0.00 Immature Gran % 3 H Nucleated RBC % 0 Sodium 137 Potassium 4.1 Chloride 100 Carbon Dioxide 30.2 Anion Gap 7 BUN 21 Creatinine 0.6 Estim Creat Clear Calc 168.8 eGFR > 60 BUN/Creatinine Ratio 35 H Glucose 123 H Calculated Osmolality 277 Calcium 9.0 White count is gone from 14,000-16,000 she is on a cephalosporin I have seen white counts go up because of reactions to cephalosporin. Assessment & Plan Assessment Additional comments: Patient admitted with cellulitis. There is concerned about her distal left fibula (lateral malleolus). If we see has osteomyelitis committed to 6 weeks of therapy. I will talk to Dr. Kumari tomorrow if there is any other way we could elucidate whether or not this represents bone infection. I am leaving on vacation Plan I will ask Dr. Suh to take a look. I will talk to Dr. Rider about any additional studies. 6 weeks of IV antibiotics I am sure is not completely risk- free. Asking Dr Mcginnis about the elevating white count. Could be reaction to the IV antibiotic. She would benefit from a repeat CRP, ESR, procalcitonin I know Dr Mcginnis is said these always follow in many respects are not predictive I am really going to be interested about her white count tomorrow. Documentation for date of: 10/14/24
[2024-10-15] VITALS (8 sets, daily range): BP systolic 102–139; BP diastolic 71–94; PULSE 68–87; RESP 17–23; TEMP 35.9–36.3; O2SAT 92–98; BMI 68.7; BMI 13.0
[2024-10-15 05:47] LABS: Basophils # (Auto) 0.1 Thou/mm3 (0.0-0.2); Basophils % (Auto) 0 % (0-2.5); Eosinophils # (Auto) 0.1 Thou/mm3 (0.0-0.5); Eosinophils % (Auto) 1 % (0-10); Hematocrit 38.5 % (36.0-46.0); Hemoglobin 11.9 g/dL (12.0-16.0); Immature Granulocytes % (Auto) 2 % (0-0); Immature Granulocytes Auto 0.32 Thou/mm3 (0.00-0.00); Lymphocytes # (Auto) 2.5 Thou/mm3 (1.0-4.8); Lymphocytes % (Auto) 18 % (10-50); Mean Corpuscular HGB Conc 30.9 g/dl (31.0-37.0); Mean Corpuscular Hemoglobin 28.9 pg (25.0-35.0); Mean Corpuscular Volume 93 fL (80-100); Monocytes # (Auto) 0.7 Thou/mm3 (0.0-0.8); Monocytes % (Auto) 5 % (0-12); Neutrophils # (Auto) 10.4 Thou/mm3 (1.8-7.7); Neutrophils % (Auto) 74 % (37-80); Nucleated Red Blood Cell % 0 /100 WBC (0); Platelet Count 298 Thou/mm3 (140-440); RDW Standard Deviation 45.2 fL (36.4-46.3); Red Blood Count 4.12 Miln/mm3 (4.00-5.20)
[2024-10-15 06:18] LABS: Anion Gap 2 (7-16); BUN/Creatinine Ratio 23 Ratio (12-20); Blood Urea Nitrogen 18 mg/dL (9-23); Calcium 8.7 mg/dL (8.3-10.6); Carbon Dioxide 35.2 mMol/L (20.0-31.0); Chloride 100 mMol/L (98-107); Creatinine (Component) 0.8 mg/dL (0.6-1.3); Estimated Creatinine Clearance 126.6 mL/min (>60); Glucose 123 mg/dL (74-106); Osmolality,Calculated 276 (275-295); Sodium 137 mMol/L (136-145); eGFR > 60 See Note
--- NOTE | 2024-10-15 07:07 | ESPR_ITS ---
Subjective Subjective Interval history: still here. wbc is checked daily by hospitalist teams, that is not a recommended strategy but sometimes has a life of its own Exam Vital Signs Temp Pulse Resp BP Pulse Ox O2 Del Method O2 Flow Rate 97.3 F 68 20 116/94 H 95 Nasal Cannula 1 10/15/24 04:00 10/15/24 04:00 10/15/24 04:00 10/15/24 04:00 10/15/24 04:00 10/15/24 04:00 10/15/24 04:00 Narrative Exam limited visit Objective - Internal Medicine Labs 10/15/24 04:43 10/15/24 04:43 Labs: Laboratory Results - last 24 hr 10/15/24 04:43 WBC 14.0 H RBC 4.12 Hgb 11.9 L Hct 38.5 MCV 93 MCH 28.9 MCHC 30.9 L RDW Std Deviation 45.2 Plt Count 298 D Neut % (Auto) 74 Lymph % (Auto) 18 [place] % (Auto) 5 Eos % (Auto) 1 Baso % (Auto) 0 Neut # (Auto) 10.4 H Lymph # (Auto) 2.5 [place] # (Auto) 0.7 Eos # (Auto) 0.1 Baso # (Auto) 0.1 Immature Gran # (Auto) 0.32 H Absolute Nucleated RBC 0.00 Immature Gran % 2 H Nucleated RBC % 0 Sodium 137 Potassium 5.0 D Chloride 100 Carbon Dioxide 35.2 H Anion Gap 2 L BUN 18 Creatinine 0.8 Estim Creat Clear Calc 126.6 eGFR > 60 BUN/Creatinine Ratio 23 H Glucose 123 H Calculated Osmolality 276 Calcium 8.7 Assessment & Plan A&P Narrative 58-year-old female with past medical history of essential hypertension, congestive heart failure, obesity, and chronic ulcers of lower extremities was admitted to hospital on 10/09/2024 due to sepsis likely secondary to left lower extremity cellulitis and A-fib with RVR. 1. A-fib with RVR new onset 2. Acute on chronic HFpEF exacerbation 3. Moderate pulmonary hypertension 4. Sepsis likely secondary to left lower extremity cellulitis versus osteomyelitis 5. Essential hypertension 6. DM2, newly diagnosed 7. Morbid obesity with BMI greater than 66 8. Hyponatremia 9. Chronic lymphedema of bilateral legs 10. Chronic ulcers of bilateral lower extremities with active infection of the left foot right now 11. Sleep apnea Lleg cellulitis lymphedema htn ok for rocephin 2 gm iv daily thru 11/20 and doxy 100 mg po bid for same duration rx is empirical. f/u with outpt primary as I can not see her encourage edema control strategies Time Spent With Patient Time: Total time spent is greater than 50% in coordination of care (as documented) at patient's floor/unit and/or counseling patient:
[2024-10-15] MEDS: oxyCODONE/APAP 5/325 TABLET 1 TAB PO ×2 (07:32→20:27)
--- NOTE | 2024-10-15 08:46 | ESPR_ITS ---
Documentation for date of: 10/15/24 Subjective Subjective Interval history: Patient was seen and examined bedside. PICC line was inserted. Still in A-fib. No new complaints. Waiting for Dr. Lucia's recommendations. Exam Vital Signs Temp Pulse Resp BP Pulse Ox O2 Del Method O2 Flow Rate 96.7 F L 93 14 114/81 94 L Room Air 1 10/16/24 04:00 10/16/24 08:36 10/16/24 04:00 10/16/24 08:36 10/16/24 04:00 10/16/24 04:00 10/15/24 16:00 Narrative Exam General: Awake. Morbidly obese HEENT: Normocephalic, atraumatic, mucous membranes moist. Heart: Irregular rate and rhythm, no murmurs. Lungs: Clear to auscultation with no wheezing or crackles. Abdomen: Soft, nondistended, nontender, positive bowel sounds. ?No guarding or rebound tenderness. Neurologic: Alert and oriented x3, no gross neurological deficit, and patient able to move all 4 extremities. Extremities: Swelling and erythema decreased from the time of admission on left lower extremity. Multiple ulcers noted on bilateral lower extremity. deroofing of blisters was done. Skin: No rash or ecchymoses. A scar is noted on left lateral side of leg. Objective Labs 10/16/24 04:25 10/16/24 04:25 Labs: Laboratory Results - last 24 hr 10/16/24 04:25 WBC 12.1 H RBC 4.17 Hgb 12.2 Hct 38.9 MCV 93 MCH 29.3 MCHC 31.4 RDW Std Deviation 45.3 Plt Count 358 D Neut % (Auto) 72 Lymph % (Auto) 19 [place] % (Auto) 6 Eos % (Auto) 1 Baso % (Auto) 0 Neut # (Auto) 8.7 H Lymph # (Auto) 2.3 [place] # (Auto) 0.7 Eos # (Auto) 0.1 Baso # (Auto) 0.1 Immature Gran # (Auto) 0.21 H Absolute Nucleated RBC 0.00 Immature Gran % 2 H Nucleated RBC % 0 Sodium 137 Potassium 4.9 Chloride 100 Carbon Dioxide 34.1 H Anion Gap 3 L BUN 18 Creatinine 0.7 Estim Creat Clear Calc 145.8 eGFR > 60 BUN/Creatinine Ratio 26 H Glucose 119 H Calculated Osmolality 276 Calcium 8.6 Quality Measures Quality Measures VTE prophylaxis (Lovenox) Assessment & Plan Assessment Current Active Medications: Generic Name Dose Route Start Last Admin Trade Name Christiano PRN Reason Stop Dose Admin Acetaminophen 650 mg 10/10/24 09:29 10/10/24 10:16 Acetaminophen 325 Mg Tablet PO 11/08/24 18:28 650 mg Q6H PRN Administration Fever >100.1 Aspirin 81 mg 10/15/24 09:00 10/16/24 08:37 Aspirin Ec 81 Mg Tabec PO 11/14/24 08:59 81 mg QDAY CASSY Administration Dextrose 50 ml 10/10/24 09:23 Dextrose 50%-Water Inj 50 Ml Syringe IV 11/09/24 09:22 Q15MIN PRN BG <50 OR BG <70 & pt unresponsive Dextrose 50 ml 10/10/24 13:38 Dextrose 50%-Water Inj 50 Ml Syringe IV 11/09/24 13:37 Q15MIN PRN BG <50 OR BG <70 & pt unresponsive Doxycycline Hyclate 100 mg 10/15/24 09:00 10/16/24 08:36 Doxycycline 100 Mg Tablet PO 11/20/24 12:00 100 mg BID CSASY Administration Furosemide 40 mg 10/16/24 09:00 10/16/24 08:36 Furosemide 40 Mg Tablet PO 11/15/24 08:59 40 mg QDAY CASSY Administration Glucagon 1 mg 10/10/24 13:38 Glucagon Inj 1 Mg Vial IM Q15MIN PRN BG <70, and no IV access Ceftriaxone Sodium 2 gm/ 50 mls @ 100 mls/hr 10/15/24 09:00 10/16/24 08:34 Sodium Chloride IV 10/22/24 08:59 100 mls/hr QDAY CASSY Administration Insulin Glargine 10 unit 10/10/24 21:00 10/15/24 20:27 Insulin Glargine (Lantus) 5 Unit/0.05 Ml (Per 5 Units) SC 11/09/24 20:59 10 unit HS CASSY Administration Insulin Human Lispro 0 unit 10/10/24 17:00 10/16/24 08:20 Insulin Lispro (Admelog) 1 Unit/0.01 Ml Unit SC 11/09/24 16:59 Not Given ACHS [facility] Protocol Losartan Potassium 50 mg 10/14/24 09:45 10/16/24 08:36 Losartan Potassium 25 Mg Tablet PO 11/13/24 09:44 50 mg QDAY CASSY Administration Magnesium Hydroxide 30 ml 10/09/24 18:29 10/15/24 21:27 Milk Of Magnesia Susp 30 Ml Udc PO 11/08/24 18:28 30 ml QDAY PRN Administration CONSTIPATION Protocol Metoprolol Succinate 100 mg 10/13/24 09:00 10/16/24 08:35 Metoprolol Succinate Xl 25 Mg Tabcr PO 11/12/24 08:59 100 mg QDAY CASSY Administration Ondansetron HCl 4 mg 10/09/24 18:29 Ondansetron Inj 2 Mg/Ml Inj 2 Ml IV 11/08/24 18:28 Q6H PRN NAUSEA OR VOMITING Protocol Rivaroxaban 10 mg/ Rivaroxaban 15 mg 10/15/24 09:00 10/16/24 08:36 5 mg PO 11/14/24 08:59 15 mg BID CASSY Administration Protocol Plan A 58-year-old female who is morbidly obese, history of hypertension on losartan and hydrochlorothiazide presented to the hospital with chief complaints of pain, swelling and redness of left lower extremity since 1 week and admitted in the hospital for sepsis secondary to left lower extremity cellulitis. # Sepsis, resolved # Secondary to left lower extremity cellulitis # To rule out Osteomyelitis # Leukocytosis, resolving -Came with complaint of lower extremity swelling, pain, redness since 5 days. -At the time of admission patient is found to have a temperature of 101 ?F, blood pressure 156/106 mmHg, pulse rate 150 bpm. SpO2 97% with room air -On examination, tenderness, localized rise of temperature with induration is noted in left lower extremity extending up to the knee. -Bilateral peripheral pulses are felt. -Labs showed WBC 20.7, ESR 93, CRP 28.3. Procalcitonin is 0.72 -Patient fits into sepsis criteria = fever 101 ?F, WBC 20.7, pulse rate 150+ cellulitis -Venous Doppler of bilateral lower extremity is negative for DVT -Foot x-ray showed soft tissue swelling without signs of osteomyelitis. -CT of bilateral lower extremity -Soft tissue defect lower leg adjacent to the distal fibula with periosteal new bone involving the fibula at this site consistent with early osteomyelitis -Blood cultures -no growth after 48 hours -MRI of left lower extremity- Early osteomyelitis distal lateral fibular shaft Plan -Vancomycin and zosyn is started [10/09 - 10/10] -Dr Mcginnis was consulted and recommended ceftriaxone 2 g IV daily and doxycycline 100 Mg twice daily instead of Vanco and Zosyn -Acetaminophen as needed is added -Dr. Lucia was consulted and recommended no surgery as of now in view of current patient condition and did the zora of the blisters on medial aspect of left lower extremity. -Dr. Thomas was consulted and recommended no active intervention as of now -Physical therapy is ordered, recommended that patient is safe to go home on discharge # New onset atrial fibrillation with rapid ventricular rate -- controlled ventricular rate -Presented with bilateral lower extremity swelling and shortness of breath for over months from now -Chest x-ray showed bilateral moderate vascular congestion with CHF pattern -[id number] score is 4 -ECHO - Normal LV size and function with an estimated EF of 50 to 55%. Mild LVH. Diastolic dysfunction indeterminate Normal RV size and function. Estimated RVSP, 47 mmHg. RAP 5. At least moderate PAH Mild MR and moderate TR. Rest of the valve structures not visualized appropriately well. Plan -Patient was started on metoprolol 100mg XL and xarelto as recommended by Dr. Barrios # Moderate pulmonary arterial hypertension likely secondary to LAISHA/OHS -Echo was done in view of A-fib, multiple cardiovascular risk factors and found to have pulmonary hypertension -STOP BANG score is 5, suggestive of LAISHA Plan -Recommended to follow-up in outpatient basis to get a sleep study # Newly diagnosed diabetes mellitus -HbA1c is 6.9 -Started on insulin sliding scale -Hypoglycemia protocol in place # Hyponatremia, resolved Likely due to decreased oral intake vs thiazide -Sodium at the time of admission is 128 and osmolality is 263 -Patient is using losartan and hydrochlorothiazide combination. -Patient appears euvolemic as of now -Sodium levels are within normal limits after the hospital admission -Stopped Hydrochlorthiazide -Will continue to monitor electrolytes and replete accordingly. # History of hypertension -Patient is using losartan and hydrochlorothiazide combination, continued losartan -Will monitor blood pressures for now and add medications as needed #Metabolic syndrome Morbid obesity+Hypertension+Diabetes # Peripheral arterial disease -Arterial Doppler of lower extremity showed suspected PAD -Recommended CTA of lower extremities -Recommended patient to follow-up in the outpatient basis for further investigations. -Will continue aspirin. Hospital Maintenance: Dispo: tele DVT ppx: xarelto GI ppx: Not needed Diet: low carb consistent IV lines: Peripheral Code status: Full code Patient plan of care was discussed with the attending physician, Dr. Cholo Zamudio, PGY1 Attending Provider Attestation/Addendum I reviewed labs, imaging, EKG, home medications and prior available records. Face to face evaluation was performed by me. I have personally examined the patient and discussed assessment and plan with the IM team. I reviewed the resident note and agree with the plan with exceptions as below. Sepsis Left lower extremity osteomyelitis Cellulitis of left lower extremity Leukocytosis, nonspecific Atrial fibrillation with RVR Morbid obesity Changed to vancomycin/Zosyn to Rocephin and doxycycline per ID recommendations until 11/20. PICC line ordered. Status post arthrocentesis and removal of small amount of joint fluid. Status post debridement of left ankle bulla. Continue wound care. Follow-up MRI of the left lower extremity without contrast: Did show early osteomyelitis. Orthopedic surgery is following. Reconsulted Dr. Thomas: No indication for surgery. Orthopedic surgery recommended second opinion from Dr. Ordonez. Trend WBC: Downtrending Continue metoprolol XL. Echocardiogram ordered: Preserved EF with no pertinent findings. [id number] score is 3. Cardiology recommended Brilinta and Xarelto.
--- NOTE | 2024-10-15 08:56 | PC.SS ---
Follow up note: Patient will need i.v. rocephin daily. [facility] and will update me today. Patient is medically ready for d/c. Patient wants to know if there will be any out of pocket cost before deciding if she prefers vs SNF.
[2024-10-15] MEDS: LOSARTAN POTASSIUM 25 MG TABLET 50 MG PO (09:53)
[2024-10-15] MEDS: METOPROLOL SUCCINATE XL 25 MG TABCR 100 MG PO (09:53)
[2024-10-15] MEDS: ASPIRIN EC 81 MG TABEC PO (09:53)
[2024-10-15] MEDS: DOXYCYCLINE 100 MG TABLET PO ×2 (09:53→20:27)
[2024-10-15] MEDS: RIVAROXABAN 10 MG, RIVAROXABAN 5 MG 15 MG PO ×2 (09:53→20:26)
[2024-10-15] MEDS: cefTRIAXone 2 GM in SODIUM CHLORIDE 0.9% (P) 50 ML IV (09:54)
--- NOTE | 2024-10-15 10:39 | PD.RESPRO ---
Documentation for date of: 10/15/24 Subjective Subjective Interval history: Patient was seen at bedside this morning. No overnight events. Patient appears to still be in A-fib, but is rate controlled Still no repeat EKG. Patient does not have any cardiac complaints at this time. Potassium 5 and no magnesium again today, recommend to keep potassium magnesium above 4 and 2 respectively to avoid any further arrhythmias. Recommend to continue patient on metoprolol XL 100 mg daily Recommend to continue patient on Xarelto for anticoagulation given weight Recommend to start patient on Lasix 40 mg daily as kidney function is stable, if BP allows Echo completed on 10/12/2024 had the following finding: Suboptimal images due to body habitus. Normal LV size and function with an estimated EF of 50 to 55%. Mild LVH. Diastolic dysfunction indeterminate Normal RV size and function. Estimated RVSP, 47 mmHg. RAP 5. At least moderate PAH. Mild MR and moderate TR. Rest of the valve structures not visualized appropriately well. Exam Vital Signs Temp Pulse Resp BP Pulse Ox O2 Del Method O2 Flow Rate 96.9 F 78 19 139/84 H 98 Nasal Cannula 1 10/15/24 07:58 10/15/24 09:53 10/15/24 07:58 10/15/24 09:53 10/15/24 07:58 10/15/24 07:58 10/15/24 07:58 Narrative Exam General: A/O x3, no acute distress, obese Eyes: PERRL, EOMI. Anicteric, vision grossly intact. Ears: No ear pain, no ear discharge, Hearing grossly intact. Nose: No nasal discharge. Mouth/Throat: Moist mucous membranes, no redness, no lesions. Neck: Neck supple, non-tender, no cervical lymphadenopathy. Lungs: Clear STEVE in upper lobes and decreased in Lower lobes likely due to body habitus, No accessory muscle use. Cardio: Normal S1/S2, regular rhythm, no murmurs, no JVD Abdomen: Soft, non-tender, no palpable masses, peristalsis present, no guarding or rebound. Extremities: Symmetrical, no significant deformities, 3+ peripheral edema , non-tender, peripheral pulses presents. Skin: No rashes, no lesions, warm to touch. multiple lesions in R and L LE. L LE swollen greater than R LE, L LE erythematous, slight improvement. Neuro: No focal neurological deficits. motor and sensory intact. Psych: Cooperative, appropriate mood and effect. Objective Labs 10/15/24 04:43 10/15/24 04:43 Labs: Laboratory Results - last 24 hr 10/15/24 04:43 WBC 14.0 H RBC 4.12 Hgb 11.9 L Hct 38.5 MCV 93 MCH 28.9 MCHC 30.9 L RDW Std Deviation 45.2 Plt Count 298 D Neut % (Auto) 74 Lymph % (Auto) 18 [place] % (Auto) 5 Eos % (Auto) 1 Baso % (Auto) 0 Neut # (Auto) 10.4 H Lymph # (Auto) 2.5 [place] # (Auto) 0.7 Eos # (Auto) 0.1 Baso # (Auto) 0.1 Immature Gran # (Auto) 0.32 H Absolute Nucleated RBC 0.00 Immature Gran % 2 H Nucleated RBC % 0 Sodium 137 Potassium 5.0 D Chloride 100 Carbon Dioxide 35.2 H Anion Gap 2 L BUN 18 Creatinine 0.8 Estim Creat Clear Calc 126.6 eGFR > 60 BUN/Creatinine Ratio 23 H Glucose 123 H Calculated Osmolality 276 Calcium 8.7 Quality Measures Quality Measures VTE prophylaxis (Lovenox) Assessment & Plan Assessment Current Active Medications: Generic Name Dose Route Start Last Admin Trade Name Freq PRN Reason Stop Dose Admin Acetaminophen 650 mg 10/10/24 09:29 10/10/24 10:16 Acetaminophen 325 Mg Tablet PO 11/08/24 18:28 650 mg Q6H PRN Administration Fever >100.1 Aspirin 81 mg 10/15/24 09:00 10/15/24 09:53 Aspirin Ec 81 Mg Tabec PO 11/14/24 08:59 81 mg QDAY CASSY Administration Dextrose 50 ml 10/10/24 09:23 Dextrose 50%-Water Inj 50 Ml Syringe IV 11/09/24 09:22 Q15MIN PRN BG <50 OR BG <70 & pt unresponsive Dextrose 50 ml 10/10/24 13:38 Dextrose 50%-Water Inj 50 Ml Syringe IV 11/09/24 13:37 Q15MIN PRN BG <50 OR BG <70 & pt unresponsive Doxycycline Hyclate 100 mg 10/15/24 09:00 10/15/24 09:53 Doxycycline 100 Mg Tablet PO 11/20/24 12:00 100 mg BID CASSY Administration Glucagon 1 mg 10/10/24 13:38 Glucagon Inj 1 Mg Vial IM Q15MIN PRN BG <70, and no IV access Ceftriaxone Sodium 2 gm/ 50 mls @ 100 mls/hr 10/15/24 09:00 10/15/24 09:54 Sodium Chloride IV 10/22/24 08:59 100 mls/hr QDAY CASSY Administration Insulin Glargine 10 unit 10/10/24 21:00 10/14/24 20:37 Insulin Glargine (Lantus) 5 Unit/0.05 Ml (Per 5 Units) SC 11/09/24 20:59 10 unit HS CASSY Administration Insulin Human Lispro 0 unit 10/10/24 17:00 10/15/24 07:44 Insulin Lispro (Admelog) 1 Unit/0.01 Ml Unit SC 11/09/24 16:59 Not Given ACHS CASSY Protocol Losartan Potassium 50 mg 10/14/24 09:45 10/15/24 09:53 Losartan Potassium 25 Mg Tablet PO 11/13/24 09:44 50 mg QDAY CASSY Administration Magnesium Hydroxide 30 ml 10/09/24 18:29 10/11/24 12:01 Milk Of Magnesia Susp 30 Ml Udc PO 11/08/24 18:28 30 ml QDAY PRN Administration CONSTIPATION Protocol Metoprolol Succinate 100 mg 10/13/24 09:00 10/15/24 09:53 Metoprolol Succinate Xl 25 Mg Tabcr PO 11/12/24 08:59 100 mg QDAY CASSY Administration Morphine Sulfate 2 mg 10/10/24 11:29 Morphine Sulf Inj 10 Mg/Ml Vial IVP 10/15/24 11:28 Q4HR PRN PAIN SCALE 7-10 (Severe Ondansetron HCl 4 mg 10/09/24 18:29 Ondansetron Inj 2 Mg/Ml Inj 2 Ml IV 11/08/24 18:28 Q6H PRN NAUSEA OR VOMITING Protocol Oxycodone/Acetaminophen 1 tab 10/10/24 11:26 10/15/24 07:32 Oxycodone/Apap 5/325 Tablet PO 10/15/24 11:25 1 tab Q6HR PRN Administration Pain 4-6 Rivaroxaban 10 mg/ Rivaroxaban 15 mg 10/15/24 09:00 10/15/24 09:53 5 mg PO 11/14/24 08:59 15 mg BID CASSY Administration Protocol Plan 58-year-old female with past medical history of essential hypertension, congestive heart failure, obesity, and chronic ulcers of lower extremities was admitted to hospital on 10/09/2024 due to sepsis likely secondary to left lower extremity cellulitis and A-fib with RVR. 1. A-fib with RVR ?Patient stated that she has been having some palpitations as of recently ? EKG showed A-fib with RVR ?[id number] score of 4 points indicating 4.8% risk of stroke per year. ?HAS-BLED score of 0, relatively low risk of major bleeding Plan: ?Recommend repeat EKG ?Recommend to continue patient on metoprolol XL 100 mg daily if blood pressure allows and stop diltiazem drip 2 hours after starting metoprolol XL. ?Recommend to continue patient on Xarelto for anticoagulation given weight ?Recommend to keep potassium and magnesium above 4 and 2 respectively to avoid any further arrhythmias 2. Acute decompensated heart failure exacerbation? 3. Essential hypertension ?Patient has been experiencing shortness of breath, orthopnea, and lower extremity swelling ? Patient does have a history of CHF, but there is no echo on file as patient is new to the hospital ?BNP was 227 on admission Plan: ?Recommend to start patient on Lasix 40 mg daily as kidney function is stable, if BP allows ?Will follow-up on echo ordered ? Strict ROBERTO's ? Low-sodium diet ? Daily weights ? Fluid restrictions ?Recommend to keep potassium and magnesium above 4 and 2 respectively to avoid any further arrhythmias 4. Sepsis likely secondary to left lower extremity cellulitis versus osteomyelitis ? Continue current management as per primary care team 5. DM2, newly diagnosed ? Continue current management as per primary care team 6. Hyponatremia ? Continue current management as per primary care team Continue rest of management as per primary team. We are grateful to be able to participate in Mrs. Heath's care. Thank you for the consult Plan of care discussed with attending Experimental Box Tester, Dr Sophie Mckeon MD PGY-1 Attending Provider Attestation/Addendum I have personally seen and examined the patient separately on the above date of service and discussed the plan of care with the resident. I reviewed the resident Dr. South consultation progress note and agree with the resident findings and plan in the note above and have also edited the documentation to reflect my findings and plan. Luis Barrios M.D. Interventional Cardiology
[2024-10-15] MEDS: INSULIN LISPRO (AdmeLOG) 1 UNIT/0.01 ML UNIT SC ×2 (11:42→20:27)
--- NOTE | 2024-10-15 15:20 | PC.SS ---
SS received call from Tracy at [facility] who explained insurance authorization is still pending.
--- NOTE | 2024-10-15 16:07 | EKG_ITS ---
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
[2024-10-15] MEDS: INSULIN GLARGINE (Lantus) 5 UNIT/0.05 ML (PER 5 UNITS) 10 UNIT SC (20:27)
[2024-10-15] MEDS: Milk Of Magnesia Susp 30 ML UDC PO (21:27)
--- NOTE | 2024-10-15 22:35 | PC.NURSE ---
PT ON ROOM AIR, O2 SATS AT 77%. RESTING WITH EYES CLOSED, NO SIGNS OF RESPIRATORY DISTRESS. PLACED 2L NC, O2 SATS NOW AT 93%. STATES SHE IS AWARE THAT HER OXYGEN DROPS WHILE SHE IS SLEEPING AND DOES NOT HAVE A CPAP MACHINE AT HOME HER. PER PT, THEY'RE WORKING ON IT
[2024-10-16] VITALS (8 sets, daily range): BP systolic 113–130; BP diastolic 46–91; PULSE 70–93; RESP 14–26; TEMP 35.8–36.1; O2SAT 94–98
--- NOTE | 2024-10-16 04:51 | PC.NURSE ---
wound to left ankle, left anterior leg cleansed with wound cleanser, patted dry, wrapped with kerlix. no c/o pain at this time
[2024-10-16 05:28] LABS: Basophils # (Auto) 0.1 Thou/mm3 (0.0-0.2); Basophils % (Auto) 0 % (0-2.5); Eosinophils # (Auto) 0.1 Thou/mm3 (0.0-0.5); Eosinophils % (Auto) 1 % (0-10); Hematocrit 38.9 % (36.0-46.0); Hemoglobin 12.2 g/dL (12.0-16.0); Immature Granulocytes % (Auto) 2 % (0-0); Immature Granulocytes Auto 0.21 Thou/mm3 (0.00-0.00); Lymphocytes # (Auto) 2.3 Thou/mm3 (1.0-4.8); Lymphocytes % (Auto) 19 % (10-50); Mean Corpuscular HGB Conc 31.4 g/dl (31.0-37.0); Mean Corpuscular Hemoglobin 29.3 pg (25.0-35.0); Mean Corpuscular Volume 93 fL (80-100); Monocytes # (Auto) 0.7 Thou/mm3 (0.0-0.8); Monocytes % (Auto) 6 % (0-12); Neutrophils # (Auto) 8.7 Thou/mm3 (1.8-7.7); Neutrophils % (Auto) 72 % (37-80); Nucleated Red Blood Cell % 0 /100 WBC (0); Platelet Count 358 Thou/mm3 (140-440); RDW Standard Deviation 45.3 fL (36.4-46.3); Red Blood Count 4.17 Miln/mm3 (4.00-5.20); White Blood Count 12.1 Thou/mm3 (3.6-11.0)
[2024-10-16 06:01] LABS: Anion Gap 3 (7-16); BUN/Creatinine Ratio 26 Ratio (12-20); Blood Urea Nitrogen 18 mg/dL (9-23); Calcium 8.6 mg/dL (8.3-10.6); Carbon Dioxide 34.1 mMol/L (20.0-31.0); Chloride 100 mMol/L (98-107); Creatinine (Component) 0.7 mg/dL (0.6-1.3); Estimated Creatinine Clearance 145.8 mL/min (>60); Glucose 119 mg/dL (74-106); Osmolality,Calculated 276 (275-295); Potassium 4.9 mMol/L (3.4-5.1); Sodium 137 mMol/L (136-145); eGFR > 60 See Note
--- NOTE | 2024-10-16 08:19 | PD.ADDPROG ---
Addendum Progress Note Addendum Date of report being addended: 10/15/24 Narrative: Attending's attestation: I reviewed labs, imaging, EKG, home medications and prior available records. Face to face evaluation was performed by me. I have personally examined the patient and discussed assessment and plan with the IM team. I reviewed the resident note and agree with the plan with exceptions as below. Sepsis Left lower extremity osteomyelitis Cellulitis of left lower extremity Leukocytosis, nonspecific Atrial fibrillation with RVR Morbid obesity Changed to vancomycin/Zosyn to Rocephin and doxycycline per ID recommendations until 11/20. PICC line ordered. Status post arthrocentesis and removal of small amount of joint fluid. Status post debridement of left ankle bulla. Continue wound care. Follow-up MRI of the left lower extremity without contrast: Did show early osteomyelitis. Orthopedic surgery is following. Reconsulted Dr. Thomas: No indication for surgery. Orthopedic surgery recommended second opinion from Dr. Ordonez. Trend WBC: Downtrending Continue metoprolol XL. Echocardiogram ordered: Preserved EF with no pertinent findings. [id number] score is 3. Cardiology recommended Brilinta and Xarelto.
[2024-10-16] MEDS: cefTRIAXone 2 GM in SODIUM CHLORIDE 0.9% (P) 50 ML IV (08:34)
[2024-10-16] MEDS: METOPROLOL SUCCINATE XL 25 MG TABCR 100 MG PO (08:35)
[2024-10-16] MEDS: LOSARTAN POTASSIUM 25 MG TABLET 50 MG PO (08:36)
[2024-10-16] MEDS: RIVAROXABAN 10 MG, RIVAROXABAN 5 MG 15 MG PO (08:36)
[2024-10-16] MEDS: DOXYCYCLINE 100 MG TABLET PO (08:36)
[2024-10-16] MEDS: Furosemide 40 MG TABLET PO (08:36)
[2024-10-16] MEDS: ASPIRIN EC 81 MG TABEC PO (08:37)
[2024-10-16] MEDS: oxyCODONE/APAP 5/325 TABLET 1 TAB PO ×2 (10:10→16:09)
--- NOTE | 2024-10-16 10:35 | ESPR_ITS ---
Documentation for date of: 10/16/24 Subjective Subjective Interval history: Patient was seen at bedside this morning. No overnight events. Patient appears to still be in A-fib, but is rate controlled EKG yesterday showed A-fib, but rate controlled Patient does not have any cardiac complaints at this time. Potassium 4.9 and no magnesium again today, recommend to keep potassium magnesium above 4 and 2 respectively to avoid any further arrhythmias. Recommend to continue patient on metoprolol XL 100 mg daily Recommend to continue patient on Xarelto for anticoagulation given weight Recommend to continue patient on Lasix 40 mg daily Likely to be discharged Echo completed on 10/12/2024 had the following finding: Suboptimal images due to body habitus. Normal LV size and function with an estimated EF of 50 to 55%. Mild LVH. Diastolic dysfunction indeterminate Normal RV size and function. Estimated RVSP, 47 mmHg. RAP 5. At least moderate PAH. Mild MR and moderate TR. Rest of the valve structures not visualized appropriately well. Exam Vital Signs Temp Pulse Resp BP Pulse Ox O2 Del Method O2 Flow Rate 96.9 F 93 20 114/81 98 Room Air 1 10/16/24 08:00 10/16/24 08:36 10/16/24 08:00 10/16/24 08:36 10/16/24 08:00 10/16/24 08:00 10/16/24 08:00 Narrative Exam General: A/O x3, no acute distress, obese Eyes: PERRL, EOMI. Anicteric, vision grossly intact. Ears: No ear pain, no ear discharge, Hearing grossly intact. Nose: No nasal discharge. Mouth/Throat: Moist mucous membranes, no redness, no lesions. Neck: Neck supple, non-tender, no cervical lymphadenopathy. Lungs: Clear STEVE in upper lobes and decreased in Lower lobes likely due to body habitus, No accessory muscle use. Cardio: Normal S1/S2, regular rhythm, no murmurs, no JVD Abdomen: Soft, non-tender, no palpable masses, peristalsis present, no guarding or rebound. Extremities: Symmetrical, no significant deformities, 3+ peripheral edema , non-tender, peripheral pulses presents. Skin: No rashes, no lesions, warm to touch. multiple lesions in R and L LE. L LE swollen greater than R LE, L LE erythematous, improvement noted. Neuro: No focal neurological deficits. motor and sensory intact. Psych: Cooperative, appropriate mood and effect. Objective Labs 10/16/24 04:25 10/16/24 04:25 Labs: Laboratory Results - last 24 hr 10/16/24 04:25 WBC 12.1 H RBC 4.17 Hgb 12.2 Hct 38.9 MCV 93 MCH 29.3 MCHC 31.4 RDW Std Deviation 45.3 Plt Count 358 D Neut % (Auto) 72 Lymph % (Auto) 19 Warren % (Auto) 6 Eos % (Auto) 1 Baso % (Auto) 0 Neut # (Auto) 8.7 H Lymph # (Auto) 2.3 Warren # (Auto) 0.7 Eos # (Auto) 0.1 Baso # (Auto) 0.1 Immature Gran # (Auto) 0.21 H Absolute Nucleated RBC 0.00 Immature Gran % 2 H Nucleated RBC % 0 Sodium 137 Potassium 4.9 Chloride 100 Carbon Dioxide 34.1 H Anion Gap 3 L BUN 18 Creatinine 0.7 Estim Creat Clear Calc 145.8 eGFR > 60 BUN/Creatinine Ratio 26 H Glucose 119 H Calculated Osmolality 276 Calcium 8.6 Quality Measures Quality Measures VTE prophylaxis (Lovenox) Assessment & Plan Assessment Current Active Medications: Generic Name Dose Route Start Last Admin Trade Name Freq PRN Reason Stop Dose Admin Acetaminophen 650 mg 10/10/24 09:29 10/10/24 10:16 Acetaminophen 325 Mg Tablet PO 11/08/24 18:28 650 mg Q6H PRN Administration Fever >100.1 Aspirin 81 mg 10/15/24 09:00 10/16/24 08:37 Aspirin Ec 81 Mg Tabec PO 11/14/24 08:59 81 mg QDAY CASSY Administration Dextrose 50 ml 10/10/24 09:23 Dextrose 50%-Water Inj 50 Ml Syringe IV 11/09/24 09:22 Q15MIN PRN BG <50 OR BG <70 & pt unresponsive Dextrose 50 ml 10/10/24 13:38 Dextrose 50%-Water Inj 50 Ml Syringe IV 11/09/24 13:37 Q15MIN PRN BG <50 OR BG <70 & pt unresponsive Doxycycline Hyclate 100 mg 10/15/24 09:00 10/16/24 08:36 Doxycycline 100 Mg Tablet PO 11/20/24 12:00 100 mg BID CASSY Administration Furosemide 40 mg 10/16/24 09:00 10/16/24 08:36 Furosemide 40 Mg Tablet PO 11/15/24 08:59 40 mg QDAY CASSY Administration Glucagon 1 mg 10/10/24 13:38 Glucagon Inj 1 Mg Vial IM Q15MIN PRN BG <70, and no IV access Ceftriaxone Sodium 2 gm/ 50 mls @ 100 mls/hr 10/15/24 09:00 10/16/24 08:34 Sodium Chloride IV 10/22/24 08:59 100 mls/hr QDAY CASSY Administration Insulin Glargine 10 unit 10/10/24 21:00 10/15/24 20:27 Insulin Glargine (Lantus) 5 Unit/0.05 Ml (Per 5 Units) SC 11/09/24 20:59 10 unit HS CASSY Administration Insulin Human Lispro 0 unit 10/10/24 17:00 10/16/24 08:20 Insulin Lispro (Admelog) 1 Unit/0.01 Ml Unit SC 11/09/24 16:59 Not Given ACHS CASSY Protocol Losartan Potassium 50 mg 10/14/24 09:45 10/16/24 08:36 Losartan Potassium 25 Mg Tablet PO 11/13/24 09:44 50 mg QDAY CASSY Administration Magnesium Hydroxide 30 ml 10/09/24 18:29 10/15/24 21:27 Milk Of Magnesia Susp 30 Ml Udc PO 11/08/24 18:28 30 ml QDAY PRN Administration CONSTIPATION Protocol Metoprolol Succinate 100 mg 10/13/24 09:00 10/16/24 08:35 Metoprolol Succinate Xl 25 Mg Tabcr PO 11/12/24 08:59 100 mg QDAY CASSY Administration Ondansetron HCl 4 mg 10/09/24 18:29 Ondansetron Inj 2 Mg/Ml Inj 2 Ml IV 11/08/24 18:28 Q6H PRN NAUSEA OR VOMITING Protocol Oxycodone/Acetaminophen 1 tab 10/16/24 10:03 Oxycodone/Apap 5/325 Tablet PO 10/21/24 10:02 Q6HR PRN Pain 7-10 Rivaroxaban 10 mg/ Rivaroxaban 15 mg 10/15/24 09:00 10/16/24 08:36 5 mg PO 11/14/24 08:59 15 mg BID CASSY Administration Protocol Plan 58-year-old female with past medical history of essential hypertension, congestive heart failure, obesity, and chronic ulcers of lower extremities was admitted to hospital on 10/09/2024 due to sepsis likely secondary to left lower extremity cellulitis and A-fib with RVR. 1. A-fib with RVR ?Patient stated that she has been having some palpitations as of recently ? EKG showed A-fib with RVR ?[id number] score of 4 points indicating 4.8% risk of stroke per year. ?HAS-BLED score of 0, relatively low risk of major bleeding -EKG yesterday showed A-fib rate controlled Plan: ?Recommend to continue patient on metoprolol XL 100 mg daily if blood pressure allows . ?Recommend to continue patient on Xarelto for anticoagulation given weight ?Recommend to keep potassium and magnesium above 4 and 2 respectively to avoid any further arrhythmias 2. Acute decompensated heart failure exacerbation? 3. Essential hypertension ?Patient has been experiencing shortness of breath, orthopnea, and lower extremity swelling ? Patient does have a history of CHF, but there is no echo on file as patient is new to the hospital ?BNP was 227 on admission Plan: ?Recommend to continue patient on Lasix 40 mg daily ?Will follow-up on echo ordered ? Strict ROBERTO's ? Low-sodium diet ? Daily weights ? Fluid restrictions ?Recommend to keep potassium and magnesium above 4 and 2 respectively to avoid any further arrhythmias 4. Sepsis likely secondary to left lower extremity cellulitis versus osteomyelitis ? Continue current management as per primary care team 5. DM2, newly diagnosed ? Continue current management as per primary care team 6. Hyponatremia ? Continue current management as per primary care team Continue rest of management as per primary team. We are grateful to be able to participate in Mrs. Heath's care. Thank you for the consult Plan of care discussed with attending Natural [employer] Basis Trader, Dr Sophie Mckeon MD PGY-1 Attending Provider Attestation/Addendum I have personally seen and examined the patient separately on the above date of service and discussed the plan of care with the resident. I reviewed the resident Dr. South consultation progress note and agree with the resident findings and plan in the note above and have also edited the documentation to reflect my findings and plan. Luis Barrios M.D. Interventional Cardiology
[2024-10-16] MEDS: INSULIN LISPRO (AdmeLOG) 1 UNIT/0.01 ML UNIT SC (12:03)
--- NOTE | 2024-10-16 12:47 | ESDS_ITS ---
Planned Discharge Date 10/16/24 DS: Providers Provider Date of admission: 10/09/24 18:29 Primary care physician: Joe Upton MD Admitting Provider: Marlen Hall DO Attending Provider on Admission: Wil Emmanuel MD Consults: 10/09/24 20:02 Referral Wound Care Routine Comment: 10/10/24 12:57 Consult to Orthopedic Routine Comment: LT LE osteo Consulting Provider: Laith Lucia 10/10/24 13:15 Consult to Cardiology Routine Comment: AFib w/ RVR Consulting Provider: Luis Barrios 10/10/24 21:12 Consult to General Surgery Urgent Comment: Rapid onset of cellulitis. Some blistering. Consulting Provider: Sheyla Thomas 10/10/24 21:13 Consult to Infectious Diseases Routine Comment: Consulting Provider: Eliseo Mcginnis Instructions: Severe cellulitis left lower extremity. 10/12/24 10:07 Referral Physical Therapy Urgent Comment: Physician Instructions: 10/13/24 22:34 Consult to General Surgery Urgent Comment: Consulting Provider: Sheyla Thomas Instructions: It would be terrific if you could take another look at her she does have some blisters medial aspect of ankle. was aspirated white count 27,000. Could you take a look and see if they need to be debrided by general surgery or wound care nurse Attending Provider on DC: Mike Zamudio MD Discharging Provider: Mike Zamudio MD DS: Diagnosis Problem List Completed Was Problem List Reviewed/Reconciled?: Yes Hospital Course Hospital Course Hospital course: A 58-year-old female who is morbidly obese, history of hypertension on losartan and hydrochlorothiazide presented to the hospital with chief complaints of pain, swelling and redness of left lower extremity since 1 week and diagnosed to have left lower extremity cellulitis, osteomyelitis, atrial fibrillation and new onset type 2 diabetes mellitus.Labs significant for WBC 20.7, Hb 12.7, platelets 152. ESR is 93, sodium 128, BUN 13, creatinine 0.9, lactate 1.6, CRP 28.3, BNP 227, procalcitonin 0.72. HbA1c is 6.9 venous Doppler done is negative for DVT. Foot x-ray showed prominent swelling without any bony destruction noted. CT of bilateral lower extremity -Soft tissue defect lower leg adjacent to the distal fibula with periosteal newbone involving the fibula at this site consistent with early osteomyelitis. Blood cultures -no growth after 48 hours. MRI of left lower extremity- Early osteomyelitis distal lateral fibular shaft. Dr. Mcginnis was consulted and recommended IV ceftriaxone and doxycycline. Dr. Lucia and Dr. Bowman were following the patient during the hospitalization. Dr. Barrios was consulted for atrial fibrillation with rapid ventricular rate.ECHO - Normal LV size and function with an estimated EF of 50 to 55%. Mild LVH. Diastolic dysfunction indeterminate. Normal RV size and function. Estimated RVSP, 47 mmHg. RAP 5. At least moderate PAH .Mild MR and moderate TR. Rest of the valve structures not visualized appropriately well. After explaining risks and prognosis, patient was started on Xarelto. Arterial doppler of both lower extre mities -Significant left lower extremity obstructive arterial disease, consider correlation with CTA abdominal aorta iliofemoral runoff post intravenous contrast Patient was discharged to nursing facility with the following medications and recommendations Follow up with PCP within 1-2 weeks of discharge Complete antibiotic course for osteomyelitis: IV ceftriaxone 2g daily and p.o. Doxycycline 100mg twice daily until November 20, 2024. You will need weekly CBC, Renal panel, and ESR during the treatment course. At the end of treatment, your PICC line can be removed. For severe pain, can do Percocet as every 6 hrs as needed For hypertension, your blood pressure has been well controlled on the following regimen: Furosemide 40mg daily, Losartan 50mg daily, Metoprolol succinate 100mg daily For newly diagnosed diabetes, we will start you on metformin 500mg twice daily Continue xarelto for anticoagulation secondary to atrial fibrillation # Sepsis # Secondary to left lower extremity cellulitis # Osteomyelitis # New onset atrial fibrillation with rapid ventricular rate -- controlled ventricular rate # Moderate pulmonary arterial hypertension # Newly diagnosed diabetes mellitus # History of hypertension #Metabolic syndrome # Peripheral arterial disease Patient plan of care was discussed with the attending physician, Dr. Cholo Zamudio, PGY1 Time Spent with Patient Time attestation: Total time spent providing and/or coordinating discharge services: Home Health Home Health Referral Orders: 10/14/24 17:44 Home Health Referral Routine Reason For Exam: IV antibiotics via PICC line Home-Bound The patient must either because of illness or injury, need the aid of supportive devices such as crutches, canes, wheelchairs, and walkers; the use of special transportation; or the assistance of another person in order to leave their place of residence; OR have a condition such that leaving his or her home is medically contraindicated. In addition, the patient also meets the following criteria: patient is normally unable to leave the home and leaving home requires considerable taxing effort. Addendum to Home Health Certification Practitioner's Certification: I certify that the patient has been under my care in the hospital and the care of attending physician (see below). We had a [id number] encounter on (see date below). My clinical findings indicate that the patient is home bound per the above criteria and the Home Health Services noted in these orders are medically necessary. The primary reason for the [id number] encounter is related to the fact that the patient requires home health services. Date Certifying [id number] Physician Encounter: 10/09/24 Physician's Name who will Assume Oversight for Services: Joe Upton Physician's Phone No.who will Assume Oversight for Service: MECHANICAL ADJUSTER - Community Resources: Yes PT to Evaluate: Yes PT to evaluate and provide a treatmnet plan to increase patient's mobility and strength. Wound Care: Yes Home Health RN - Wound Care Order: Lower extremity wound, left ankle s/p debridement IV Therapy: Yes IV Medication: Rocephin IV Dose: 2 grams IV Frequency: Daily IV Stop Date: 11/22/24 Discontinue PICC Line Once Treatment Complete: Yes RN Safety Evaluation: Yes RN to evaluate and create a plan of care that will produce positive outcomes. Palliative Treatment: No Palliative treatment and evaluate the need for hospice. Home Health Aide - Personal Care: Yes Home Health Aide to assist with any ADL's. Exam Vital Signs Temp Pulse Resp BP Pulse Ox O2 Del Method O2 Flow Rate 96.8 F 86 20 115/46 L 96 Room Air 1 10/16/24 12:00 10/16/24 12:00 10/16/24 12:00 10/16/24 12:00 10/16/24 12:00 10/16/24 12:00 10/16/24 12:00 Narrative Exam General: Awake. Morbidly obese HEENT: Normocephalic, atraumatic, mucous membranes moist. Heart: Irregular rate and rhythm, no murmurs. Lungs: Clear to auscultation with no wheezing or crackles. Abdomen: Soft, nondistended, nontender, positive bowel sounds. ?No guarding or rebound tenderness. Neurologic: Alert and oriented x3, no gross neurological deficit, and patient able to move all 4 extremities. Extremities: Swelling and erythema decreased from the time of admission on left lower extremity. Multiple ulcers noted on bilateral lower extremity. deroofing of blisters was done. Skin: No rash or ecchymoses. A scar is noted on left lateral side of leg. Discharge Plan Plan Patient Disposition: Xfer Skilled Nsg Fac (SNF) Patient condition on transfer: Stable Care Plan Goals: Follow up with PCP within 1-2 weeks of discharge Complete antibiotic course for osteomyelitis: IV ceftriaxone 2g daily and p.o. Doxycycline 100mg twice daily until November 20, 2024. You will need weekly CBC, Renal panel, and ESR during the treatment course. At the end of treatment, your PICC line can be removed. For severe pain, can do Percocet as every 6 hrs as needed For hypertension, your blood pressure has been well controlled on the following regimen: Furosemide 40mg daily, Losartan 50mg daily, Metoprolol succinate 100mg daily For newly diagnosed diabetes, we will start you on metformin 500mg twice daily Continue xarelto for anticoagulation secondary to atrial fibrillation Prescriptions/Referrals Prescriptions/Med Rec: New aspirin 81 mg Tablet,Delayed Release (Dr/Ec) 81 mg PO QDAY 30 Days Qty: 30 0RF ceftriaxone 2 gram recon soln 2 g IV QDAY furosemide 40 mg Tablet 40 mg PO QDAY 30 Days Qty: 30 0RF doxycycline hyclate 100 mg Tablet 100 mg PO BID 35 Days Qty: 70 0RF oxycodone-acetaminophen 5-325 mg Tablet 1 tab PO Q6HR PRN (Reason: Pain 7-10) 14 Days Qty: 56 0RF metoprolol succinate 100 mg tablet extended release 24 hr 100 mg PO QDAY 30 Days Qty: 30 0RF losartan 50 mg tablet 50 mg PO QDAY 30 Days Qty: 30 0RF metformin 500 mg tablet 500 mg PO BID 30 Days Qty: 60 0RF Xarelto 20 mg tablet 20 mg PO QPM 30 Days Qty: 30 0RF Rx Instructions: must administer with evening meal Discontinued losartan-hydrochlorothiazide 100-12.5 mg Tablet 1 tab PO QDAY Referrals: Joe Upton MD [Primary Care Provider] - Patient/Caregiver Discharge Instructions Education Materials: Discharge Instructions for Cellulitis Print Language: [place] Activity Restrictions/Additional Instructions: Follow up with PCP within 1-2 weeks of discharge Complete antibiotic course for osteomyelitis: IV ceftriaxone 2g daily and p.o. Doxycycline 100mg twice daily until November 20, 2024. You will need weekly CBC, Renal panel, and ESR during the treatment course. At the end of treatment, your PICC line can be removed. For severe pain, can do Percocet as every 6 hrs as needed For hypertension, your blood pressure has been well controlled on the following regimen: Furosemide 40mg daily, Losartan 50mg daily, Metoprolol succinate 100mg daily For newly diagnosed diabetes, we will start you on metformin 500mg twice daily Continue xarelto for anticoagulation secondary to atrial fibrillation Stand Alone Forms: Marline Award Info., Patient Portal Info Letter Discharge Order Discharge Orders: Discharge (Routine); Ordered 10/16/24 Ordered By: Mike Zamudio Quality Discharge Quality Measures VTE prophylaxis Attestestation MD Attestation I reviewed labs, imaging, EKG, home medications and prior available records. Face to face evaluation was performed by me. I have personally examined the patient and discussed assessment and plan with the IM team. I reviewed the resident note and agree with the plan with exceptions as below. Sepsis Left lower extremity osteomyelitis Cellulitis of left lower extremity Leukocytosis, nonspecific Atrial fibrillation with RVR Morbid obesity Type 2 diabetes mellitus Changed to vancomycin/Zosyn to Rocephin and doxycycline per ID recommendations until 11/20. PICC line inserted by IR. Status post arthrocentesis and removal of small amount of joint fluid. Status post debridement of left ankle bulla. Continue wound care. Follow-up MRI of the left lower extremity without contrast: Did show early osteomyelitis. Orthopedic surgery is following. Reconsulted Dr. Thomas: No indication for surgery. Follow-up with orthopedic surgery as outpatient. Trend WBC: Downtrending Continue metoprolol XL. Echocardiogram ordered: Preserved EF with no pertinent findings. [id number] score is 3. Continue aspirin and Xarelto. A1c is 6.9. Continue metformin 500 mg twice daily. Time spent is 40 minutes. More than 50% of the time was spent on patient education and coordination of care.
--- NOTE | 2024-10-16 13:38 | PC.SS ---
Loss Control Technician (ELLIOTT) Daniella informed by Marko that patient had discharge order. SW met with patient [id number] to discuss discharge plan. SW introduced self, role and reason for visit. Patient appeared alert and oriented to self, place and situation. Patient informed that her insurance provided authorization for [facility] rehab at [facility] ([facility]). Patient is in agreement with discharge plan. Patient is using oxygen at this time. Patient reported that original plan was for her daughter, Viviane to provide transportation. SW explained that Admission CoordinatorTracy at [facility] explained that an oxygen tank can be loaned to transport patient. SW notified Marko of transportation plan and discharge plan. SW provided packet to Marko.
--- NOTE | 2024-10-16 19:00 | PC.NURSE ---
1430 REPORT CALLED TO ARACELI AT [facility].
--- NOTE | 2024-10-18 12:16 | ESCONSULT_ITS ---
RE: SARI TRUONG : 1965 DATE OF CONSULTATION: 10/15/2024 Thank you, Dr. Brewer, for asking me for the second opinion on the patient. HISTORY OF PRESENT ILLNESS: The patient presented with infection of the left ankle. Basically, she has a bulla formation, which was taken off by yourself. The patient has significant bilateral lower limb lymphedema. PAST MEDICAL HISTORY: The patient has high blood pressure and congestive heart failure. The patient also has history of asthma. No history of diabetes mellitus. DRUG HISTORY: The patient is on losartan and hydrochlorothiazide. ALLERGIES: NIL KNOWN. FAMILY HISTORY AND SOCIAL HISTORY: Noncontributory. PHYSICAL EXAMINATION: GENERAL: A rather overbuilt lady. VITAL SIGNS: Pulse is 110. Blood pressure is 100/76. EXTREMITIES: Left lower limb examination revealed significant lymphedema. There is no bar pus or wound coming out. On the medial aspect of the foot and ankle, there are two scar alvarez. On the lateral side, there is a scar acacia as well. There is no bar discharge. DIAGNOSTIC DATA: X-ray of the foot, CT scan and MRI scan of the foot and ankle was reviewed. Basically, the patient has osteomyelitis of the distal fibula. I also reviewed the recommendation by Dr. Mcginnis and yourself, I agree with the treatment plan. The patient is not a candidate for surgical intervention at this point. DT: 17:16:24 TT: 19:03:00 Ref: [id number] - TID: [id number]
== END 2024-10-16 16:23 | disposition skilled nursing facility (03) | DRG 872 ==
LOC: SERX 14:28 → SERHOLD 18:58 → S3NX 10-10 16:40 → S2NX 10-11 09:50 → S3NX 10-13 07:08 → SERHOLD 10-13 07:08
PROVIDERS: Internal Medicine Infectious Disease; Nurse Practitioner Family; Orthopaedic Surgery; Physician Assistant; Student in an Organized Health Care Education/Training Program; Admitting Provider Internal Medicine; Emergency Provider Emergency Medicine; PCP Family Medicine; Visit Provider Student in an Organized Health Care Education/Training Program
DX: A41.9 Sepsis, unspecified organism (principal); L03.116 Cellulitis of left lower limb; E66.2 Morbid (severe) obesity with alveolar hypoventilation; Z68.44 Body mass index [BMI] 60.0-69.9, adult; E87.1 Hypo-osmolality and hyponatremia; M86.162 Other acute osteomyelitis, left tibia and fibula; I50.9 Heart failure, unspecified; I11.0 Hypertensive heart disease with heart failure; I89.0 Lymphedema, not elsewhere classified; R23.8 Other skin changes; I48.91 Unspecified atrial fibrillation; E11.69 Type 2 diabetes mellitus with other specified complication; E11.51 Type 2 diabetes mellitus with diabetic peripheral angiopathy without gangrene; I70.202 Unspecified atherosclerosis of native arteries of extremities, left leg; I27.21 Secondary pulmonary arterial hypertension; I08.1 Rheumatic disorders of both mitral and tricuspid valves; Z79.899 Other long term (current) drug therapy; Z79.01 Long term (current) use of anticoagulants; Z79.84 Long term (current) use of oral hypoglycemic drugs; Z79.82 Long term (current) use of aspirin
CPT/HCPCS: 36415; 71045; 71275; 73630; 73700; 73718; 80048; 80053; 80061; 80202; 83036; 83605; 83735; 83880; 84132; 84145; 84300; 84443; 85025; 85610; 85652; 85730; 86140; 86703; 86803; 87040; 87070; 87081; 87186; 87205; 87811; 89051; 93005; 93225; 93306; 93922; 93971; 96365; 96366; 96372; 96375; 97162; 99285; A4649; C1751; C1894; J0696; J1642; J1650; J1815; J1940; J2543; J3371; J3475; J3490; J7030; J7040; J7050; Q9967; A9270; J3370

== ENCOUNTER 2024-11-04 13:10 | Outpatient (AMB) | payer OTHER, SELFPAY ==
[2024-11-04 13:24] VITALS: BP 112/80; PULSE 87; RESP 19; TEMP 35; O2SAT 92; BMI 60.0
--- NOTE | 2024-11-04 13:24 | PD.GSCLVISIT ---
Vital Signs - [facility] 11/04/24 13:24 Height 1.63 m Height Method Stated Weight 159.466 kg Weight Measurement Method Standing Scale BMI 60.0 BP 112/80 Blood Pressure Source Automatic Cuff Blood Pressure Location Left Upper Arm Position Sitting Respiration 19 Pulse 87 Pulse Source Monitor Temp 95.0 F L Temp Source Temporal Artery Scan Pulse Oximetry (%) 92 L Oxygen Delivery Method Room Air Med/Allergies Allergies & Medications Allergies No Known Allergies Allergy (Verified 11/04/24 13:25) Medication Reconciliation aspirin 81 mg tablet,delayed release 81 mg PO QDAY 30 days #30 tabs 10/16/24 [Rx Confirmed 11/04/24] ceftriaxone 2 gram intravenous solution 2 g IV QDAY 10/16/24 [Rx Confirmed 11/04/24] doxycycline hyclate 100 mg tablet 100 mg PO BID 35 days #70 tabs 10/16/24 [Rx Confirmed 11/04/24] furosemide 40 mg tablet 40 mg PO QDAY 30 days #30 tabs 10/16/24 [Rx Confirmed 11/04/24] losartan 50 mg tablet 50 mg PO QDAY 30 days #30 tabs 10/16/24 [Rx Confirmed 11/04/24] metformin 500 mg tablet 500 mg PO BID 30 days #60 tabs 10/16/24 [Rx Confirmed 11/04/24] metoprolol succinate 100 mg tablet,extended release 24 hr 100 mg PO QDAY 30 days #30 tabs 10/16/24 [Rx Confirmed 11/04/24] rivaroxaban 20 mg tablet (Xarelto) 20 mg PO QPM 30 days #30 tabs 10/16/24 [Rx Confirmed 11/04/24] MA Intake Visit Data Collection New Patient or Established: Established Patient (seen at [facility] within 3 years) Seen by Clinical Staff ONLY (RN/MA): No Reason for Visit:: CELLULITES Pain Present Currently: No Pain scale:: 0 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 PCP or OBGYN visit in last 3 months: Yes Hx Now: No Do You Feel Safe at Home: Yes Authorities Contacted: N/A Smoking Status Smoking Status: Former smoker Immunization / Flu Flu Vaccine in the Last 12 Months: No Flu Vaccine Exclusion Criteria: No Exclusion Criteria Past Medical History Past Medical History NEUROLOGIC: Negative Neurological Disorders CARDIAC: Positive Cardiac Disorders (CHF), Congestive Heart Failure and Hypertension; Negative Hypercholesterolemia RESPIRATORY: Positive Asthma (SOB); Negative Chronic Obstructive Pulmonary Disease (COPD) GASTROINTESTINAL: Positive Gastrointestinal Disorders and Obesity; Negative Hepatitis GENITOURINARY: Negative Genitourinary Disorders or Renal Disease REPRODUCTIVE: Negative Pelvic Inflammatory Disease ENDOCRINE: Negative Endocrine Disorders, Diabetes Mellitus Type 1 or Diabetes Mellitus Type 2 (pt denies h/x of diabetes) HEMATOLOGIC: Negative Blood Disorders or Sickle Cell Disease OTHER HISTORY: Negative Hospitalization, Autoimmune Disease, Down Syndrome, Developmental Delay, Shingles, Falls, Blood Transfusions, Blood Transfusion Reaction, Anesthesia Reactions, Organ Transplant, Chemotherapy, Radiation Therapy, Hyperbaric Therapy, MRSA, VRSA, Vancomycin-Resistant Enterococci, Human Immunodeficiency Virus (HIV), Chicken Pox, Measles, Mumps, Rubella (Mal[place]ian Measles), Pertussis, Clostridium Difficile or Cancer Family History FAMILY HISTORY: Positive Family Cardiac Disorders; Negative Family Psychiatric Problems, Family Respiratory Disorders, Family Gastrointestinal Problems, Family Cancer, Family Surgery or Family Anesthesia Reaction Surgical History SURGICAL: Negative Coronary Artery Bypass Graft, Valve Replacement, Pacemaker, Carotid Endarterectomy, Thyroidectomy, Hysterectomy or Organ Transplant Social History SMOKING STATUS: Smoking status: Former smoker ALCOHOL: Alcohol Intake: Former HOUSING: Housing: House LIVES WITH: Lives With: Alone HPI HPI Narrative 58F with HTN, obesity and lymphedema who was admitted with LLE cellulitis and osteomyelitis of the distal lateral fibular shaft, here for follow up. Pt reports feeling well overall with no pain, she is ambulating with a walker and undergoing PT. She remains on antibiotic therapy until 11/20/24 and is awaiting PCP follow up ROS Review of Systems Systems Reviewed: All systems reviewed, normal except as documented Objective/Exam General General Appearance: alert, cooperative and well groomed Resp Respiratory exam: Absent respiratory distress Extremities Extremities exam: Present other (left lower extremity with no erythema, no fluctuance or tenderness; thickening of the lower leg skin medially) Assessment & Plan Diagnosis / Problem List (1) Cellulitis: Status: Acute Assessment & Plan: 58F with HTN, obesity and lymphedema presenting with LLE celluitis and early osteomyelitis of the distal lateral fibular shaft, recovering well overall. I advised pt to continue elevating the leg while she is seated/lying down, complete her antibiotic course and follow up with her PCP for consideration of referral to vascular surgery (given evidence of PAD on RACHEL/PVR). Pt expressed understanding and is encouraged to reach out with concerns or questions Office Procedures GNS Level of Care Nursing/Assessment Patient Status: Established Patient Nursing Assessment/Reassesment: Medication Reconciliation, Update PMH in EMR and Vital Signs Coordination of Care: Complex Care and Chronic Disease 1-5, Consent,records obtained, informed consent, Education Simp Pt/Fam, Results/Orders obtained and Staff clarify orders Established Patient Charge Established Patient Point Assignment: 90 Established Patient Point Charge: EP Level 3 (80-115) Patient Portal Questionaires Social History Living Situation History Housing: House Tobacco History Smoking Status: Former smoker Alcohol History Alcohol Intake: Former Domestic Abuse History Do You Feel Safe at Home: Yes Review of Systems Report any current symptoms Only answer those that you have currently: Past Medical History Past Medical History Have you ever been diagnosed with any of the following: Cardiology Problems Hypercholesterolemia: No Congestive Heart Failure: Yes Hypertension: Yes Respiratory Problems Chronic Obstructive Pulmonary Disease (COPD): No Asthma: Yes (SOB) Stomache/Intestinal Problems Hepatitis: No Obesity: Yes Genital/Urinary Problems Renal Disease: No Reproductive Problems Pelvic Inflammatory Disease: No Endocrine Problems Diabetes Mellitus Type 1: No Diabetes Mellitus Type 2: No (pt denies h/x of diabetes) Blood Problems Sickle Cell Disease: No Other Problems Hospitalization: No Autoimmune Disease: No Down Syndrome: No Developmental Delay: No Shingles: No Falls: No Blood Transfusions: No Blood Transfusion Reaction: No Anesthesia Reactions: No Organ Transplant: No Chemotherapy: No Radiation Therapy: No Hyperbaric Therapy: No MRSA: No VRSA: No Vancomycin-Resistant Enterococci: No Human Immunodeficiency Virus (HIV): No Chicken Pox: No Measles: No Mumps: No Rubella (Mal[place]ian Measles): No Pertussis: No Clostridium Difficile: No Cancer: No Surgical History Carotid Endarterectomy: No Coronary Artery Bypass Graft: No Valve Replacement: No Hysterectomy: No Pacemaker: No Thyroidectomy: No
== END 2024-11-04 13:33 | disposition home or self-care (01) ==
PROVIDERS: PCP Family Medicine; Referring Provider Family Medicine; Supervising Provider Surgery; Visit Provider Surgery
DX: L03.116 Cellulitis of left lower limb (principal); M86.9 Osteomyelitis, unspecified
CPT/HCPCS: 99213; G0463

== ENCOUNTER 2024-12-03 13:46 | Outpatient (AMB) | payer OTHER, SELFPAY ==
[2024-12-03 14:01] VITALS: BP 141/89; PULSE 96; RESP 20; TEMP 36.1; O2SAT 95; BMI 62.4
--- NOTE | 2024-12-03 14:01 | PD.RESCLINIC ---
Vital Signs 12/03/24 14:01 Height 1.63 m Height Method Stated Weight 164.824 kg Weight Measurement Method Standing Scale BMI 62.4 BP 141/89 H Blood Pressure Source Automatic Cuff Blood Pressure Location Right Lower Arm Position Sitting Respiration 20 Pulse 96 Pulse Source Monitor Temp 96.9 F Temp Source Temporal Artery Scan Pulse Oximetry (%) 95 Oxygen Delivery Method Room Air Allergies/Meds Allergies & Medications Allergies No Known Allergies Allergy (Verified 12/03/24 14:02) Medication Reconciliation ceftriaxone 2 gram intravenous solution 2 g IV QDAY 10/16/24 [Rx Confirmed 12/03/24] furosemide 40 mg tablet 40 mg PO QDAY #30 tabs 11/29/24 [Rx Confirmed 12/03/24] losartan 50 mg tablet 50 mg PO QDAY #30 tabs 11/29/24 [Rx Confirmed 12/03/24] metformin 500 mg tablet 500 mg PO BIDWMEAL #60 tabs 11/29/24 [Rx Confirmed 12/03/24] metoprolol succinate 100 mg tablet,extended release 24 hr 100 mg PO QDAY #30 tabs 11/29/24 [Rx Confirmed 12/03/24] rivaroxaban 20 mg tablet (Xarelto) 20 mg PO QPM #30 tabs 11/29/24 [Rx Confirmed 12/03/24] aspirin 81 mg tablet,delayed release 81 mg PO QDAY #30 tabs 12/03/24 [Rx] blood-glucose sensor (FreeStyle Latosha 3 Sensor device) #2 ea 12/03/24 [Rx] tirzepatide 2.5 mg/0.5 mL subcutaneous pen injector (Mounjaro) 2.5 mg (0.5 mL) subcut QWEEK #2 mL 12/03/24 [Rx] MA Intake Visit Data Collection New Patient or Established: Established Patient (seen at [facility] within 3 years) Seen by Clinical Staff ONLY (RN/MA): No Reason for Visit:: Hospital follow up Pain Present Currently: No Pain scale:: 0 Pain Scale Used: Ravi-Quezada/Numerical PCP or OBGYN visit in last 3 months: Yes Hx Now: No Do You Feel Safe at Home: Yes Authorities Contacted: N/A Smoking Status Smoking Status: Former smoker Immunization / Flu Flu Vaccine in the Last 12 Months: No Flu Vaccine Exclusion Criteria: No Exclusion Criteria Past Medical History Past Medical History NEUROLOGIC: Negative Neurological Disorders CARDIAC: Positive Cardiac Disorders (CHF), Congestive Heart Failure and Hypertension; Negative Hypercholesterolemia RESPIRATORY: Positive Asthma (SOB); Negative Chronic Obstructive Pulmonary Disease (COPD) GASTROINTESTINAL: Positive Gastrointestinal Disorders and Obesity; Negative Hepatitis GENITOURINARY: Negative Genitourinary Disorders or Renal Disease REPRODUCTIVE: Negative Pelvic Inflammatory Disease ENDOCRINE: Negative Endocrine Disorders, Diabetes Mellitus Type 1 or Diabetes Mellitus Type 2 (pt denies h/x of diabetes) HEMATOLOGIC: Negative Blood Disorders or Sickle Cell Disease OTHER HISTORY: Negative Hospitalization, Autoimmune Disease, Down Syndrome, Developmental Delay, Shingles, Falls, Blood Transfusions, Blood Transfusion Reaction, Anesthesia Reactions, Organ Transplant, Chemotherapy, Radiation Therapy, Hyperbaric Therapy, MRSA, VRSA, Vancomycin-Resistant Enterococci, Human Immunodeficiency Virus (HIV), Chicken Pox, Measles, Mumps, Rubella ([place] Measles), Pertussis, Clostridium Difficile or Cancer Family History FAMILY HISTORY: Positive Family Cardiac Disorders; Negative Family Psychiatric Problems, Family Respiratory Disorders, Family Gastrointestinal Problems, Family Cancer, Family Surgery or Family Anesthesia Reaction Surgical History SURGICAL: Negative Coronary Artery Bypass Graft, Valve Replacement, Pacemaker, Carotid Endarterectomy, Thyroidectomy, Hysterectomy or Organ Transplant Social History SMOKING STATUS: Smoking status: Former smoker ALCOHOL: Alcohol Intake: Former HOUSING: Housing: House LIVES WITH: Lives With: Alone Patient Portal Questionaires Social History Living Situation History Housing: House Tobacco History Smoking Status: Former smoker Alcohol History Alcohol Intake: Former Domestic Abuse History Do You Feel Safe at Home: Yes Review of Systems Report any current symptoms Only answer those that you have currently: Past Medical History Past Medical History Have you ever been diagnosed with any of the following: Cardiology Problems Hypercholesterolemia: No Congestive Heart Failure: Yes Hypertension: Yes Respiratory Problems Chronic Obstructive Pulmonary Disease (COPD): No Asthma: Yes (SOB) Stomache/Intestinal Problems Hepatitis: No Obesity: Yes Genital/Urinary Problems Renal Disease: No Reproductive Problems Pelvic Inflammatory Disease: No Endocrine Problems Diabetes Mellitus Type 1: No Diabetes Mellitus Type 2: No (pt denies h/x of diabetes) Blood Problems Sickle Cell Disease: No Other Problems Hospitalization: No Autoimmune Disease: No Down Syndrome: No Developmental Delay: No Shingles: No Falls: No Blood Transfusions: No Blood Transfusion Reaction: No Anesthesia Reactions: No Organ Transplant: No Chemotherapy: No Radiation Therapy: No Hyperbaric Therapy: No MRSA: No VRSA: No Vancomycin-Resistant Enterococci: No Human Immunodeficiency Virus (HIV): No Chicken Pox: No Measles: No Mumps: No Rubella (Al[place]ian Measles): No Pertussis: No Clostridium Difficile: No Cancer: No Surgical History Carotid Endarterectomy: No Coronary Artery Bypass Graft: No Valve Replacement: No Hysterectomy: No Pacemaker: No Thyroidectomy: No History of Present Illness HPI Narrative A 58-year-old female with past medical history of hypertension, recent admission in [facility] on 10/19 for osteomyelitis, new onset diabetes mellitus, newly diagnosed A-fib with RVR came for regular follow-up visit from hospital discharge. Reported that she is having bilateral knee joint pain and have difficulty in losing weight. Stated that her foot is healing well. Denies any other complaints Review of Systems Review of Systems Narrative Review of Systems: Constitutional: No Weight Change, No Fever, No Chills, No Night Sweats, No Fatigue, No Malaise ENT/Mouth: No Hearing Changes, No Ear Pain, No Nasal Congestion, No Sinus Pain, No Hoarseness, No sore throat, No Rhinorrhea, No Swallowing Difficulty Eyes: No Eye Pain, No Swelling, No Redness, No Foreign Body, No Discharge, No Vision Changes Cardiovascular: No Chest Pain, No SOB, No PND, No Dyspnea on Exertion, No Orthopnea, No Edema, No Palpitations Respiratory: No Cough, No Sputum, No Wheezing, No Dyspnea Gastrointestinal: No Nausea, No Vomiting, No Diarrhea, No Constipation, No Pain, No Heartburn, No Anorexia, No Dysphagia, No Hematochezia, No Melena, No Flatulence, No Jaundice Genitourinary: No Dysuria, No Urinary Frequency, No Hematuria, No Urinary Incontinence, No Urgency, No Flank Pain, No Urinary Flow Changes, No Hesitancy Musculoskeletal: No Arthralgias, No Myalgias, No Joint Swelling, No Joint Stiffness, No Back Pain, No Neck Pain, No Injury History Skin: No Skin Lesions, No Pruritis Neuro: No Weakness, No Numbness, No Paresthesias, No Loss of Consciousness, No Syncope, No Dizziness, No Headache, No Coordination Changes, No Recent Falls Objective/Exam Narrative Physical exam: General: Awake. HEENT: Normocephalic, atraumatic, mucous membranes moist. Heart: Irregular rate and rhythm, no murmurs. Lungs: Clear to auscultation with no wheezing or crackles. Abdomen: Soft, nondistended, nontender, positive bowel sounds. ?No guarding or rebound tenderness. Neurologic: Alert and oriented x3, no gross neurological deficit, and patient able to move all 4 extremities. Extremities: No edema. Skin: No rash or ecchymoses. Assessment & Plan Diagnosis / Problem List (1) Diabetes: Status: Acute Assessment & Plan: Patient was newly diagnosed with diabetes mellitus during hospital admission in 09/2024 on routine labs Denies symptoms of neuropathy HbA1c in 09/2024 is 6.9 Discharged on metformin 500 Mg twice daily Plan: -Repeat HbA1c is ordered -Educated on diabetes -Patient reported that previously she tried Ozempic and she had severe side effects, so we will try Mounjaro -Freestyle latosha is ordered (2) Peripheral angiopathy due to diabetes mellitus: Status: Acute Assessment & Plan: Doppler done in 09/2024 showed bilateral arterial obstruction Started on aspirin Patient does not have any symptoms of claudication as of now Plan: -CT angio of bilateral lower extremities is ordered to look for the extent of the disease -Will continue aspirin (3) Hypertension: Status: Acute Assessment & Plan: Patient is a known hypertensive Blood pressure during this visit is 141/89 mmHg Plan: Educated on dietary salt restriction and will continue losartan (4) Atrial fibrillation: Status: Chronic Assessment & Plan: Patient was diagnosed with atrial fibrillation in 09/2024 During the visit, heart rate is around 80s Plan: -Recommended to continue metoprolol and Xarelto Orders: Orders CBC 4 Weeks L03.90 - Cellulitis, unspecified Ambulatory Hemoglobin A1C 4 Weeks E11.9 - Type [address] angio abd ilio fem runoff 2 Weeks E11.51 - Type 2 diabetes mellitus with diabetic peripheral angiopathy without gangrene Additional Assessment Internal Medicine Attending Note: Case discussed with and agree with note and management plan of Resident Physician as per Resident's Note above. Issues of concern for present visit are as follows: Follow-up visit. Diabetes self-care reviewed including diet, exercise, footcare, eye care. Hemoglobin A1c in September was 6.9. Patient remains on metformin. We have previously tried to place patient on Ozempic, we will try Mounjaro instead as she had side effects with Ozempic, use of GLP-1 will help with diabetic control as well as potentially weight loss. CGM ordered. Awaiting CT angio bilateral lower extremities to assess burden of peripheral arterial disease. Blood pressure borderline high today, continue losartan, monitor as outpatient. Heart rate is controlled. Patient remains anticoagulated and on metoprolol for rate control. Bob Chavez MD Physician Billing Established Patient Established Patient: E/M Level 3-CPT 12182 Office Procedures [facility] Level of Care Nursing/Assessment Patient Status: Established Patient Nursing Assessment/Reassessment: Medication Reconciliation, Update PMH in EMR and Vital Signs Coordination of Care: Complex Care and Chronic Disease 1-5, Consent,records obtained, informed consent, Education Simp Pt/Fam, Results/Orders obtained and Staff clarify orders Established Patient Charge Established Patient Point Assignment: 90 Established Patient Point Charge: EP Level 3 (80-115)
== END 2024-12-03 15:14 | disposition home or self-care (01) ==
LOC: HODAHC 13:46
PROVIDERS: Supervising Provider Internal Medicine
DX: E11.51 Type 2 diabetes mellitus with diabetic peripheral angiopathy without gangrene (principal); Z79.84 Long term (current) use of oral hypoglycemic drugs; I10 Essential (primary) hypertension; I48.91 Unspecified atrial fibrillation; Z79.01 Long term (current) use of anticoagulants
CPT/HCPCS: 99213; G0463

== ENCOUNTER → 2024-12-23 | Outpatient (CLI) | payer OTHER, SELFPAY ==
[2024-12-23 12:35] LABS: Basophils % (Auto) 0 % (0-2.5); Eosinophils # (Auto) 0.1 Thou/mm3 (0.0-0.5); Eosinophils % (Auto) 1 % (0-10); Hematocrit 43.1 % (36.0-46.0); Hemoglobin 14.2 g/dL (12.0-16.0); Immature Granulocytes % (Auto) 0 % (0-0); Immature Granulocytes Auto 0.02 Thou/mm3 (0.00-0.00); Lymphocytes # (Auto) 2.5 Thou/mm3 (1.0-4.8); Lymphocytes % (Auto) 26 % (10-50); Mean Corpuscular HGB Conc 32.9 g/dl (31.0-37.0); Mean Corpuscular Hemoglobin 29.4 pg (25.0-35.0); Mean Corpuscular Volume 89 fL (80-100); Monocytes # (Auto) 0.5 Thou/mm3 (0.0-0.8); Monocytes % (Auto) 6 % (0-12); Neutrophils # (Auto) 6.3 Thou/mm3 (1.8-7.7); Neutrophils % (Auto) 67 % (37-80); Nucleated Red Blood Cell % 0 /100 WBC (0); Platelet Count 289 Thou/mm3 (140-440); RDW Standard Deviation 44.9 fL (36.4-46.3); Red Blood Count 4.83 Miln/mm3 (4.00-5.20); White Blood Count 9.4 Thou/mm3 (3.6-11.0)
[2024-12-23 12:42] LABS: Glucose Estimated Average 134 mg/dL (80-131); Hemoglobin A1C 6.3 % Hgb (4.8-6.0)
== END | disposition home or self-care (01) ==
DX: E11.9 Type 2 diabetes mellitus without complications (principal); L03.90 Cellulitis, unspecified
CPT/HCPCS: 36415; 83036; 85025

== ENCOUNTER 2024-12-31 13:54 | Outpatient (AMB) | payer OTHER, SELFPAY ==
[2024-12-31 14:32] VITALS: BP 121/81; PULSE 73; RESP 16; TEMP 36.3; O2SAT 94; BMI 60.8
--- NOTE | 2024-12-31 14:32 | PD.RESCLINIC ---
Vital Signs 12/31/24 14:32 Height 1.63 m Height Method Stated Weight 160.742 kg Weight Measurement Method Standing Scale BMI 60.8 BP 121/81 Blood Pressure Source Automatic Cuff Blood Pressure Location Left Upper Arm Position Sitting Respiration 16 Pulse 73 Pulse Source Monitor Temp 97.3 F Temp Source Temporal Artery Scan Pulse Oximetry (%) 94 L Oxygen Delivery Method Room Air Allergies/Meds Allergies & Medications Allergies No Known Allergies Allergy (Verified 12/31/24 14:33) Medication Reconciliation ceftriaxone 2 gram intravenous solution 2 g IV QDAY 10/16/24 [Rx Confirmed 12/31/24] furosemide 40 mg tablet 40 mg PO QDAY #30 tabs 11/29/24 [Rx Confirmed 12/31/24] losartan 50 mg tablet 50 mg PO QDAY #30 tabs 11/29/24 [Rx Confirmed 12/31/24] metformin 500 mg tablet 500 mg PO BIDWMEAL #60 tabs 11/29/24 [Rx Confirmed 12/03/24] rivaroxaban 20 mg tablet (Xarelto) 20 mg PO QPM #30 tabs 11/29/24 [Rx Confirmed 12/31/24] aspirin 81 mg tablet,delayed release 81 mg PO QDAY #30 tabs 12/03/24 [Rx Confirmed 12/31/24] tirzepatide 2.5 mg/0.5 mL subcutaneous pen injector (Mounjaro) 2.5 mg (0.5 mL) subcut QWEEK #2 mL 12/03/24 [Rx] blood-glucose sensor (FreeStyle Latosha 3 Sensor device) #2 ea 12/31/24 [Rx] metformin 1,000 mg tablet,extended release 24hr (osmotic) 1,000 mg PO QDAY #30 tabs 12/31/24 [Rx] metoprolol succinate 100 mg tablet,extended release 24 hr 100 mg PO QDAY #30 tabs 12/31/24 [Rx] tirzepatide 2.5 mg/0.5 mL subcutaneous pen injector (Mounjaro) 2.5 mg (0.5 mL) subcut QWEEK #2 mL 12/31/24 [Rx] MA Intake Visit Data Collection New Patient or Established: Established Patient (seen at [facility] within 3 years) Seen by Clinical Staff ONLY (RN/MA): No Pain Present Currently: No Pain scale:: 0 Pain Scale Used: Ravi-Quezada/Numerical Taxicab Driver Required: No PCP or OBGYN visit in last 3 months: Yes Hx Now: No Do You Feel Safe at Home: Yes Authorities Contacted: N/A Smoking Status Smoking Status: Former smoker Immunization / Flu Flu Vaccine in the Last 12 Months: No Flu Vaccine Exclusion Criteria: No Exclusion Criteria Past Medical History Past Medical History NEUROLOGIC: Negative Neurological Disorders CARDIAC: Positive Cardiac Disorders (CHF), Congestive Heart Failure and Hypertension; Negative Hypercholesterolemia RESPIRATORY: Positive Asthma (SOB); Negative Chronic Obstructive Pulmonary Disease (COPD) GASTROINTESTINAL: Positive Gastrointestinal Disorders and Obesity; Negative Hepatitis GENITOURINARY: Negative Genitourinary Disorders or Renal Disease REPRODUCTIVE: Negative Pelvic Inflammatory Disease ENDOCRINE: Negative Endocrine Disorders, Diabetes Mellitus Type 1 or Diabetes Mellitus Type 2 (pt denies h/x of diabetes) HEMATOLOGIC: Negative Blood Disorders or Sickle Cell Disease OTHER HISTORY: Negative Hospitalization, Autoimmune Disease, Down Syndrome, Developmental Delay, Shingles, Falls, Blood Transfusions, Blood Transfusion Reaction, Anesthesia Reactions, Organ Transplant, Chemotherapy, Radiation Therapy, Hyperbaric Therapy, MRSA, VRSA, Vancomycin-Resistant Enterococci, Human Immunodeficiency Virus (HIV), Chicken Pox, Measles, Mumps, Rubella (Mongolian Measles), Pertussis, Clostridium Difficile or Cancer Family History FAMILY HISTORY: Positive Family Cardiac Disorders; Negative Family Psychiatric Problems, Family Respiratory Disorders, Family Gastrointestinal Problems, Family Cancer, Family Surgery or Family Anesthesia Reaction Surgical History SURGICAL: Negative Coronary Artery Bypass Graft, Valve Replacement, Pacemaker, Carotid Endarterectomy, Thyroidectomy, Hysterectomy or Organ Transplant Social History SMOKING STATUS: Smoking status: Former smoker ALCOHOL: Alcohol Intake: Former HOUSING: Housing: House LIVES WITH: Lives With: Alone Patient Portal Questionaires Social History Living Situation History Housing: House Tobacco History Smoking Status: Former smoker Alcohol History Alcohol Intake: Former Domestic Abuse History Do You Feel Safe at Home: Yes Review of Systems Report any current symptoms Only answer those that you have currently: Past Medical History Past Medical History Have you ever been diagnosed with any of the following: Cardiology Problems Hypercholesterolemia: No Congestive Heart Failure: Yes Hypertension: Yes Respiratory Problems Chronic Obstructive Pulmonary Disease (COPD): No Asthma: Yes (SOB) Stomache/Intestinal Problems Hepatitis: No Obesity: Yes Genital/Urinary Problems Renal Disease: No Reproductive Problems Pelvic Inflammatory Disease: No Endocrine Problems Diabetes Mellitus Type 1: No Diabetes Mellitus Type 2: No (pt denies h/x of diabetes) Blood Problems Sickle Cell Disease: No Other Problems Hospitalization: No Autoimmune Disease: No Down Syndrome: No Developmental Delay: No Shingles: No Falls: No Blood Transfusions: No Blood Transfusion Reaction: No Anesthesia Reactions: No Organ Transplant: No Chemotherapy: No Radiation Therapy: No Hyperbaric Therapy: No MRSA: No VRSA: No Vancomycin-Resistant Enterococci: No Human Immunodeficiency Virus (HIV): No Chicken Pox: No Measles: No Mumps: No Rubella (Mongolian Measles): No Pertussis: No Clostridium Difficile: No Cancer: No Surgical History Carotid Endarterectomy: No Coronary Artery Bypass Graft: No Valve Replacement: No Hysterectomy: No Pacemaker: No Thyroidectomy: No History of Present Illness HPI Narrative Patient came for regular follow-up visit and to follow-up on her lab reports. A1c is 6.3 done on 12/23/2024. Rest of the labs are within normal limits. Still complaining of difficulty in weight loss. Also complaining that she is having tiredness in the morning and snoring during nights Recommended to start Mounjaro 2.5 Mg and was started on freestyle latosha Started on metformin 1000mg ER p.o. daily Review of Systems Review of Systems Narrative Review of Systems: Constitutional: No Weight Change, No Fever, No Chills, No Night Sweats, Fatigue, Malaise ENT/Mouth: No Hearing Changes, No Ear Pain, No Nasal Congestion, No Sinus Pain, No Hoarseness, No sore throat, No Rhinorrhea, No Swallowing Difficulty Eyes: No Eye Pain, No Swelling, No Redness, No Foreign Body, No Discharge, No Vision Changes Cardiovascular: No Chest Pain, No SOB, No PND, No Dyspnea on Exertion, No Orthopnea, No Edema, No Palpitations Respiratory: No Cough, No Sputum, No Wheezing, No Dyspnea Gastrointestinal: No Nausea, No Vomiting, No Diarrhea, No Constipation, No Pain, No Heartburn, No Anorexia, No Dysphagia, No Hematochezia, No Melena, No Flatulence, No Jaundice Genitourinary: No Dysuria, No Urinary Frequency, No Hematuria, No Urinary Incontinence, No Urgency, No Flank Pain, No Urinary Flow Changes, No Hesitancy Musculoskeletal: Arthralgias, No Myalgias, No Joint Swelling, No Joint Stiffness, No Back Pain, No Neck Pain, No Injury History Skin: No Skin Lesions, No Pruritis Neuro: No Weakness, No Numbness, No Paresthesias, No Loss of Consciousness, No Syncope, No Dizziness, No Headache, No Coordination Changes, No Recent Falls Objective/Exam Narrative Physical exam: General: Awake. obese HEENT: Normocephalic, atraumatic, mucous membranes moist. Heart: Irregular rate and rhythm, no murmurs. Lungs: Clear to auscultation with no wheezing or crackles. Abdomen: Soft, nondistended, nontender, positive bowel sounds. ?No guarding or rebound tenderness. Neurologic: Alert and oriented x3, no gross neurological deficit, and patient able to move all 4 extremities. Extremities: No edema. Skin: No rash or ecchymoses. Assessment & Plan Diagnosis / Problem List (1) Diabetes: Status: Acute Assessment & Plan: Patient was recently diagnosed with type 2 diabetes mellitus during 09/2024 Using metformin 500 Mg p.o. twice daily Complaining of difficulty in losing weight A1c is 6.3 as of 12/23/2024 Plan: -Mounjaro 2.5 Mg once a week is ordered -Freestyle latosha is ordered -Educated on diabetic diet and lifestyle modification -Recommended to follow-up in 3 months with urine protein creatinine ratio -Recommended to follow-up with marketing project lead and spring bender to establish care for her diabetes (2) Atrial fibrillation: Status: Chronic Assessment & Plan: Patient was diagnosed with atrial fibrillation in 09/[address] Barrios for atrial fibrillation Recently her metoprolol dose was increased to 100 Mg p.o. twice daily by Dr. Barrios, per patient Plan: -Continue metoprolol and Xarelto as directed by the trim carpenter (3) Peripheral angiopathy due to diabetes mellitus: Status: Acute Assessment & Plan: -Arterial Doppler done in 09/2024 showed obstructive arterial disease in lower extremities Plan: -Recommended to get CT angio of lower extremities -Started on aspirin (4) Hypertension: Status: Acute Assessment & Plan: Blood pressures are within normal limits during hospital visit Patient is on losartan 50 Mg p.o. daily Plan: -Recommended low-salt diet -Recommended to continue losartan 50 Mg p.o. daily Office Procedures [facility] Level of Care Nursing/Assessment Patient Status: Established Patient Nursing Assessment/Reassessment: Medication Reconciliation, Update PMH in EMR and Vital Signs Coordination of Care: Complex Care and Chronic Disease 1-5, Consent,records obtained, informed consent, Education Simp Pt/Fam and Staff clarify orders Established Patient Charge Established Patient Point Assignment: 85 Established Patient Point Charge: EP Level 3 (80-115)
== END 2024-12-31 15:17 | disposition home or self-care (01) ==
LOC: HODAHC 13:54
PROVIDERS: Supervising Provider Internal Medicine
DX: Z71.2 Person consulting for explanation of examination or test findings (principal); E11.51 Type 2 diabetes mellitus with diabetic peripheral angiopathy without gangrene; Z79.84 Long term (current) use of oral hypoglycemic drugs; I48.91 Unspecified atrial fibrillation; Z79.01 Long term (current) use of anticoagulants; I10 Essential (primary) hypertension
CPT/HCPCS: 99213; G0463

== ENCOUNTER → 2025-01-10 | Outpatient (CLI) | payer OTHER, SELFPAY ==
[2025-01-10 13:16] LABS: Collection Type, Urine Clean Catch
[2025-01-10 13:50] LABS: Bacteria,Urine Rare; Bilirubin,Urine Negative (Negative); Blood,Urine Negative (Negative); Clarity,Urine Clear (Clear/Hazy); Color,Urine Colorless (Lt Yel-Yel); Culture Indicated,Urine Not Indicated; Glucose, Urine Negative (Negative); Ketones,Urine Negative (Negative); Leukocyte Esterase,Urine Negative (Negative); Nitrite,Urine Negative (Negative); Protein,Urine Negative (Neg - Trace); RBC,Urine 1 /hpf (0-3); Specific Gravity,Urine 1.007 (1.001-1.035); Squamous Epithelial Cell,Urine 2 /hpf (0-5); Urobilinogen,Urine Negative mg/dL (0.0-1.0); WBC,Urine < 1 /hpf (0-5)
[2025-01-10 14:03] LABS: Blood Urea Nitrogen 15 mg/dL (9-23); Creatinine (Component) 0.8 mg/dL (0.6-1.3); eGFR > 60 See Note
[2025-01-10 14:10] LABS: Creatinine MALB Rnd Ur < 13 mg/dL (30-125); Creatinine,Random Urine < 13 mg/dL (30-125); Microalbumin, Random Urine < 3 mg/L (0-300); Protein Total, Random Urine < 6 mg/dL (1-14)
== END | disposition home or self-care (01) ==
PROVIDERS: PCP Internal Medicine; Referring Provider Internal Medicine; Visit Provider Internal Medicine
DX: E11.65 Type 2 diabetes mellitus with hyperglycemia (principal)
CPT/HCPCS: 36415; 81001; 82043; 82565; 82570; 84156; 84520

== ENCOUNTER 2025-02-04 13:38 | Outpatient (AMB) | payer OTHER, SELFPAY ==
[2025-02-04 14:07] VITALS: BP 122/83; PULSE 67; RESP 16; TEMP 36.2; O2SAT 97; BMI 58.8
--- NOTE | 2025-02-04 14:07 | PD.RESCLINIC ---
Vital Signs 02/04/25 14:07 Height 1.63 m Height Method Stated Weight 156.263 kg Weight Measurement Method Standing Scale BMI 58.8 BP 122/83 Blood Pressure Source Automatic Cuff Blood Pressure Location Left Upper Arm Position Sitting Respiration 16 Pulse 67 Pulse Source Monitor Temp 97.2 F Temp Source Temporal Artery Scan Pulse Oximetry (%) 97 Oxygen Delivery Method Room Air Allergies/Meds Allergies & Medications Allergies No Known Allergies Allergy (Verified 12/31/24 14:33) Medication Reconciliation ceftriaxone 2 gram intravenous solution 2 g IV QDAY 10/16/24 [Rx Confirmed 02/04/25] furosemide 40 mg tablet 40 mg PO QDAY #30 tabs 11/29/24 [Rx Confirmed 02/04/25] losartan 50 mg tablet 50 mg PO QDAY #30 tabs 11/29/24 [Rx Confirmed 02/04/25] metformin 500 mg tablet 500 mg PO BIDWMEAL #60 tabs 11/29/24 [Rx Confirmed 02/04/25] rivaroxaban 20 mg tablet (Xarelto) 20 mg PO QPM #30 tabs 11/29/24 [Rx Confirmed 02/04/25] aspirin 81 mg tablet,delayed release 81 mg PO QDAY #30 tabs 12/03/24 [Rx Confirmed 02/04/25] tirzepatide 2.5 mg/0.5 mL subcutaneous pen injector (Mounjaro) 2.5 mg (0.5 mL) subcut QWEEK #2 mL 12/03/24 [Rx Confirmed 02/04/25] blood-glucose sensor (FreeStyle Latosha 3 Sensor device) #2 ea 12/31/24 [Rx Confirmed 02/04/25] metformin 1,000 mg tablet,extended release 24hr (osmotic) 1,000 mg PO QDAY #30 tabs 12/31/24 [Rx Confirmed 02/04/25] metoprolol succinate 100 mg tablet,extended release 24 hr 100 mg PO QDAY #30 tabs 12/31/24 [Rx Confirmed 02/04/25] tirzepatide 2.5 mg/0.5 mL subcutaneous pen injector (Mounjaro) 2.5 mg (0.5 mL) subcut QWEEK #2 mL 12/31/24 [Rx Confirmed 02/04/25] NM Intake Visit Data Collection New Patient or Established: Established Patient (seen at [facility] within 3 years) Seen by Clinical Staff ONLY (RN/MA): No Pain Present Currently: No Pain scale:: 0 Pain Scale Used: Ravi-Quezada/Numerical Supervisor Of Operations Required: No PCP or OBGYN visit in last 3 months: No Hx Now: No Do You Feel Safe at Home: Yes Authorities Contacted: N/A Smoking Status Smoking Status: Former smoker Immunization / Flu Flu Vaccine in the Last 12 Months: No Flu Vaccine Exclusion Criteria: No Exclusion Criteria Past Medical History Past Medical History NEUROLOGIC: Negative Neurological Disorders CARDIAC: Positive Cardiac Disorders (CHF), Congestive Heart Failure and Hypertension; Negative Hypercholesterolemia RESPIRATORY: Positive Asthma (SOB); Negative Chronic Obstructive Pulmonary Disease (COPD) GASTROINTESTINAL: Positive Gastrointestinal Disorders and Obesity; Negative Hepatitis GENITOURINARY: Negative Genitourinary Disorders or Renal Disease REPRODUCTIVE: Negative Pelvic Inflammatory Disease ENDOCRINE: Negative Endocrine Disorders, Diabetes Mellitus Type 1 or Diabetes Mellitus Type 2 (pt denies h/x of diabetes) HEMATOLOGIC: Negative Blood Disorders or Sickle Cell Disease OTHER HISTORY: Negative Hospitalization, Autoimmune Disease, Down Syndrome, Developmental Delay, Shingles, Falls, Blood Transfusions, Blood Transfusion Reaction, Anesthesia Reactions, Organ Transplant, Chemotherapy, Radiation Therapy, Hyperbaric Therapy, MRSA, VRSA, Vancomycin-Resistant Enterococci, Human Immunodeficiency Virus (HIV), Chicken Pox, Measles, Mumps, Rubella (Malagasy Measles), Pertussis, Clostridium Difficile or Cancer Family History FAMILY HISTORY: Positive Family Cardiac Disorders; Negative Family Psychiatric Problems, Family Respiratory Disorders, Family Gastrointestinal Problems, Family Cancer, Family Surgery or Family Anesthesia Reaction Surgical History SURGICAL: Negative Coronary Artery Bypass Graft, Valve Replacement, Pacemaker, Carotid Endarterectomy, Thyroidectomy, Hysterectomy or Organ Transplant Social History SMOKING STATUS: Smoking status: Former smoker ALCOHOL: Alcohol Intake: Former HOUSING: Housing: House LIVES WITH: Lives With: Alone Patient Portal Questionaires Social History Living Situation History Housing: House Tobacco History Smoking Status: Former smoker Alcohol History Alcohol Intake: Former Domestic Abuse History Do You Feel Safe at Home: Yes Review of Systems Report any current symptoms Only answer those that you have currently: Past Medical History Past Medical History Have you ever been diagnosed with any of the following: Cardiology Problems Hypercholesterolemia: No Congestive Heart Failure: Yes Hypertension: Yes Respiratory Problems Chronic Obstructive Pulmonary Disease (COPD): No Asthma: Yes (SOB) Stomache/Intestinal Problems Hepatitis: No Obesity: Yes Genital/Urinary Problems Renal Disease: No Reproductive Problems Pelvic Inflammatory Disease: No Endocrine Problems Diabetes Mellitus Type 1: No Diabetes Mellitus Type 2: No (pt denies h/x of diabetes) Blood Problems Sickle Cell Disease: No Other Problems Hospitalization: No Autoimmune Disease: No Down Syndrome: No Developmental Delay: No Shingles: No Falls: No Blood Transfusions: No Blood Transfusion Reaction: No Anesthesia Reactions: No Organ Transplant: No Chemotherapy: No Radiation Therapy: No Hyperbaric Therapy: No MRSA: No VRSA: No Vancomycin-Resistant Enterococci: No Human Immunodeficiency Virus (HIV): No Chicken Pox: No Measles: No Mumps: No Rubella (Malagasy Measles): No Pertussis: No Clostridium Difficile: No Cancer: No Surgical History Carotid Endarterectomy: No Coronary Artery Bypass Graft: No Valve Replacement: No Hysterectomy: No Pacemaker: No Thyroidectomy: No Assessment & Plan Diagnosis / Problem List Orders: Orders Ambulatory Hemoglobin A1C Today E11.9 - Type 2 diabetes mellitus without complications CBC Today [facility] CAD screening BI 4 Weeks Z12.39 - Encounter for other screening for malignant neoplasm of breast Comprehensive Metabolic Panel 4 Weeks I10 - Essential (primary) hypertension Office Procedures [facility] Level of Care Nursing/Assessment Patient Status: Established Patient Nursing Assessment/Reassessment: Medication Reconciliation, Update PMH in EMR and Vital Signs Coordination of Care: Complex Care and Chronic Disease 1-5, Consent,records obtained, informed consent, Education Simp Pt/Fam and Staff clarify orders Established Patient Charge Established Patient Point Assignment: 85 Established Patient Point Charge: Level 3 (46-115)
== END 2025-02-04 15:30 | disposition home or self-care (01) ==
LOC: HODAHC 13:38
DX: E11.9 Type 2 diabetes mellitus without complications (principal); I10 Essential (primary) hypertension; Z12.39 Encounter for other screening for malignant neoplasm of breast
CPT/HCPCS: 99213; G0463

== ENCOUNTER → 2025-03-28 | Outpatient (CLI) | payer OTHER, SELFPAY ==
[2025-03-25 17:35] LABS: Basophils # (Auto) 0.1 Thou/mm3 (0.0-0.2); Basophils % (Auto) 0 % (0-2.5); Eosinophils # (Auto) 0.2 Thou/mm3 (0.0-0.5); Eosinophils % (Auto) 2 % (0-10); Hematocrit 40.8 % (36.0-46.0); Hemoglobin 13.8 g/dL (12.0-16.0); Immature Granulocytes % (Auto) 0 % (0-0); Immature Granulocytes Auto 0.04 Thou/mm3 (0.00-0.00); Lymphocytes # (Auto) 4.1 Thou/mm3 (1.0-4.8); Lymphocytes % (Auto) 31 % (10-50); Mean Corpuscular HGB Conc 33.8 g/dl (31.0-37.0); Mean Corpuscular Hemoglobin 30.1 pg (25.0-35.0); Mean Corpuscular Volume 89 fL (80-100); Monocytes # (Auto) 0.6 Thou/mm3 (0.0-0.8); Monocytes % (Auto) 5 % (0-12); Neutrophils # (Auto) 7.9 Thou/mm3 (1.8-7.7); Neutrophils % (Auto) 61 % (37-80); Nucleated Red Blood Cell % 0 /100 WBC (0); Platelet Count 311 Thou/mm3 (140-440); RDW Standard Deviation 41.6 fL (36.4-46.3); Red Blood Count 4.59 Miln/mm3 (4.00-5.20); White Blood Count 12.9 Thou/mm3 (3.6-11.0)
[2025-03-25 18:21] LABS: Alanine Aminotransferase 21 U/L (10-49); Albumin, Serum 4.6 gm/dL (3.4-4.8); Albumin/Globulin Ratio 1.4 (1.2-2.2); Alkaline Phosphatase 85 U/L (46-116); Anion Gap 9 (7-16); Aspartate Amino Transferase 23 U/L (0-34); BUN/Creatinine Ratio 16 Ratio (12-20); Bilirubin,Total 0.6 mg/dL (0.3-1.2); Blood Urea Nitrogen 16 mg/dL (9-23); Calcium 9.7 mg/dL (8.3-10.6); Calcium (Corrected) 9.7 mg/dL (8.5-10.1); Carbon Dioxide 29.9 mMol/L (20.0-31.0); Chloride 100 mMol/L (98-107); Globulin 3.2 gm/dL (2.3-3.5); Glucose 114 mg/dL (74-106); Osmolality,Calculated 279 (275-295); Sodium 139 mMol/L (136-145); Total Protein 7.8 gm/dL (5.7-8.2); eGFR > 60 See Note
[2025-03-25 20:17] LABS: Glucose Estimated Average 137 mg/dL (80-131); Hemoglobin A1C 6.4 % Hgb (4.8-6.0)
--- NOTE | 2025-03-28 10:00 | XR_ITS ---
Examination: CTA abdominal aorta iliofemoral runoff. 2-D sagittal coronal reconstructions. 3-D reconstructions, vascular March 28, 2025 1135 hours INDICATIONS: Type 2 diabetes with leg pain months Technique: Multiple CTA images of the abdominal aorta iliofemoral runoff arterial vessels, 2.0 mm slice thickness, post intravenous administration 130 cc [id number] 2-D sagittal coronal reconstructions. 3-D reconstructions, vascular 3-D postprocessing, including vascular maximum intensity projection images, 3-D volume rendering Low dose protocols were performed. One or more of the following dose reduction techniques were used; automated exposure control, adjustment of the mA and/or KV according to patient size, use of iterative reconstruction technique. 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 Common iliac and external iliac common femoral arteries intact Right superficial femoral artery right popliteal artery intact Right trifurcation arteries fill to the ankle including dorsalis pedis Left superficial femoral left popliteal artery intact Left trifurcation arteries are visualized, anterior tibial posterior tibial arteries fill to the ankle IMPRESSION: 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
== END | disposition home or self-care (01) ==
LOC: SCAT 09:34
DX: I77.4 Celiac artery compression syndrome (principal); I77.89 Other specified disorders of arteries and arterioles; E11.9 Type 2 diabetes mellitus without complications
CPT/HCPCS: 36415; 75635; 80053; 83036; 85025; A4649; Q9967